=== PATIENT | male | born 1940 | race Caucasian/White ===

== ENCOUNTER 2022-07-18 09:07 | Emergency (ER) | payer MEDICARE, SELFPAY ==
--- NOTE | ~2022-07-18 | XR_ITS ---
EXAMINATION: XR CHEST CLINICAL INFORMATION: Difficulty breathing COMPARISON: 06/03/[address] TECHNIQUE: 2 views of the chest were obtained. FINDINGS: Lungs are hyperaerated with patchy bilateral airspace opacities possibly reflective of pneumonia. Chronicity uncertain as some abnormalities were seen in the lungs back in 2019.. I would recommend a follow-up study after medical management or chest CT for further clarification. Heart size normal with normal caliber pulmonary vessels. There is spondylitic change in the thoracic spine. XR/XR chest 2V IMPRESSION: Bilateral airspace opacities of uncertain chronicity.
[2022-07-18 09:16] VITALS: BP 143/59; PULSE 57; RESP 16; TEMP 36.6; O2SAT 99
[2022-07-18 09:32] VITALS: BP 143/59; PULSE 57; RESP 16; TEMP 36.6; O2SAT 99; BMI 21.6
--- NOTE | 2022-07-18 09:38 | ED_ITS ---
HPI - URI/Sore Throat General Chief Complaint: Upper Respiratory Symptoms Stated Complaint: cough Time Seen by Provider: 07/18/22 09:21 Source: patient Mode of arrival: ambulatory Limitations: no limitations History of Present Illness HPI Narrative: 82 yo male with history of mitral valve stenosis who presents to the ER for evaluation of productive cough for the last 3-4 weeks. He is worried about this because he has surgery for his MV stenosis coming up early next month. He states he has had cough productive of white phlegm, cannot say if it is worse at any point in a day or when he lays flat. He denies any shortness of breath or difficulty breathing. He walks 3 miles per day and has no dyspnea on exertion. He denies any fevers. He was taking and antitussive with resolution of the cough, when he stop taking the antitussive he states his cough returned 3 days later. He denies any chest pain, abdominal pain, nausea, vomiting, diarrhea. MD elicited complaint: cough and nasal congestion Onset (ago): week(s) (3) Consistency: intermittent Severity: moderate Description of mucous: clear and other (White) Able to tolerate fluids by mouth: Yes Exacerbating factors: nothing Relieving factors: OTC cold medicine Associated symptoms: denies other symptoms Treatments prior to arrival: none Related Data Previous Rx's Medication Instructions Recorded amoxicillin 875 mg-potassium 1 tab PO BID #20 tabs 07/18/22 clavulanate 125 mg tablet doxycycline monohydrate 100 mg 100 mg PO BID #20 caps 07/18/22 capsule Allergies Allergy/AdvReac Type Severity Reaction Status Date / Time Iodinated Contrast Media Allergy Unknown ANAPHYLAXIS Unverified 06/22/20 14:57 [CONTRAST, IV] iodine [IODINE] Allergy Unknown RASH Unverified 06/22/20 14:57 Review of Systems Review of Systems: Constitutional: No Fever, No Chills ENT/Mouth: No sore throat, No Rhinorrhea, No Swallowing Difficulty Cardiovascular: No Chest Pain, No SOB, No Orthopnea, No Edema Respiratory: + Cough, + Sputum, No Wheezing, No dyspnea Gastrointestinal: No Nausea, No Vomiting, No Diarrhea, No abdominal Pain Genitourinary: No Dysuria, No Urinary Frequency, No Hematuria Musculoskeletal: No joint pain, No Myalgias Skin: No Skin Lesions, No rash Neuro: No Weakness, No Numbness, No Dizziness, No Headache Psych: + Anxiety/Panic Heme/Lymph: No Bruising, No Lymphadenopathy PMFSH Social History Social History Advance Directives: Yes Advance Directives Information Provided: Yes Advance Directives on File: No Physical Exam Vital Signs: Vital Signs: Last Vital Signs Temp 97.9 F 07/18/22 09:32 Pulse 57 07/18/22 09:32 Resp 16 07/18/22 09:32 BP 143/59 H 07/18/22 09:32 Pulse Ox 99 07/18/22 09:32 O2 Del Method 07/18/22 09:32 BMI result Body Mass Index 21.6 Appearance: Alert. Oriented X3. No acute distress. Eyes: Pupils equal, round and reactive to light. ENT: Pharynx normal. Neck: Normal inspection. Neck supple. CVS: Normal heart rate and rhythm. Pulses normal. Respiratory: No respiratory distress. Breath sounds normal. Abdomen: Soft and nontender. +BS x4 Skin: Skin warm and dry. Normal skin color. Normal skin turgor. No rashes. Extremities: No lower extremity edema. No calf tenderness. Neuro: Oriented X 3. No motor deficit. No sensory deficit. Ambulates with sunni charo gait Course Course Course Narrative: 82 yo male with history of mitral valve stenosis with upcoming valve repair presents to the ER with productive cough x3-4 weeks. Nontoxic appearing with normal VS and unremarkable physical examination. Will get chest x-ray to rule out pneumonia, COVID swab, influenza swab. No evidence of any cardiac etiology. He appears well, ambulating around with no respiratory complaints. No cough heard during his visit today. Reevaluation(s) Reevaluation #1: He is negative for COVID influenza. His chest x-ray is abnormal, is showing bilateral patchy opacities. Reviewed imaging of his CT scan that was done in 2019, there was also some patchy opacities at that time. Unknown if these are chronic or acute. 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 He is not on any treatment or any issues with this. 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 Given his acute productive cough will treat empirically for possible community- acquired pneumonia with Augmentin and doxycycline added for atypical coverage. He will restart his antitussive. 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 He was given strict return precautions. MDM - URI/Sore Throat Lab Data Labs: Lab Results 07/18/22 07/18/22 Range/Units 09:40 09:40 COVID-19 (FAIZA) Negative (Negative) COVID-19 Clin Com See Note Influenza Type A (JUAN C) Negative (Negative) Influenza Type B (JUAN C) Negative (Negative) Influenza A & B Note See Note Discharge Plan Discharge Clinical Impression: Pneumonia Patient Disposition: Home, Self-Care Instructions: Pneumonia (ED) Additional Instructions: You tested negative for COVID-19 and influenza a and B today. Your x-ray today showed bilateral airspace opacities which may have also been present on your CT scan from 2019. Recommend taking the prescribed antibiotics as directed, complete the entire course. Recommend following up with her primary care doctor for repeat imaging of your chest in the future to ensure resolution. You may need a repeat CT scan at some point to ensure these have resolved. Recommend Mucinex 1200 mg 2 times a day for the next 5 days. This will help loosen the mucus and help you bring up more phlegm. If you develop new or worsening symptoms call 911 or come back to the ER for further evaluation. Prescriptions: New amoxicillin-pot clavulanate 875-125 mg tablet 1 tab PO BID Qty: 20 0RF doxycycline monohydrate 100 mg capsule 100 mg PO BID Qty: 20 0RF Interventions: ED Discharge Assessment Last Done: 07/18/22 11:06 Discharge Date/Time: 07/18/22 11:07
--- OUTSIDE RECORDS SUMMARY | 2022-07-18 10:08 | XMS_ITS | Continuity of Care Document ---
:1940 Author Organization [facility] Address [address] [place] [address]- Care Team Providers Name Role Phone Liliya Holden MD Primary Care Physician En[place] [facility] [place](s): 08/14/21 - 09/13/21 [facility] [address] [place] [id number] Attending Physician: Mariela Henning Admitting Physician: Mariela Henning Referring Physician: Admtr ArMichael Allergies, Adverse Reactions, Alerts Substance Reaction Severity Status Lactose intolerance Active contrast media (iodine-based) rash Ac tive Immunizations Given and Recorded Vaccine Date Status Refusal Reason SARS-CoV-2 (COVID-19) mRNA-1273 vaccine1 07/31/21 Recorde d SARS-CoV-2 (COVID-19) mRNA-1273 vaccine 12/18/20 Recorded SARS-CoV-2 (COVID-19) mRNA-1273 vaccine 11/20/20 Recorded 1Result Comment: Booster Medications acetaminophen-oxycodone 325 mg-5 mg oral tablet 2 tablet, By Mouth, Every 4 hours, PRN Pain , Moderate, # 35 capsule, 0 Refills, Maintenance, Tablet Start Date: 04/04/10 Status: Orderedbiotin 1000 mcg oral tablet 1 tablet = 1,000 mcg, By Mouth, Daily, # 30 tablet, 0 Refills, Maintenance, 08/14/21 15:05:00 EST, Tablet, Partial fill upon patient request if the prescription is for a schedule II opioid drug. Start Date: 08/14/21 Status: OrderedCelebrate Multivitamin By Mouth, Daily, 0 Refills, Maintenance, 08/14/21 15:04:00 EST, Partial fill upon patient request ifthe prescription is for a schedule II opioid drug. Start Date: 08/14/21 Status: OrderedColace sodium 100 mg oral capsule 1 capsule = 100 mg, By Mouth, 2 times a day, # 25 capsule, 0 Refills, Maintenance, Capsule Start Date: 04/04/10 Status: OrderedFish Oil 1000 mg oral capsule 1 capsule = 1,000 mg, By Mouth, 2 times a day, 0 Refills, Maintenance, 08/14/21 15:04:00 EST, Capsule, Partial fill upon patient request if the prescription is for a schedule II opioid drug. Start Date: 08/14/21 Status: OrderedGinseng 0 Refills, Maintenance, 08/14/21 15:05:00 EST, Partial fill upon patient request if the prescriptionis for a schedule II opioid drug. Start Date: 08/14/21 Status: OrderedGlucosamine Chondroitin By Mouth, Daily, 0 Refills, Maintenance, 08/14/21 15:06:00 EST, Partial fill upon patient request ifthe prescription is for a schedule II opioid drug. Start Date: 08/14/21 Status: OrderedMagnesium Carbonate = 54 mg, By Mouth, Daily, 0 Refills, Maintenance, 08/14/21 15:05:00 EST, Partial fill upon patient request if the prescription is for a schedule II opioid drug. Start Date: 08/14/21 Status: OrderedPepcid Complete By Mouth, Every 12 hours, 0 Refills, Maintenance, 08/14/21 15:06:00 EST, Partial fill upon patient request if the prescription is for a schedule II opioid drug. Start Date: 08/14/21 Status: Orderedturmeric 500 mg oral capsule 1 capsule = 500 mg, By Mouth, Daily, # 60 capsule, 0 Refills, Maintenance, 08/14/21 15:05:00 EST, Capsule, Partial fill upon patient request if the prescription is for a schedule II opioid drug. Start Date: 08/14/21 Status: Orderedvitamin E 400 iu oral capsule 1 capsule = 400 International_Units, By Mouth, Daily, # 30 capsule, 0 Refills, Maintenance, 08/14/2115:05:00 EST, Capsule, Partial fill upon patient request if the prescription is for a schedule II opioid drug. Start Date: 08/14/21 Status: Ordered Social History Social History Type Response Smoking Status Former smoker, quit more rachel n 30 days ago entered on: 08/14/21 Sex
--- OUTSIDE RECORDS SUMMARY | 2022-07-18 10:08 | XMS_ITS | Continuity of Care Document ---
:1940 Author Organization [facility] Address [address] [place] [address]- Care Team Providers Name Role Phone Adina REAL, Liliya Maria Primary Care Physician Encounter [facility] Date(s): 01/28/22 - 02/27/22 [facility] [address] [place] [address] [place] Allergies, Adverse Reactions, Alerts Substance Reaction Severity [...] Refills, Maintenance, Capsule Start Date: 04/04/10 Status: OrdereddiphenhydrAMINE 25 mg oral capsule 1 capsule = 25 mg, By Mouth, Once, Please take 1 capsule morning of planned CTA Scan, # 1 capsule, 0Refills, Soft Stop, 01/07/22 11:18:00 EDT, [facility]/pharmacy #[id number], Partial fill upon patient request if the prescription is for a schedule II opioid drug. Start Date: 01/07/22 Status: OrderedFish Oil 1000 mg oral capsule [...] opioid drug. Start Date: 08/14/21 Status: OrderedPepcid 20 mg oral tablet 1 tablet = 20 mg, By Mouth, 2 times a day, Take 1 tablet in the morning 1 day prior to scheduled CTAscan Take 1 tablet in the evening 1 day prior to scheduled CTA scan Take 1 tablet in the morning on the day of scheduled CTA scan, # 3 tablet, 0 Ref... Start Date: 01/07/22 Status: OrderedPepcid Complete By Mouth, Every 12 hours, 0 Refills, Maintenance, 08/14/21 15:06:00 EST, Partial fill upon patient request if the prescription is for a schedule II opioid drug. Start Date: 08/14/21 Status: OrderedpredniSONE 50 mg oral tablet 1 tablet = 50 mg, By Mouth, 2 times a day, Take 1 tablet in the morning 1 day prior to scheduled CTAscan Take 1 tablet in the evening 1 day prior to scheduled CTA scan Take 1 tablet in the morning on the day of scheduled CTA scan, # 3 tablet, 0 Ref... Start Date: 01/07/22 Status: Orderedturmeric 500 mg oral capsule 1 [...] smoker, quit more rachel n 30 days ago; Other: quit 27yo; entered on: 12/28/21 Sex
--- OUTSIDE RECORDS SUMMARY | 2022-07-18 10:08 | XMS_ITS | Continuity of Care Document ---
:1940 Author Organization [facility] Address [address] [place] [address]- Care Team Providers Name Role Phone Adina REAL, Liliya Maria Primary Care Physician Encounter [facility] Date(s): 01/11/22 - 02/10/22 [facility] [address] [place] [address] [place] Allergies, Adverse Reactions, Alerts Substance Reaction [...] capsule, 0Refills, Soft Stop, 01/07/22 11:18:00 EDT, [facility]/pharmacy #[id number], Partial fill upon patient request if the [...]
--- OUTSIDE RECORDS SUMMARY | 2022-07-18 10:08 | XMS_ITS | Continuity of Care Document ---
:1940 Author Organization [facility] Address [address] [place] [address]- Care Team Providers Name Role Phone Liliya Holden MD Primary Care Physician Encounter [facility] Date(s): 12/25/21 - 01/24/22 [facility] [address] [place] [id number] Attending Physician: Mariela Henning Admitting Physician: Admtr, Mariela Referring Physician: Admtr, Ar8 Allergies, Adverse Reactions, Alerts Substance Reaction Severity [...] capsule, 0Refills, Soft Stop, 01/07/22 11:18:00 EDT, [facility]/pharmacy #[id number], Partial fill upon patient request if the [...]
--- OUTSIDE RECORDS SUMMARY | 2022-07-18 10:08 | XMS_ITS | Continuity of Care Document ---
:1940 Author Organization [facility] Address [address] [place] [phone]- Care Team Providers Name Role Phone Adina REAL, Liliya Maria Primary Care Physician [place] [facility] [place] - 06/09/[address] [address]- Encounter Diagnosis Chest pain (Final) - 06/09/22 Discharge Disposition: A-D/C Home Attending Physician: Michael Cee MD Admitting Physician: Negar REAL, Dick Referring Physician: Not on Staff, Referring MD Allergies, Adverse Reactions, Alerts Substance Reaction Severity [...] II opioid drug. Start Date: 08/14/21 Status: OrderedFish Oil 1000 mg oral capsule [...] opioid drug. Start Date: 08/14/21 Status: Ordered Problem List Condition Effective Dates Status Health Status Informant Underweight(Confirmed) Active Results Radiology Reports Exam Date Time Procedure Performing Provider Status 06/08/22 5:35 PM Chest 2 Views Frontal and Lat Angely Fernandez; Timothy (Verified) Notes:(Chest 2 Views Frontal and Lat) Reason For Exam: Shortness of Breath RESULT: Chest 2 Views Frontal and Lat Chest 2 Views Frontal and Lat Hx of Present Illness: pt noted c p after 3 mile walk that pt usually walks as baseline pt denies pain at this time. Pt denies sob, productive cough, n v, dark colored stool; Reason: Shortness of Breath; Clinical Question(s): CHF COMPARISON: 04/27/2014 FINDINGS: LINES AND TUBES: None. LUNGS AND PLEURA: Chronic fibrotic changes are reidentified in both lungs. New areas of nodularity are apparent in theright mid and lower lung zones which are indeterminate. No pleural effusion or pneumothorax. HEART, MEDIASTINUM AND FABRICIO: No change. BONES AND SOFT TISSUES: No acute abnormality. IMPRESSION: New nodular areas in the right mid and lower lung zones are indeterminate. They could be inflammatory, infectious or neoplastic. If these persist after treatment, consider CT scan or PET CT scan. A critical result message (Yellow) has been communicated via the [employer] system on 06/08/2022 5:56 PM, Message ID [id number]. WSN: [id number] Ordering Physician: Matt Abreu Dictated By: Thomas Blake MD Dictated Date/Time: 06/08/22 5:56 pm Reviewed By: Thomas Blake MD Signed By: Thomas Blake MD Signed Date/Time: 06/08/22 5:56 pm Transcribed By: KIRAN Transcribed Date/Time: 06/08/22 5:52 pm Vital Signs Most recent to oldest 1 2 3 [Reference Range]: Height 175 cm 175 cm 175 cm (06/09/22 11:23 AM) (06/09/22 7:37 AM) (06/09/22 4:31 AM) Weight 55.5 kg 55.5 kg 55.5 kg (06/09/22 12:00 AM) (06/08/22 7:41 PM) (06/08/22 4:36 PM) Oxygen Saturation [94-100 %] 97 % 100 % 100 % (06/09/22 11:23 AM) (06/09/22 7:37 AM) (06/09/22 4:31 AM) Pulse Rate [55-90 bpm] 57 bpm 53 bpm 54 bpm (06/09/22 11:23 AM) *L* *L* (06/09/22 7:37 AM) (06/09/22 4:31 AM ) Body Mass Index [18.5-24.99] 18.12 18.12 18. 12 *L* *L* *L* (06/09/22 12:00 AM) (06/08/22 7:41 PM) (06/08/22 4:36 PM) Blood Pressure [90-138/55-84 138/65 mm Hg 126/58 mm Hg 121 /64 mm Hg mm Hg] (06/09/22 11:23 AM) (06/09/22 7:37 AM) (06/09/22 4:31 AM) Respiratory Rate [16-30 18 br/min 18 br/min 18 br/mi n br/min] (06/09/22 11:23 AM) (06/09/22 9:00 AM) (06/09/22 7:37 AM) Temperature [96.8-100.4 97.8 DegF 97.7 DegF 98.1 Deg F DegF] (06/09/22 11:23 AM) (06/09/22 7:37 AM) (06/09/22 4:31 AM) Mode of Delivery (Oxygen) Room air Room air Room a ir (06/09/22 11:23 AM) (06/09/22 7:37 AM) (06/09/22 4:31 AM) Blood pressure sites Arm, right Arm, left Arm, right (06/09/22 11:23 AM) (06/09/22 7:37 AM) (06/09/22 4:31 AM) Temperature Route Oral Oral Oral (06/09/22 11:23 AM) (06/09/22 7:37 AM) (06/09/22 4:31 AM) Dry Weight 55.5 kg 55.5 kg 55.5 kg (06/09/22 12:00 AM) (06/08/22 7:41 PM) (06/08/22 4:36 PM) Weight Obtained Via Patient/family stated (06/08/22 4:36 PM) Dry Weight Obtained Via Patient/family stated (06/08/22 4:36 PM) Social History Social History Type Response Smoking Status Former smoker, quit more rachel n 30 days ago; Other: quit 27yo; entered on: 12/28/21 Sex Note [employer]ers[employer] , CIS S: TRANSCRIBE Thomas Blake MD: VERIFY Event Display: Result: Authored Date: [id number] Chest 2 Views Frontal and Lat Hx of Present Illness: pt noted c p after 3 mile walk that pt usually walks as baseline pt denies pain at this time. Pt denies sob, productive cough, n v, dark colored stool; Reason: Shortness of Breath; Clinical Question(s): CHF COMPARISON: 04/27/2014 FINDINGS: LINES AND TUBES: None. LUNGS AND PLEURA: Chronic fibrotic changes are reidentified in both lungs. New areas of nodularity are apparent in theright mid and lower lung zones which are indeterminate. No pleural effusion or pneumothorax. HEART, MEDIASTINUM AND FABRICIO: No change. BONES AND SOFT TISSUES: No acute abnormality. IMPRESSION: New nodular areas in the right mid and lower lung zones are indeterminate. They could be inflammatory, infectious or neoplastic. If these persist after treatment, consider CT scan or PET CT scan. A critical result message (Yellow) has been communicated via the [employer] system on 06/08/2022 5:56 PM, Message ID [id number]. WSN: [id number] Ordering Physician: Matt Abreu Dictated By: Thomas Blake MD Dictated Date/Time: 06/08/22 5:56 pm Reviewed By: Thomas Blake MD Signed By: Thomas Blake MD Signed Date/Time: 06/08/22 5:56 pm Transcribed By: KIRAN Transcribed Date/Time: 06/08/22 5:52 pm Care Team PersonnelName: Liliya Holden MD Address: [address] [place] [address]
--- OUTSIDE RECORDS SUMMARY | 2022-07-18 10:08 | XMS_ITS | Continuity of Care Document ---
:1940 Author Organization [facility] Address [address] [place] [address]- Care Team Providers Name Role Phone Liliya Holden MD Primary Care Physician Encounter [facility] [place] Date(s): 12/25/21 - 01/01/22 [facility] [address] [place] [phone]- Attending Physician: Justin Means MD Referring Physician: Liliya Holden MD Allergies, Adverse Reactions, Alerts Substance Reaction [...] opioid drug. Start Date: 08/14/21 Status: Ordered Vital Signs Most recent to oldest [Reference Range]: 1 Weight 62.1 kg (12/25/21 2:18 PM) Oxygen Saturation [94-100 %] 94 % (12/25/21 2:18 PM) Pulse Rate [55-90 bpm] 80 bpm (12/25/21 2:18 PM) Blood Pressure [90-138/55-84 mm Hg] 116/70 mm Hg (12/25/21 2:18 PM) Respiratory Rate [16-30 br/min] 18 br/min (12/25/21 2:18 PM) Mode of Delivery (Oxygen) Room air (12/25/21 2:18 PM) Blood pressure sites Arm, right (12/25/21 2:18 PM) Weight Obtained Via Patient/family stated (12/25/21 2:18 PM) Social History Social History Type Response Smoking Status Former smoker, quit more rachel n 30 days ago; Other: quit 27yo; entered on: 12/28/21 Sex
--- OUTSIDE RECORDS SUMMARY | 2022-07-18 10:08 | XMS_ITS | Continuity of Care Document ---
:1940 Author Organization [facility] Address [address] [place] [phone]- Care Team Providers Name Role Phone Adina REAL, Liliya Maria Primary Care Physician Encounter [facility] [place] Date(s): 08/09/21 - 09/08/21 [facility] [address] [place] [address]- Allergies, Adverse Reactions, Alerts Substance Reaction Severity [...]
--- OUTSIDE RECORDS SUMMARY | 2022-07-18 10:08 | XMS_ITS | Continuity of Care Document ---
:1940 Author Organization [facility] Address [address] [place] [phone]- Care Team Providers Name Role Phone Adina REAL, Liliya Maria Primary Care Physician Encounter [facility] [place] Date(s): 01/14/22 - 02/13/22 [facility] [address] [place] [phone]- [place] Allergies, Adverse Reactions, Alerts Substance Reaction [...] capsule, 0Refills, Soft Stop, 01/07/22 11:18:00 EDT, [facility]/pharmacy #[id number], Partial fill upon patient request if the [...]
--- OUTSIDE RECORDS SUMMARY | 2022-07-18 10:08 | XMS_ITS | Continuity of Care Document ---
:1940 Author Organization [facility] Address [address] [place] [phone]- Care Team Providers Name Role Phone Adina REAL, Liliya Maria Primary Care Physician [place] [facility] [place]21 [facility] [address] [place] [address]- Attending Physician: Justin Means MD Referring Physician: Rodriguez Brown MD Allergies, Adverse Reactions, Alerts Substance Reaction [...] oldest [Reference Range]: 1 Weight 62.1 kg (08/14/21 3:02 PM) Oxygen Saturation [94-100 %] 97 % (08/14/21 3:02 PM) Pulse Rate [55-90 bpm] 72 bpm (08/14/21 3:02 PM) Blood Pressure [90-138/55-84 mm Hg] 116/72 mm Hg (08/14/21 3:02 PM) Respiratory Rate [16-30 br/min] 18 br/min (08/14/21 3:02 PM) Mode of Delivery (Oxygen) Room air (08/14/21 3:02 PM) Blood pressure sites Arm, right (08/14/21 3:02 PM) Weight Obtained Via Patient/family stated (08/14/21 3:02 PM) Social History Social History Type Response Smoking Status Former smoker, quit more rachel n 30 days ago entered on: 08/14/21 Sex
--- OUTSIDE RECORDS SUMMARY | 2022-07-18 10:08 | XMS_ITS | Continuity of Care Document ---
:1940 Author Organization [facility] Address [address] [place] [phone]- Care Team Providers Name Role Phone Liliya Holden MD Primary Care Physician [place] [facility] [place] 01[place]22 [facility] [address] [place] [phone]- Attending Physician: Mareila Henning Admitting Physician: Mariela Henning Referring Physician: Mariela Henning Allergies, Adverse Reactions, Alerts Substance Reaction Severity [...] capsule, 0Refills, Soft Stop, 01/07/22 11:18:00 EDT, [facility]/pharmacy #[id number], Partial fill upon patient request if the [...]
--- OUTSIDE RECORDS SUMMARY | 2022-07-18 10:08 | XMS_ITS | Continuity of Care Document ---
:1940 Author Organization [facility] Address [address] [place] [phone]- Care Team Providers Name Role Phone Adina REAL, Liliya Maria Primary Care Physician [place] [facility] [place] Date(s): 01/28/22 - 02/27/22 [facility] [address] [place] [phone]- [place] Allergies, Adverse Reactions, Alerts Substance Reaction [...] capsule, 0Refills, Soft Stop, 01/07/22 11:18:00 EDT, [facility]/pharmacy #[id number], Partial fill upon patient request if the [...]
[2022-07-18 10:09] LABS: COVID-19 Test Negative (Negative); IDNOW Serial# 16C4AD1C; IDNOW Serial# 55D5AD1C; Influenza A Negative (Negative); Influenza B2 Negative (Negative)
== END 2022-07-18 11:07 | disposition home or self-care (01) ==
PROVIDERS: Physician Assistant; Emergency Provider Student in an Organized Health Care Education/Training Program; PCP Internal Medicine
DX: J18.9 Pneumonia, unspecified organism (principal); Z20.822 Contact with and (suspected) exposure to COVID-19
CPT/HCPCS: 71046; 87502; 87635; 99283

== ENCOUNTER 2023-06-15 09:49 | Emergency (ER) | payer MEDICARE, SELFPAY ==
[2023-06-15 09:53] VITALS: BP 146/60; PULSE 51; RESP 19; TEMP 36.6; O2SAT 98; BMI 19.2
== END 2023-06-15 12:43 | disposition left against medical advice (07) ==
PROVIDERS: Emergency Provider Emergency Medicine; PCP Internal Medicine
DX: H92.01 Otalgia, right ear (principal)
CPT/HCPCS: 99281

== ENCOUNTER 2024-02-27 09:04 | Emergency (ER) | payer MEDICARE, SELFPAY ==
[2024-02-27 09:09] VITALS: BP 140/56; PULSE 52; RESP 16; TEMP 36.3; O2SAT 98; BMI 20.3
== END 2024-02-27 11:03 | disposition left against medical advice (07) ==
PROVIDERS: Emergency Provider Emergency Medicine
DX: S00.572A Other superficial bite of oral cavity, initial encounter (principal); X58.XXXA Exposure to other specified factors, initial encounter; Y93.9 Activity, unspecified; Y92.9 Unspecified place or not applicable; Y99.9 Unspecified external cause status; Z53.21 Procedure and treatment not carried out due to patient leaving prior to being seen by health care provider
CPT/HCPCS: 99281

== ENCOUNTER 2025-02-26 13:05 | Emergency (ER) | payer MEDICARE, SELFPAY ==
--- NOTE | ~2025-02-26 | CT_ITS ---
CLINICAL HISTORY: weakness CT head without contrast. COMPARISON: None FINDINGS: Loss of eduardo-white matter differentiation within the posterior right occipital lobe. No intracranial hemorrhage. Basal ganglia mineralization. The ventricles are proportional with the degree of moderate global cerebral volume loss without evidence of hydrocephalus. Basilar cisterns are patent. There are periventricular areas of low attenuation compatible with mild white matter small vessel disease. Posterior fossa appears unremarkable. Visualized paranasal sinuses and mastoid air cells are clear. Atherosclerotic intracranial vasculature. No calvarial fracture. IMPRESSION: 1. 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 Recommend correlation with prior imaging and clinical history. MR would be helpful for further characterization. 2. No intracranial hemorrhage. This document has been electronically signed by: Mario Betancourt MD on 02/26/2025 14:33:44
[2025-02-26 13:09] VITALS: BP 117/67; PULSE 68; RESP 18; TEMP 36.6; O2SAT 99; BMI 21.8
--- NOTE | 2025-02-26 13:17 | ECG_ITS ---
Test Reason : WEAKNESS Blood Pressure : */* mmHG Vent. Rate : 61 BPM Atrial Rate : 61 BPM P-R Int : 234 ms QRS Dur : 158 ms QT Int : 462 ms P-R-T Axes : 110 -47 36 degrees QTcB Int : 465 ms Sinus rhythm with 1st degree A-V block with Premature atrial complexes Right bundle branch block Left anterior fascicular block Bifascicular block Abnormal ECG When compared with ECG of 03-Jun-2019 15:35, Premature atrial complexes are now Present LA interval has increased Referred By: Zafar Landon Electronically Signed By: Stanford Bhatti
--- NOTE | 2025-02-26 13:22 | ED.GENADULT ---
HPI - General Adult General Chief complaint: Weakness Stated complaint: off balance memory loss Time Seen by Provider: 02/26/25 13:57 Source: patient Mode of arrival: ambulatory Limitations: no limitations History of Present Illness ED Provider: HPI narrative: 85-year-old male, he states he has been forgetful and has had some instability when he walks, he is still drives lives by himself and travels back and forth to [place] does his own finances. He states about 3 months ago he fell and hit his head and forward had a CAT scan and he feels like he has memory issues started then. Otherwise no fevers or chills, no dysuria. Related Data Previous Rx's ?Medication ?Instructions ?Recorded amoxicillin 875 mg-potassium 1 tab PO BID #20 tabs 07/18/22 clavulanate 125 mg tablet doxycycline monohydrate 100 mg 100 mg PO BID #20 caps 07/18/22 capsule Allergies Allergy/AdvReac Type Severity Reaction Status Date / Time Iodinated Contrast Media Allergy Unknown ANAPHYLAXIS Verified 02/26/25 13:12 [CONTRAST, IV] iodine [IODINE] Allergy Unknown RASH Verified 02/27/24 09:14 Review of Systems Constitutional: Constitutional: Reports as per [facility] Social History Social History Smoked in Last 30 Days: No Use of substances other than those prescribed or required for medical reasons: No Advance Directives: Yes Advance Directives Information Provided: No Advance Directives on File: No Physical Exam ED Vital Signs: Vital Signs - 24 hr 02/26/25 13:09 Temperature 97.9 F Pulse Rate 68 Respiratory Rate 18 Blood Pressure 117/67 Pulse Oximetry 99 Oxygen Delivery Method Room Air BMI result Body Mass Index 21.8 Const Other: Gen: ?Elderly male appropriate for age, no facial trauma no head trauma HEENT: PERRLA, EOMI, MMM, no nystagmus horizontal and vertical Neck: Supple, no LAD CV: RRR, no obvious murmurs appreciated Resp: ?No wheezing rales rhonchi no stridor moving air well Abd: ?Bowel sounds are present, no tenderness no rebound no rigidity MSK: FROM, strength 5/5 all extremities Skin: Warm, dry, intact, Neuro: ?Alert and oriented x3, moving upper and lower extremities symmetrically, no obvious facial asymmetry noted no dysmetria noted upper or lower extremities Course Course Course Narrative: RME, this is a rapid medical exam performed by Gold Landon please refer to primary provider for complete H&P- 85-year-old male presents for evaluation of several months' worth of forgetfulness that he feels is worsening. He also reports difficulty walking in a straight line. Plan for basic labs, CT scan of the brain. He is neurologically intact in triage Medical Decision Making Medical Decision Making MDM Narrative: Consideration for workup as below, patient is otherwise well-appearing, has been otherwise managing well but does report some memory issues disposition to be determined 0312: 1. 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 Recommend correlation with prior imaging and clinical history. MR would be helpful for further characterization. 2. No intracranial hemorrhage I spoke to patient about his CT findings, he has not had any new symptoms this is going on for the past few months, and now re-examined him he has no dysmetria he has no visual field changes, he has no nystagmus, I offered an admission for him he states he would prefer to be discharged to have follow up with the PCP so I feel that this is very reasonable as he has been walking he continues to walk up to 3 miles a day he drives and he can follow up with the PCP and have his out medical optimization. Differential Diagnosis Differential Diagnoses: The differential diagnosis associated with the presentation includes Dementia, UTI, dehydration, cerebellar stroke, cerebellar mass, medication reaction Admission/Observation Consideration of admission/observation: Escalation of care including admission/observation considered Lab Data [facility] Lab Attestation statement: I reviewed the patient's lab results. 02/26/25 14:04 02/26/25 14:04 Labs: Lab Results 02/26/25 02/26/25 Range/Units 14:04 14:34 WBC 5.0 (4.8-10.8) X10*3/uL RBC 3.52 L (4.60-5.80) X10*6/uL Hgb 11.6 L (14.0-18.0) g/dl Hct 33.1 L (42.0-52.0) % MCV 94.0 (80.0-98.0) fL MCH 33.0 (27.0-33.0) pg MCHC 35.0 (31.0-36.0) g/dl RDW 12.5 (11.0-16.0) % Plt Count 115 L (160-400) X10*3/uL MPV 9.5 (9.4-12.4) fL Immature Gran % (Auto) 0.2 (0.0-0.4) % Neut % (Auto) 64.7 (45-73) % Lymph % (Auto) 22.8 (20-40) % [place] % (Auto) 8.3 (2-11) % Eos % (Auto) 2.6 (0-4) % Baso % (Auto) 1.4 (0-2) % Lymph # (Auto) 1.1 L (1.2-4.9) X10*3/uL [place] # (Auto) 0.4 (0.1-1.2) X10*3/uL Eos # (Auto) 0.1 (0.0-0.4) X10*3/uL Baso # (Auto) 0.1 (0.0-0.2) X10*3/uL Abs Immat Gran (auto) 0.01 (0.00-0.03) X10*3/uL Absolute Neuts (auto) 3.2 (2.0-8.3) x10*3/uL Absolute Nucleated RBC 0.000 (0.0-0.012) X10*3/uL Nucleated RBC % (auto) 0.0 (0.0-0.2) /100WBC Sodium 141 (135-145) mmol/L Potassium 4.2 (3.3-5.1) mmol/L Chloride 109 H (96-108) mmol/L Carbon Dioxide 25 (22-29) mmol/L Anion Gap 11 L (12-20) BUN 31 H (9-16) mg/dL Creatinine 0.94 (0.5-1.4) mg/dL Estim Creat Clear Calc 49.2 Estimated GFR > 60 Random Glucose 106 (60-115) mg/dL Calcium 9.3 (8.4-10.2) mg/dL Total Bilirubin 1.1 H (0.0-1.0) mg/dL AST 25 (5-37) U/L ALT 11 (0-40) U/L Alkaline Phosphatase 52 (39-117) U/L Total Protein 6.8 (6.5-8.0) g/dL Albumin 4.2 (3.5-5.0) g/dL Lipase 29 (8-78) U/L Urine Color Yellow Urine Appearance Clear Urine pH 5.0 (5.0-9.0) Ur Specific Cand[place] 1.015 (1.005-1.025) Urine Protein Negative (Neg-Trace) mg/dL Urine Glucose (UA) Negative (Negative) mg/dL Urine Ketones Negative (Negative) mg/dL Urine Blood Trace H (Negative) Urine Nitrite Negative (Negative) Ur Leukocyte Esterase Negative (Negative) Urine RBC 3-5 H (0-2) /HPF Urine WBC 0-5 (0-5) /HPF Ur Squamous Epith Cells 0-2 (0-2) /HPF Urine Bacteria None Seen (None Seen) Hyaline Casts 0-2 (0-2) /LPF Influenza Type A (PCR) NEGATIVE (Negative) Influenza Type B (PCR) NEGATIVE (Negative) RSV RNA Qual (PCR) NEGATIVE (Negative) SARS-CoV-2 RNA (RT-PCR) NEGATIVE (Negative) Independent Interpretation I performed an independent interpretation of an: EKG (61 otherwise normal ECG without dysrhythmia, AV basilio blocks or ST-T changes to suspect underlying ACS, my independent interpretation) Radiology Impression Discussion of test interpretation with radiology: I have reviewed the radiologist's reading. Radiologist Impression: 1. 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 Recommend correlation with prior imaging and clinical history. MR would be helpful for further characterization. 2. No intracranial hemorrhage Discharge Plan Discharge Clinical Impression: Unsteady gait, Occipital stroke Patient Disposition: Home, Self-Care Additional Instructions: Evaluated with unsteady gait for months, your workup today included EKG, urinalysis, cat scan, viral swab, CAT scan of the brain revealed possibly right occipital lobe stroke, it is a small area, you would need outpatient MRI we discussed about whether the reasonable to admit you to the hospital for medical optimization and a brain MRI, but it is also reasonable for you to follow up with the primary care physician as this is now going on for the past few months he has been experienced these symptoms furthermore your physical exam has been completely reassuring some not sure this is an stroke finding. In the meantime just be careful when you walk in you drive if you have worsening symptoms concerns come back to the ER otherwise follow up with the PCP. Prescriptions: No Action amoxicillin-pot clavulanate 875-125 mg tablet 1 tab PO BID Qty: 20 0RF doxycycline monohydrate 100 mg capsule 100 mg PO BID Qty: 20 0RF Referrals: Ninoska Vila RN [Emergency Nurse] - Print Language: Namibian
[2025-02-26 14:07] LABS: MANUAL DIFF FLAG NO
[2025-02-26 14:09] LABS: Basophils Absolute Auto 0.1 X10*3/uL (0.0-0.2); Basophils Percent Auto 1.4 % (0-2); Eosinophils Absolute Auto 0.1 X10*3/uL (0.0-0.4); Eosinophils Percent Auto 2.6 % (0-4); Hematocrit 33.1 % (42.0-52.0); Hemoglobin 11.6 g/dl (14.0-18.0); Imm Gran Abs Auto 0.01 X10*3/uL (0.00-0.03); Imm Gran Pct Auto 0.2 % (0.0-0.4); Lymphocytes Absolute Auto 1.1 X10*3/uL (1.2-4.9); Lymphocytes Percent Auto 22.8 % (20-40); Mean Platelet Volume 9.5 fL (9.4-12.4); Monocytes Absolute Auto 0.4 X10*3/uL (0.1-1.2); Monocytes Percent Auto 8.3 % (2-11); Neutrophils Absolute Auto 3.2 x10*3/uL (2.0-8.3); Neutrophils Percent Auto 64.7 % (45-73); Platelet Count 115 X10*3/uL (160-400); Red Blood Count 3.52 X10*6/uL (4.60-5.80); Red Cell Distribution Width 12.5 % (11.0-16.0)
--- OUTSIDE RECORDS SUMMARY | 2025-02-26 14:14 | XMS_ITS | Continuity of Care Document ---
Author Organization [facility] Address [address] [facility] [address] [place] [address] Phone Care Team Providers Care Arc And Gas Welder Name Role Phone Zion Jauregui MD Unavailable [...] Diagnoses Date Provider Providers Copied on Encounter [facility], [address] [facility] [address], [place], [place], [address] [place] [address], tel:[phone] [facility] No Information Mar-3 1-201 0 Shania Donovan. [address] [facility], [place], [address] [place] [address], . tel:[phone] Referring Provider: Zion Montejo, [address] [facility], [place], [address] [place] [address]. tel:[phone] [facility], [address] [facility] [address] , [place], [address] [place] [address], tel:[phone] [facility] No Information Mar-3 0-[address] [facility], [address] [facility], [place], [address] [place] [address], tel:[phone] [facility] No Information Mar-1 8-201 0 Rani Sulema. [address] [facility], [place], [address] [place] [address], . tel:[phone] Referring Provider: Sulema Baumaner, [address], [place], [address] [place] [address]. tel:[phone] [facility], [address] [facility], [place], [address] [place] [address], tel:[phone] [facility] No Information Nathaniel-0 6-201 0 [place] Sulema. [address] [facility], [place], [address] [place] [address], . tel:[phone] Referring Provider: Sulema Saravia, [address] [facility], [place], [address] [place] [address]. tel:[phone] [facility], [address] [facility], [place], [address] [place] [address], tel:[phone] [facility] No Information Dec-0 8-200 9 Rani Sulema. [address], [place], [address] [place] [address], . tel:[phone] Referring Provider: Sulema Saravia, [address], [place], [address]. tel:[phone] [facility], [address] [facility], [place], [place], [id number], tel:[phone] [facility] No Information Dec-0 200 9 Saji Veronica. [address], [id number], . tel:[phone] Referring Provider: Jeremías Petersen, [address], [place], [address]. tel:[phone] [facility], [address], [id number], tel:[phone] [facility] No Information Dec-0 9 Saji Veronica. [address], [id number], [place]. tel:[phone] Referring Provider: Jeremías Petersen, [address], [address]. tel:[phone] Office/Outpt E&M Estab Phyllis RAMIREZ, [address], [facility] [address], [place], [place], [id number], tel:[phone] Phyllis RAMIREZ No Information Dec-0 200 9 No Information Referring Provider: Jeremías Petersen, [address], [address]. tel:[phone] [facility], [address], [place], [place], [id number], tel:[phone] [facility] No Information Dec-0 200 9 [facility]. [address], [place], [address] [place] [address], . tel:[phone] Referring Provider: Jeremías Petersen, [address] [facility], [place], [address] [place] [address]. tel:[phone] [facility], [address] [facility] [address] , [place], [address] [place] [address], tel:[phone] [facility] No Information 9 Saji Veronica. [address] [facility], [place], [address] [place] [address], . tel:[phone] Referring Provider: Jeremías Peetrsen, [address], [place], [address] [place] [address]. tel:[phone] Offic/outpt E&m Estab Low-mod [facility], [address] [place] [address], [place], [address] [place] [address], tel:[phone] [facility] No Information 9 Raymond Aburto. [address], [place], [address] [place] [address], . tel:[phone] Referring Provider: Lamonte Torres, [address], [place], [address] [place] [address]. tel:[phone] [facility], [address] [facility], [place], [address] [place] [address], tel:[phone] [facility] No Information 9 Raymond Aburto. [address], [place], [address] [place] [address], . tel:[phone] Referring Provider: Lamonte Torres, [address], [place], [address] [place] [address]. tel:[phone] [facility], [address], [place], [address] [place] [address], tel:[phone] [facility] No Information 9 Raymond Aburto. [address] [place], [place] [address]way [facility], [place], [address] [place] [address], . tel:[phone] Referring Provider: Lamonte Torres, [address] [place] [address], [place], [address] [place] [address]. tel:[phone] [facility], [address] [facility], [place], [address] [place] [address], tel:[phone] [facility] No Information 8 Saji Veronica. [address] [place] [address], [address] [place] [address], . tel:[phone] Referring Provider: Jeremías Petersen, [address] [place] [address], [address] [place] [address]. tel:[phone] Offic Cons New/Estab Low Phyllis RAMIREZ, [address], [facility] [address], [place], [place], [id number], tel:[phone] Phyllis RAMIREZ No Information 8 No Information Referring Provider: Jeremías Petersen, [address] [place] [address], [address] [place] [address]. tel:[phone] [facility], [address] [facility], [place], [address] [place] [address], tel:[phone] [facility] No Information 8 Roe Cotto. [address], [place], [address] [place] [address], . tel:[phone] Referring Provider: [place], [address], [place], [address] [place] [address]. tel:[phone] [facility], [address] [place], [place], [id number], tel:[phone] [facility] No Information 8 Saji Veronica. [address], [place], [id number], . tel:[phone] Referring Provider: Jeremías Petersen, [address], [address] [place] [address]. tel:[phone] [facility], [address] [facility], [place], [id number], tel:[phone] [facility] No Information 8 [facility]. [address], [address] [place] [address], . tel:[phone] Referring Provider: Jeremías Petersen, [address], [address] [place] [address]. tel:[phone] [facility], [address], [place], [id number], tel:[phone] [facility] No Information 8 Keagan Oneal. [address], [address] [place] [address], . tel:[phone] Referring Provider: Jeremías Petersen, [address], [address] [place] [address]. tel:[phone] [facility], [address], [place], [id number], tel:[phone] [facility] No Information 8 Saji Veronica. [address], [id number], . tel:[phone] Referring Provider: Jeremías Petersen, [address], [address]. tel:[phone] [facility], [address], [place], [place], [id number], tel:[phone] [facility] No Information 8200 8 Saji Cochran [address], [id number], . tel:[phone] Referring Provider: Jeremías Petersen, [address], [address]. tel:[phone] Family History Family Member Type Diagnosis Age At Onset Father Problem (finding) chronic obstructive jane g disease 82 Mother Problem (finding) Peritonits/ Diverticuli tis 77 Payers Payer name Insurance type Covered democrat ID Sal espinal(s) Medicare [id number] [employer] Benefit Plan [id number] Social History Type Description Quantity Date Captured [...]
[2025-02-26 14:22] LABS: Alanine Aminotransferase 11 U/L (0-40); Albumin Level 4.2 g/dL (3.5-5.0); Alkaline Phosphatase 52 U/L (39-117); Anion Gap 11 (12-20); Aspartate Amino Transferase 25 U/L (5-37); Bilirubin Total 1.1 mg/dL (0.0-1.0); Blood Urea Nitrogen 31 mg/dL (9-16); Calcium 9.3 mg/dL (8.4-10.2); Carbon Dioxide 25 mmol/L (22-29); Chloride 109 mmol/L (96-108); Creatinine Clr Calc Pharmacy 49.2; Estimated Glomerular Filt Rate > 60; Glucose Random 106 mg/dL (60-115); Lipase 29 U/L (8-78); Potassium 4.2 mmol/L (3.3-5.1); Sodium 141 mmol/L (135-145); Total Protein 6.8 g/dL (6.5-8.0)
[2025-02-26 14:39] LABS: Appearance Urine Clear; Color Urine Yellow; Glucose Urine UA Negative (Negative); Leukocyte Esterase Urine Negative (Negative); Nitrite Urine Negative (Negative); Specific Gravity - Urine 1.015 (1.005-1.025); UMIC TRIGGER UACC YES; Urine Blood Trace (Negative); Urine Ketones Negative (Negative); Urine Protein Negative (Neg-Trace)
[2025-02-26 14:44] LABS: Bacteria Urine None Seen (None Seen); Hyaline Casts Urine 0-2 /LPF (0-2); Squamous Epithelial Cell Urine 0-2 /HPF (0-2); WBC Urine 0-5 /HPF (0-5)
[2025-02-26 14:46] LABS: Influenza A PCR NEGATIVE (Negative); Influenza B PCR NEGATIVE (Negative); Resp Syncy Virus RNA Qual PCR NEGATIVE (Negative); SARS COV2 PCR INHOUSE NEGATIVE (Negative)
[2025-02-26 16:10] VITALS: BP 121/45; PULSE 58; RESP 12; O2SAT 99
[2025-02-26 16:12] VITALS: BP 121/45; PULSE 58; RESP 12; TEMP 36.6; O2SAT 99
== END 2025-02-26 16:19 | disposition home or self-care (01) ==
PROVIDERS: Physician Assistant; Emergency Provider Emergency Medicine; PCP Internal Medicine
DX: R26.9 Unspecified abnormalities of gait and mobility (principal); R26.2 Difficulty in walking, not elsewhere classified
CPT/HCPCS: 0241U; 36415; 70450; 80053; 81001; 83690; 85025; 93005; 99284

== ENCOUNTER → 2025-02-26 13:17 | Outpatient (BNV) | payer MEDICARE, SELFPAY | PROVIDERS: Emergency Provider Emergency Medicine; PCP Internal Medicine; Visit Provider Internal Medicine Cardiovascular Disease | DX: I49.1 Atrial premature depolarization (principal); I45.2 Bifascicular block | CPT/HCPCS: 93010 ==

== ENCOUNTER → 2025-02-26 13:18 | Outpatient (BNV) | payer MEDICARE, SELFPAY | PROVIDERS: Emergency Provider Emergency Medicine; PCP Internal Medicine; Visit Provider Radiology Diagnostic Radiology | DX: I63.531 Cerebral infarction due to unspecified occlusion or stenosis of right posterior cerebral artery (principal) | CPT/HCPCS: 70450 ==

== ENCOUNTER 2025-03-01 08:37 | Inpatient (IN) | payer MEDICARE, SELFPAY ==
--- NOTE | ~2025-03-01 | US_ITS ---
CLINICAL HISTORY: Recurrent strokes US Bilateral Carotid Duplex Comparison: None available Findings: Mixed and mild plaque within the imaged common carotid arteries. Mixed and mild plaque within the imaged carotid bulbs. Color doppler and spectral tracings unremarkable, accounting for vessel tortuosity. Peak systolic velocities: Right CCA: 117 cm/s. Right ICA: 45 cm/s. ICA/CCA ratio: 0.4. Right ECA: 91 cm/sec Right vertebral artery flow antegrade Imaged right subclavian 100 cm/sec. Left CCA: 107 cm/s. Left ICA: 90 cm/s. ICA/CCA ratio: 0.8. Left ECA: 41 cm/sec Left vertebral artery flow antegrade. Imaged left subclavian with mild echogenic plaque and 99 cm/sec. IMPRESSION: 1. No significant internal carotid artery stenosis (0-49% stenosis), by SRU consensus guidelines. 2. Imaged vertebral arteries demonstrate antegrade flow at this time. This document has been electronically signed by: Marbin Duron MD on 03/01/2025 19:54:28
--- NOTE | ~2025-03-01 | CT_ITS ---
EXAMINATION: CT HEAD WITHOUT CONTRAST CLINICAL INFORMATION: Unsteadiness COMPARISON: February 26, 2025 TECHNIQUE: Contiguous axial imaging was performed from the skull base to vertex without intravenous administration of contrast. This CT examination was performed using dose optimization techniques as appropriate, variously including the following: *Automated exposure control *Adjustment of mA and/or kV according to patient size (this includes techniques or standardized protocols for targeted exams where dose is matched to indication/reason for exam; i.e. extremities or head) *Use of iterative reconstruction technique DLP: 575 mGy-cm FINDINGS: Bilateral multifocal patchy and confluent deep periventricular white matter hypodensities involving centrum semiovale and bonilla radiata. No acute intracranial hemorrhage, mass effect, midline shift, hydrocephalus or herniation. Multifocal old lacunar infarcts, basal ganglia and extracapsular. Frankel-white matter differentiation is normal. Posterior cranial fossa contents demonstrated normal position of the cerebellar tonsils. Prominence of the extra-axial CSF spaces cerebral sulci and ventricles. Focal encephalomalacia, right parietal/superior parietal lobule. Calcified plaques in the cavernous supraclinoid segments of the ICAs. No air-fluid levels in the paranasal sinuses. Tympanic cavities and mastoid cells are aerated. Pneumatized petrous apices, congenital. CT/CT head/brain wo IV con IMPRESSION: No acute intracranial hemorrhage. Small vessel occlusive disease. Global cerebral atrophy. Prior vascular insult posterior right MCA territory. Atherosclerosis disease, intracranial. Overall stable appearance of the brain. Electronically signed by: Higinio Brantley MD 03/01/2025 10:15 AM EDT
--- NOTE | ~2025-03-01 | MR_ITS ---
EXAMINATION: MR BRAIN WITHOUT IV CONTRAST HISTORY: Unsteadiness, R/O cerebellar stroke TECHNIQUE: Sagittal T1, and axial T1, FLAIR, T2, gradient echo, and diffusion weighted MR images of the brain were obtained. COMPARISON: Correlation is made with an unenhanced head CT performed earlier in the day. FINDINGS: There is diffuse prominence of the ventricular system and cortical sulci, consistent with atrophy. Periventricular and subcortical white matter hyperintensities are noted on the FLAIR and T2-weighted images which are nonspecific, but often seen in the setting of small vessel ischemic disease. There is an old right occipital infarct. There are 2 adjacent punctate foci of slightly increased signal intensity in the left cerebellar hemisphere on diffusion-weighted images, which demonstrate decreased signal intensity on ADC map. These may represent tiny subacute infarcts. There is no mass effect or midline shift. No intra or extra-axial fluid collections are identified. Normal vascular flow voids are noted in the basilar and carotid arteries. The visualized paranasal sinuses are clear. MR/MR head/brain wo con IMPRESSION: Possible tiny subacute left occipital infarcts. Electronically signed by: Jalen Oliva MD 03/01/2025 03:26 PM EDT
[2025-03-01 08:43] VITALS: BP 127/45; PULSE 57; RESP 18; TEMP 36.4; O2SAT 100; BMI 19.7
--- NOTE | 2025-03-01 08:53 | ECG_ITS ---
Test Reason : ams Blood Pressure : */* mmHG Vent. Rate : 52 BPM Atrial Rate : 52 BPM P-R Int : 250 ms QRS Dur : 152 ms QT Int : 498 ms P-R-T Axes : 114 -50 -5 degrees QTcB Int : 463 ms Sinus bradycardia with 1st degree A-V block Right bundle branch block Left anterior fascicular block Bifascicular block Septal infarct , age undetermined Abnormal ECG When compared with ECG of 26-Feb-2025 13:27, Premature atrial complexes are no longer Present Septal infarct is now Present T wave inversion now evident in Inferior leads Referred By: Generic ED Physician Electronically Signed By: JAMES MELENDEZ MD
[2025-03-01 09:15] LABS: MANUAL DIFF FLAG NO
[2025-03-01 09:18] LABS: Basophils Absolute Auto 0.1 X10*3/uL (0.0-0.2); Basophils Percent Auto 1.8 % (0-2); Eosinophils Absolute Auto 0.2 X10*3/uL (0.0-0.4); Eosinophils Percent Auto 4.1 % (0-4); Hematocrit 34.7 % (42.0-52.0); Imm Gran Abs Auto 0.01 X10*3/uL (0.00-0.03); Imm Gran Pct Auto 0.2 % (0.0-0.4); Lymphocytes Absolute Auto 1.1 X10*3/uL (1.2-4.9); Lymphocytes Percent Auto 24.2 % (20-40); Mean Corpuscular HGB Conc 34.6 g/dl (31.0-36.0); Mean Corpuscular Hemoglobin 32.6 pg (27.0-33.0); Mean Corpuscular Volume 94.3 fL (80.0-98.0); Mean Platelet Volume 9.9 fL (9.4-12.4); Monocytes Absolute Auto 0.3 X10*3/uL (0.1-1.2); Monocytes Percent Auto 6.8 % (2-11); Neutrophils Absolute Auto 2.8 x10*3/uL (2.0-8.3); Neutrophils Percent Auto 62.9 % (45-73); Platelet Count 121 X10*3/uL (160-400); Red Blood Count 3.68 X10*6/uL (4.60-5.80); Red Cell Distribution Width 12.4 % (11.0-16.0); White Blood Count 4.4 X10*3/uL (4.8-10.8)
[2025-03-01 09:33] LABS: Anion Gap 12 (12-20); Blood Urea Nitrogen 27 mg/dL (9-16); Calcium 9.4 mg/dL (8.4-10.2); Carbon Dioxide 27 mmol/L (22-29); Chloride 107 mmol/L (96-108); Creatinine Clr Calc Pharmacy 52.5; Estimated Glomerular Filt Rate > 60; Glucose Random 104 mg/dL (60-115); Potassium 4.6 mmol/L (3.3-5.1); Sodium 141 mmol/L (135-145)
--- NOTE | 2025-03-01 09:46 | ED_ITS ---
HPI - General Adult General Chief complaint: Altered Mental Status Stated complaint: Feeling off balance, memory issues Time Seen by Provider: 03/01/25 09:00 Source: patient Mode of arrival: ambulatory Limitations: no limitations History of Present Illness ED Provider: DR. Wilhelm HPI narrative: 85-year-old male came in for evaluation of multiple symptoms. This is an 85-year-old male who lives home independently by himself spend winter in [place] and summer in [place] patient just returned from [place] a month ago started to notice getting more frequent episode of unsteadiness for the past month, patient also noticed increased forgetfulness. Patient report a fall a month ago in [place] before his new symptoms developed, patient reported that he was taken to the hospital had a negative trauma workup then. Patient also reported that he started to use minoxidil to regrow his her about a month ago. Related Data Home Medications ?Medication ?Instructions ?Recorded ?Confirmed furosemide 20 mg tablet 20 mg PO DAILY 03/01/25 lisinopril 2.5 mg tablet 2.5 mg PO DAILY 03/01/25 potassium chloride 10 mEq 10 meq PO DAILY 03/01/25 tablet,extended release warfarin 6 mg tablet mg PO 03/01/25 Allergies Allergy/AdvReac Type Severity Reaction Status Date / Time Iodinated Contrast Media Allergy Unknown ANAPHYLAXIS Verified 03/01/25 08:48 [CONTRAST, IV] iodine [IODINE] Allergy Unknown RASH Verified 03/01/25 08:48 Review of Systems 2 Review of Systems: All other systems are reviewed and are negative Constitutional: Reports as per HPI and Reports no additional constitutional complaints Eyes: Reports as per HPI and Reports no additional eye complaints Reports system reviewed and no additional complaints, except as documented Cardiovascular: Reports as per HPI and Reports no additional cardiovascular complaints Respiratory: Reports as per HPI and Reports no additional respiratory complaints Gastrointestinal: Reports as per HPI and Reports no additional gastrointestinal complaints Genitourinary: Reports no additional female genitourinary complaints Musculoskeletal: Reports no additional musculoskeletal complaints Skin/Breast: Reports system reviewed and no additional complaints, except as docu Psychiatric: Reports no additional psychiatric complaints Endocrine: Reports no additional endocrine complaints Hematologic/Lymphatic: Reports no additional hematologic/lymphatic complaints Allergic/Immunologic: Reports no additional allergic/immunologic complaints Reports system reviewed and no additional complaints, except as documented and Reports Abnormal speech present [facility] Social History Social History Advance Directives: No Advance Directives Information Provided: Yes Physical Exam ED Vital Signs: Vital Signs - 24 hr 03/01/25 08:43 03/01/25 11:18 03/01/25 13:31 Temperature 97.6 F 97.8 F 97.6 F Pulse Rate 57 62 51 Respiratory Rate 18 12 12 Blood Pressure 127/45 L 126/62 114/55 L Pulse Oximetry 100 98 100 Oxygen Delivery Method Room Air Room Air Room Air 03/01/25 16:17 Temperature 97.4 F Pulse Rate 51 Respiratory Rate 12 Blood Pressure 129/57 L Pulse Oximetry 100 Oxygen Delivery Method Room Air BMI result Body Mass Index 19.7 Vital signs have been reviewed and appear to be correct. Blood pressure elevated. Heart rate normal. Respiratory rate normal. Temperature normal. Oxygen saturation normal. Appearance: Alert. Oriented X3. No acute distress. Head: Normal external exam. Normocephalic. Atraumatic. No To signs noted. No raccoon eyes noted Eyes: PERRLA. EOMI. Conjunctiva and sclera normal. Eyelids normal. ENT: TM's Normal. Pharynx normal. Uvula midline. Moist mucous membranes. No trismus noted. No drooling noted. No muffled voice noted. Neck: Normal inspection. Neck supple. FROM. No adenopathy. Thyroid Normal. No meningeal signs. No neck mass noted. CVS: Normal heart rate and rhythm. Heart sound normal. No murmurs noted. Pulses normal throughout. Respiratory: No respiratory distress. Painless inspiration. Breath sounds normal. No wheezes/rales/rhonchi noted. Chest nontender. No accessory muscle usage noted or decreased air movement noted. Abdomen: Soft and nontender. Bowel sounds normal in all 4 quadrants. No distention noted. No organomegaly noted. No visible injury noted. Back: No CVA tenderness. Full range of motion noted. Skin: Skin warm and dry. Normal skin color. Normal skin turgor. No rashes/lesions/lacerations noted. Extremities: No lower extremity edema. Extremities exhibit normal range of motion. Extremities nontender. Neuro: Mental status: Normal attention, orientation, memory, and affect. Cranial nerves: Pupils are equal, round and reactive to light, EOMI, visual frost are fall, face is symmetric, facial sensations are normal. Motor examination normal muscle tone, strength to 4 extremities. DTR are +2, planter's are flexor. Sensory exam; normal coordination, no ataxia, gait stable. Cerebellar exam: [id number] and [id number] is normal. Extrapyramidal system: No tremors, no rigidity with normal facial expressions. 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 Patient's symptoms has been going for a month, case signed out to Dr. Luu. awaot for neurology respond Time: 16:30 Reevaluation #2: This patient was signed out to me by the previous emergency physician. The the patient is an 85-year-old male who had presented with complaints of memory problems and difficulty walking. The patient has been in the emergency room 3 days ago for similar complaints. At that time he had had a CT scan of the brain that showed a possible subacute occipital infarct. The patient declined hospitalization at that time but returns complaining of similar complaints. Today he had a noncontrast head CT and also an MRI. The MRI shows what may be too small subacute cerebellar infarcts. I spoke to the patient. He seems to have a very poor memory. He tells me that he lives alone in [place]. His 20 years ago. He has no children. He moved up from [place] a month ago. He does not seem to have much in the way of social supports. He drove himself to the hospital here today. When I spoke to him he seemed to have a lot of word-finding difficulties that I think were probably more memory related than related to an acute stroke. My overall impression is that the patient is doing poorly and that he is possibly having a series of small strokes. He says that he used to be on warfarin but could not tell me why he was on warfarin. It he was taken off the warfarin about a month and a half ago after a fall. He has some kind of history of mitral valve disease but I am not able to make any other determination about why he might has been on warfarin in the past. My overall impression is that the patient is doing very poorly and that he is quite socially isolated and that he is having small strokes. I think he should be hospitalized for evaluation by Neurology and additional stroke workup and possible cognitive testing. Time: 17:55 Medical Decision Making Differential Diagnosis Differential Diagnoses: The differential diagnosis associated with the presentation includes (Acute stroke, early dementia, electrolyte derangement, severe anemia.) Admission/Observation Consideration of admission/observation: Escalation of care including admission/observation considered Lab Data MDM Lab Attestation statement: I reviewed the patient's lab results. 03/01/25 09:08 03/01/25 09:08 Labs: Lab Results 03/01/25 03/01/25 Range/Units 09:08 12:03 WBC 4.4 L (4.8-10.8) X10*3/uL RBC 3.68 L (4.60-5.80) X10*6/uL Hgb 12.0 L (14.0-18.0) g/dl Hct 34.7 L (42.0-52.0) % MCV 94.3 (80.0-98.0) fL MCH 32.6 (27.0-33.0) pg MCHC 34.6 (31.0-36.0) g/dl RDW 12.4 (11.0-16.0) % Plt Count 121 L (160-400) X10*3/uL MPV 9.9 (9.4-12.4) fL Immature Gran % (Auto) 0.2 (0.0-0.4) % Neut % (Auto) 62.9 (45-73) % Lymph % (Auto) 24.2 (20-40) % [place] % (Auto) 6.8 (2-11) % Eos % (Auto) 4.1 H (0-4) % Baso % (Auto) 1.8 (0-2) % Lymph # (Auto) 1.1 L (1.2-4.9) X10*3/uL [place] # (Auto) 0.3 (0.1-1.2) X10*3/uL Eos # (Auto) 0.2 (0.0-0.4) X10*3/uL Baso # (Auto) 0.1 (0.0-0.2) X10*3/uL Abs Immat Gran (auto) 0.01 (0.00-0.03) X10*3/uL Absolute Neuts (auto) 2.8 (2.0-8.3) x10*3/uL Absolute Nucleated RBC 0.000 (0.0-0.012) X10*3/uL Nucleated RBC % (auto) 0.0 (0.0-0.2) /100WBC Sodium 141 (135-145) mmol/L Potassium 4.6 (3.3-5.1) mmol/L Chloride 107 (96-108) mmol/L Carbon Dioxide 27 (22-29) mmol/L Anion Gap 12 (12-20) BUN 27 H (9-16) mg/dL Creatinine 0.87 (0.5-1.4) mg/dL Estim Creat Clear Calc 52.5 Estimated GFR > 60 Random Glucose 104 (60-115) mg/dL Calcium 9.4 (8.4-10.2) mg/dL Urine Color Yellow Urine Appearance Clear Urine pH 6.0 (5.0-9.0) Ur Specific [place] 1.015 (1.005-1.025) Urine Protein Negative (Neg-Trace) mg/dL Urine Glucose (UA) Negative (Negative) mg/dL Urine Ketones Negative (Negative) mg/dL Urine Blood Trace H (Negative) Urine Nitrite Negative (Negative) Ur Leukocyte Esterase Negative (Negative) Urine RBC 0-2 (0-2) /HPF Urine WBC 0-5 (0-5) /HPF Ur Squamous Epith Cells 0-2 (0-2) /HPF Urine Bacteria None Seen (None Seen) Hyaline Casts 0-2 (0-2) /LPF Independent Interpretation I performed an independent interpretation of an: CT Scan (Head: No acute intracranial pathology.) and MRI (Brain: Subacute left occipital infarction) Radiology Impression Discussion of test interpretation with radiology: I have reviewed the radiologist's reading. Discharge Plan Discharge Clinical Impression: Cerebellar stroke, Cognitive impairment Patient Disposition: Admitted As Inpatient
--- OUTSIDE RECORDS SUMMARY | 2025-03-01 10:11 | XMS_ITS | Continuity of Care Document ---
Author Organization [facility] Address [address] [facility] [address] [place] [address] Phone Care Team Providers Care Hip Hop Dance Instructor Name Role Phone Zion Jauregui MD Unavailable [...] Diagnoses Date Provider Providers Copied on Encounter [facility], [address] [facility] [address], [place], [place], [address] [place] [address], tel:[phone] [facility] No Information Mar-3 1-201 0 Shania Donovan. [address] [facility], [place], [address] [place] [address], . tel:[phone] Referring Provider: Zion Montejo, [address] [facility], [place], [address] [place] [address]. tel:[phone] [facility], [address] [facility] [address] , [place], [address] [place] [address], tel:[phone] [facility] No Information Mar-3 0-[address] [facility], [address] [facility], [place], [address] [place] [address], tel:[phone] [facility] No Information Mar-1 8-201 0 Rani Sulema. [address] [facility], [place], [address] [place] [address], . tel:[phone] Referring Provider: Sulema Baumaner, [address], [place], [address] [place] [address]. tel:[phone] [facility], [address] [facility], [place], [address] [place] [address], tel:[phone] [facility] No Information Nathaniel-0 6-201 0 [place] Sulema. [address] [facility], [place], [address] [place] [address], . tel:[phone] Referring Provider: Sulema Saravia, [address] [facility], [place], [address] [place] [address]. tel:[phone] [facility], [address] [facility], [place], [address] [place] [address], tel:[phone] [facility] No Information Dec-0 8-200 9 Rani Sulema. [address], [place], [address] [place] [address], . tel:[phone] Referring Provider: Sulema Saravia, [address], [place], [address]. tel:[phone] [facility], [address] [facility], [place], [place], [id number], tel:[phone] [facility] No Information Dec-0 200 9 Saji Veronica. [address], [id number], . tel:[phone] Referring Provider: Jeremías Petersne, [address], [place], [address]. tel:[phone] [facility], [address], [id number], tel:[phone] [facility] No Information Dec-0 9 Saji Veronica. [address], [id number], [place]. tel:[phone] Referring Provider: Jeremías Petersen, [address], [address]. tel:[phone] Office/Outpt E&M Estab Phyllis RAMIREZ, [address], [facility] [address], [place], [place], [id number], tel:[phone] Phyllis RAMIREZ No Information Dec-0 200 9 No Information Referring Provider: Jeremías Petersen, [address], [address]. tel:[phone] [facility], [address], [place], [place], [id number], tel:[phone] [facility] No Information Dec-[address] [facility]. [address], [place], [address] [place] [address], . tel:[phone] Referring Provider: Jeremías Petersen, [address] [facility], [place], [address] [place] [address]. tel:[phone] [facility], [address] [facility] , [place], [address] [place] [address], tel:[phone] [facility] No Information 9 Saji Veronica. [address] [facility], [place], [address] [place] [address], . tel:[phone] Referring Provider: Jeremías Petersen, [address], [place], [address] [place] [address]. tel:[phone] Offic/outpt E&m Estab Low-mod [facility], [address] [place] [address], [place], [address] [place] [address], tel:[phone] [facility] No Information 9 Raymond Aburto. [address], [place], [address] [place] [address], . tel:[phone] Referring Provider: Lamonte Torres, [address], [place], [address] [place] [address]. tel:[phone] [facility], [address] [facility], [place], [address] [place] [address], tel:[phone] [facility] No Information 9 Raymond Aburto. [address], [place], [address] [place] [address], . tel:[phone] Referring Provider: Lamonte Torres, [address], [place], [address] [place] [address]. tel:[phone] [facility], [address], [place], [address] [place] [address], tel:[phone] [facility] No Information 9 Raymond Aburto. [address] [place], [place] [address]way [facility], [place], [address] [place] [address], . tel:[phone] Referring Provider: Lamonte Torres, [address] [place] [address], [place], [address] [place] [address]. tel:[phone] [facility], [address] [facility], [place], [address] [place] [address], tel:[phone] [facility] No Information 8 Saji Veronica. [address] [place] [address], [address] [place] [address], . tel:[phone] Referring Provider: Jeremías Petersen, [address] [place] [address], [address] [place] [address]. tel:[phone] Offic Cons New/Estab Low Phyllis RAMIREZ, [address], [facility] [address], [place], [place], [id number], tel:[phone] Phyllis RAMIREZ No Information 8 No Information Referring Provider: Jeremías Petersen, [address] [place] [address], [address] [place] [address]. tel:[phone] [facility], [address] [facility], [place], [address] [place] [address], tel:[phone] [facility] No Information 8 Roe Cotto. [address], [place], [address] [place] [address], . tel:[phone] Referring Provider: [place], [address], [place], [address] [place] [address]. tel:[phone] [facility], [address] [place], [place], [id number], tel:[phone] [facility] No Information 8 Saji Veronica. [address], [place], [place], [id number], . tel:[phone] Referring Provider: Jeremías Petersen, [address], [address] [place] [address]. tel:[phone] [facility], [address] [facility], [place], [place], [id number], tel:[phone] [facility] No Information 8 [facility]. [address], [address] [place] [address], . tel:[phone] Referring Provider: Jeremías Petersen, [address], [address] [place] [address]. tel:[phone] [facility], [address], [place], [place], [id number], tel:[phone] [facility] No Information 8 Keagan Oneal. [address], [address] [place] [address], . tel:[phone] Referring Provider: Jeremías Petersen, [address], [address] [place] [address]. tel:[phone] [facility], [address], [place], [place], [id number], tel:[phone] [facility] No Information 8 Saji Veronica. [address], [id number], . tel:[phone] Referring Provider: Jeremías Petersen, [address], [address]. tel:[phone] [facility], [address], [place], [place], [id number], tel:[phone] [facility] No Information 8200 8 Saji Cochran [address], [id number], . tel:[phone] Referring Provider: Jeremías Petersen, [address], [address]. tel:[phone] Family History Family Member Type Diagnosis Age At Onset Father Problem (finding) chronic obstructive jane g disease 82 Mother Problem (finding) Peritonits/ Diverticuli tis 77 Payers Payer name Insurance type Covered constitution party ID Sal espinal(s) Medicare [id number] [employer] Benefit Plan [id number] Social History Type Description Quantity Date Captured [...]
[2025-03-01 11:18] VITALS: BP 126/62; PULSE 62; RESP 12; TEMP 36.6; O2SAT 98
--- NOTE | 2025-03-01 11:33 | MHC.EDTECH ---
took over assignment at 1100, pt was helped changed into hospital gown, vitals stable and documented, urinal and call correa within reach
--- NOTE | 2025-03-01 12:10 | MHC.EDTECH ---
pt ambulated to and from bathroom with a steady gait and a standby assist. clean catch urine sample collected and sent to lab. pt given recliner chair for comfort.
[2025-03-01 12:14] LABS: Appearance Urine Clear; Color Urine Yellow; Glucose Urine UA Negative (Negative); Leukocyte Esterase Urine Negative (Negative); Nitrite Urine Negative (Negative); Specific Gravity - Urine 1.015 (1.005-1.025); UMIC TRIGGER UACC YES; Urine Blood Trace (Negative); Urine Ketones Negative (Negative); Urine Protein Negative (Neg-Trace)
[2025-03-01 12:19] LABS: Bacteria Urine None Seen (None Seen); Hyaline Casts Urine 0-2 /LPF (0-2); RBC Urine 0-2 /HPF (0-2); Squamous Epithelial Cell Urine 0-2 /HPF (0-2); WBC Urine 0-5 /HPF (0-5)
[2025-03-01 13:31] VITALS: BP 114/55; PULSE 51; RESP 12; TEMP 36.4; O2SAT 100
--- NOTE | 2025-03-01 14:08 | PC.NURSE ---
En route to MRI with Dede Duong (product technician).
[2025-03-01 16:17] VITALS: BP 129/57; PULSE 51; RESP 12; TEMP 36.3; O2SAT 100
--- NOTE | 2025-03-01 17:49 | P.HPHOSP_ITS ---
History of Present Illness Date of Service: 03/01/25 Chief Complaint: Unsteadiness, forgetfullness An 85 years old male with PMH of Sarcoid, Aortic stenosis, Mitral stenosis post TMVR, arthritis among others presenting with near fall and unsteadiness found to have new strokes. The patient lives alone and presented to the ED more than once over the last few days with near falls and feeling unsteady. No chest pain, palpitations, SOB, nausea, vomiting, diarrhea or urinary symptoms. He doesnt feel safe walking around but denies any LOC or focal weakness. He had hx of TMvR and was on Warfarin until few months ago when he stopped taking them but can not remember why (from his prescriptions he is supposed to be on warfarin until March). In ED found to have abnormal brain images with MRI showing old and subacute cerebellar strokes. Admitted for further work up and management. Review of Systems 2 Review of Systems: No fever, chills but has generalized weakness mainly in lower extrmeities No chest pain, palpitation No shortness of breath or coughing No abdominal pain, nausea or vomiting No urinary symptoms No any rash or wounds PMFSH Medical History Mitral stenosis Surgical History S/P transcatheter mitral valve replacement (TMVR) Social History Household Members: None Housing: House Do you presently have visiting nurse or other home services: No Unable to assess alcohol history related to: Unknown Alcohol intake: unknown Patient Tobacco Use Status: Never used Tobacco Smoked in Last 30 Days: No Use of substances other than those prescribed or required for medical reasons: Unknown Currently Displaying Signs/Symptoms of Drug Intoxication Withdrawal: No Have you been hit, kicked, punched, or otherwise hurt by someone within the past year? If so, by whom?: No Do you feel safe in your current relationship?: No Current Relationship Is there a partner from a previous relationship who is making you feel unsafe now?: No Are you made to feel afraid or neglected: No Advance Directives: No Advance Directives Information Provided: Yes Do you have a plan to hurt others: No Plan Recently lost weight without trying: No Eating poorly because of decreased appetite: No Nutrition Risks: No Nutritional Risk Meds Allergies Allergy/AdvReac Type Severity Reaction Status Date / Time Iodinated Contrast Media Allergy Unknown ANAPHYLAXIS Verified 03/01/25 08:48 [CONTRAST, IV] iodine [IODINE] Allergy Unknown RASH Verified 03/01/25 08:48 Active Medications: Current Medications Acetaminophen (Acetaminophen 325 Mg Tablet) 650 mg PO Q6H PRN PRN Reason: Pain, Mild 1-3,fever,headache Aspirin (Aspirin Enteric Coated 81 Mg Tablet.Dr) 81 mg PO DAILY PARAG Calcium Carbonate (Calcium Carbonate 750 Mg Tab.Chew) 750 mg PO Q4H PRN PRN Reason: Heartburn Enoxaparin Sodium (Enoxaparin Sodium 40 Mg/0.4 Ml Syringe) 60 mg SUBCUT Q12H PARAG Magnesium Hydroxide (Milk Of Magnesia 30 Ml Oral.Susp) 30 ml PO DAILY PRN PRN Reason: Constipation Melatonin (Melatonin 3 Mg Tablet) 6 mg PO BEDTIME PRN PRN Reason: Insomnia Ondansetron HCl (Ondansetron Hcl 4 Mg/2 Ml Vial) 4 mg IVPUSH Q8H PRN PRN Reason: Nausea and Vomiting Sodium Chloride (0.9 % Sodium Chloride Flush 3 Ml Syringe) 3 ml IVFLUSH QSHIFT [facility] Home Medications ?Medication ?Instructions ?Recorded ?Confirmed ?Last Taken ?Type aspirin 81 mg tablet,delayed 81 mg PO DAILY 03/01/25 03/01/25 Unknown History release cholecalciferol (vitamin D3) 25 25 mcg PO DAILY 03/01/25 03/01/25 Unknown History mcg (1,000 unit) tablet (Vitamin D3) coQ10 (ubiquinol) 200 mg capsule 200 mg PO DAILY 03/01/25 03/01/25 Unknown History furosemide 20 mg tablet 20 mg PO DAILY 03/01/25 03/01/25 Unknown History glucosam 750 mg-chondroi 100 1 tab PO DAILY 03/01/25 03/01/25 Unknown History mg-hyalur 1.65 mg-CF borate 108 mg tablet (Move [facility]) lisinopril 2.5 mg tablet 2.5 mg PO DAILY 03/01/25 03/01/25 Unknown History multivitamin with minerals-folic 1 tab PO DAILY 03/01/25 03/01/25 Unknown History acid 400 mcg-lycopene 370 mcg tablet (One-A-Day Men's 50 Plus) potassium chloride 10 mEq 10 meq PO DAILY 03/01/25 03/01/25 Unknown History tablet,extended release vitamin B complex 1 tab PO DAILY 03/01/25 03/01/25 Unknown History Physical Exam 2 Vital Signs and Narrative: Vital Signs: Last Vital Signs Temp 97.4 F 03/01/25 16:17 Pulse 51 03/01/25 16:17 Resp 12 03/01/25 16:17 BP 129/57 L 03/01/25 16:17 Pulse Ox 100 03/01/25 16:17 O2 Del Method Room Air 03/01/25 16:17 BMI result Body Mass Index 19.7 Const: Other: Constitutional : Awake, interactive, not in distress Neck : Normal inspection, Supple Cardiovascular : RRR, no JVP, no lower extremity edema Respiratory : good bilateral air entry, no crackles, wheezes or rhonchi Gastrointestinal: soft, lax, Normal bowel sounds, Non tender Skin : Warm, Dry Neurological : Alert & oriented x3, No focal deficit , CN 2-12 within normal Results Labs 03/02/25 07:01 03/02/25 07:01 Labs: Laboratory Results - last 24 hr 03/01/25 03/01/25 09:08 12:03 MCV 94.3 MCH 32.6 MCHC 34.6 RDW 12.4 Plt Count 121 L MPV 9.9 Immature Gran % (Auto) 0.2 Neut % (Auto) 62.9 Lymph % (Auto) 24.2 [place] % (Auto) 6.8 Eos % (Auto) 4.1 H Baso % (Auto) 1.8 Lymph # (Auto) 1.1 L [place] # (Auto) 0.3 Eos # (Auto) 0.2 Baso # (Auto) 0.1 Abs Immat Gran (auto) 0.01 Absolute Neuts (auto) 2.8 Absolute Nucleated RBC 0.000 Nucleated RBC % (auto) 0.0 Anion Gap 12 Estim Creat Clear Calc 52.5 Estimated GFR > 60 Random Glucose 104 Calcium 9.4 Urine Color Yellow Urine Appearance Clear Urine pH 6.0 Ur Specific Romance 1.015 Urine Protein Negative Urine Glucose (UA) Negative Urine Ketones Negative Urine Blood Trace H Urine Nitrite Negative Ur Leukocyte Esterase Negative Urine RBC 0-2 Urine WBC 0-5 Ur Squamous Epith Cells 0-2 Urine Bacteria None Seen Hyaline Casts 0-2 Imaging Radiologist's Impressions: Impressions Head CT 03/01/25 09:43 IMPRESSION: No acute intracranial hemorrhage. Small vessel occlusive disease. Global cerebral atrophy. Prior vascular insult posterior right MCA territory. Atherosclerosis disease, intracranial. Overall stable appearance of the brain. Electronically signed by: Higinio Brantley MD 03/01/2025 10:15 AM EDT RP Brain MRI 03/01/25 14:30 IMPRESSION: Possible tiny subacute left occipital infarcts. Electronically signed by: Jalen Oliva MD 03/01/2025 03:26 PM EDT RP Assessment and Plan (1) S/P transcatheter mitral valve replacement (TMVR): Status: Acute (2) Cognitive impairment: Status: Acute (3) Cerebellar stroke: Status: Acute (4) Unsteadiness: Status: Acute Plan An 85 years old male with PMH of Sarcoid, Aortic stenosis, Mitral stenosis post TMVR, arthritis among others presenting with near fall and unsteadiness found to have new strokes. Acute\subacute stroke Shown on MRI as reported check Carotic US check Echo start ASA restart bridging Warfarin and Lovenox Cardiology and Neurology consults PT\OT eval HTN Lisinopril and lasix DVT PPx Lovenox The patient will likely need 2 overnight hospital stay bridging warfarin and pending cardiology and neurology consults Quality Stroke Does the patient have a stroke diagnosis?: No VTE Prior VTE?: No VTE Risk Level:: Medical - moderate - high VTE Device Contraindication: Treatment Not Indicated VTE Drug Contraindication: N/A - Med Ordered
[2025-03-01] MEDS: Aspirin 81 MG TAB.CHEW 324 MG PO (18:33)
[2025-03-01 19:00] LABS: INTERNATIONAL NORM RATIO 1.1 (0.9-1.1); Prothrombin Time 12.2 SEC (10.9-12.4)
[2025-03-01] MEDS: Enoxaparin Sodium 40 MG/0.4 ML SYRINGE 60 MG SUBCUT (19:56)
--- NOTE | 2025-03-01 21:48 | PHA.MEDREC ---
Pharmacy Consult ? Medication Reconciliation Pharmacy has completed the medication reconciliation. Pt states he no longer takes coumadin, provider made aware
[2025-03-01 23:47] VITALS: BP 120/59; PULSE 58; RESP 20; TEMP 36.6; O2SAT 98
[2025-03-02] VITALS (7 sets, daily range): BP systolic 113–137; BP diastolic 57–65; PULSE 52–57; RESP 16–20; TEMP 36.4–36.8; O2SAT 97–100; BMI 19.7
[2025-03-02] MEDS: Enoxaparin Sodium 40 MG/0.4 ML SYRINGE 60 MG SUBCUT (06:36)
[2025-03-02 07:07] LABS: MANUAL DIFF FLAG NO
[2025-03-02 07:16] LABS: INTERNATIONAL NORM RATIO 1.1 (0.9-1.1); Prothrombin Time 12.5 SEC (10.9-12.4)
[2025-03-02 07:20] LABS: Basophils Absolute Auto 0.1 X10*3/uL (0.0-0.2); Basophils Percent Auto 1.6 % (0-2); Eosinophils Absolute Auto 0.2 X10*3/uL (0.0-0.4); Eosinophils Percent Auto 5.5 % (0-4); Hematocrit 34.4 % (42.0-52.0); Hemoglobin 11.8 g/dl (14.0-18.0); Imm Gran Abs Auto 0.01 X10*3/uL (0.00-0.03); Imm Gran Pct Auto 0.3 % (0.0-0.4); Lymphocytes Absolute Auto 1.1 X10*3/uL (1.2-4.9); Lymphocytes Percent Auto 27.4 % (20-40); Mean Corpuscular HGB Conc 34.3 g/dl (31.0-36.0); Mean Corpuscular Hemoglobin 32.3 pg (27.0-33.0); Mean Corpuscular Volume 94.2 fL (80.0-98.0); Mean Platelet Volume 9.8 fL (9.4-12.4); Monocytes Absolute Auto 0.3 X10*3/uL (0.1-1.2); Monocytes Percent Auto 7.8 % (2-11); Neutrophils Absolute Auto 2.2 x10*3/uL (2.0-8.3); Neutrophils Percent Auto 57.4 % (45-73); Platelet Count 125 X10*3/uL (160-400); Red Blood Count 3.65 X10*6/uL (4.60-5.80); Red Cell Distribution Width 12.3 % (11.0-16.0); White Blood Count 3.8 X10*3/uL (4.8-10.8)
[2025-03-02 07:35] LABS: Alanine Aminotransferase 9 U/L (0-40); Alkaline Phosphatase 48 U/L (39-117); Anion Gap 9 (12-20); Aspartate Amino Transferase 24 U/L (5-37); Bilirubin Total 1.5 mg/dL (0.0-1.0); Blood Urea Nitrogen 29 mg/dL (9-16); Calcium 8.9 mg/dL (8.4-10.2); Carbon Dioxide 27 mmol/L (22-29); Chloride 108 mmol/L (96-108); Creatinine Clr Calc Pharmacy 48.6; Estimated Glomerular Filt Rate > 60; Glucose Random 99 mg/dL (60-115); Potassium 4.1 mmol/L (3.3-5.1); Sodium 140 mmol/L (135-145); Total Protein 6.3 g/dL (6.5-8.0)
[2025-03-02] MEDS: 0.9 % Sodium Chloride Flush 3 ML SYRINGE IVFLUSH ×3 (08:34→20:07)
[2025-03-02] MEDS: Aspirin Enteric Coated 81 MG TABLET.DR PO (08:34)
--- NOTE | 2025-03-02 10:44 | PM.CNCAR ---
History of Present Illness History of Present Illness Date of Service: 03/02/25 Requesting physician: Ihsan Nicholas Consult reason: other (Stroke) Chief complaint: Feeling off balance, memory issues Narrative: I was consulted to see Ahmet in cardiology consultation today for prior cardiovascular issues and hospital admission with new cerebellar stroke. Patient has a poor historian and history was obtained from [facility] records as well as current records. Patient with prior transcatheter mitral valve replacement as he was considered high risk for open heart surgery and this was done as a part of a trial and was done in [place] for significant mitral regurgitation with underlying mitral annular calcification. Patient has no obvious history of atrial fibrillation but was on warfarin therapy post transcatheter mitral valve replacement and subsequently this was decided to be stopped last year after seeing local law office receptionist. However he also follows with a cardiology group in [place], whose records currently not available. Patient subsequently while in [place] had it seems like evaluation of the valve and felt like that was strut fracture and thrombosis and was started on warfarin again. And he was on warfarin up to 5-6 weeks ago and was stopped, patient says that would was discussed with the cardiology group. I spoke with Dr. Mendoza at [facility] and he said that decision was not made through his office and he was not aware of it. However patient came with memory loss and progressive unsteadiness and subsequently was noted multiple chronic as well with a subacute infarct including in the cerebellum as well as lacunar infarcts. This most likely are embolic. There again are no symptoms or signs suggestive of atrial fibrillation. Patient addition has prior history of possible sarcoidosis [id number] aortic stenosis arthritis. Cardiology consult was sought for further management. Overnight telemetry has shown no atrial fibrillation shows sinus rhythm. Review of Systems Review of Systems: Yes Unobtainable due to mental status [facility] Past Medical History Medical History Mitral stenosis Surgical History Surgical History S/P transcatheter mitral valve replacement (TMVR) Social History Social History Household Members: None Housing: House Do you presently have visiting nurse or other home services: No Unable to assess alcohol history related to: Unknown Alcohol intake: unknown Patient Tobacco Use Status: Never used Tobacco Smoked in Last 30 Days: No Use of substances other than those prescribed or required for medical reasons: Unknown Currently Displaying Signs/Symptoms of Drug Intoxication Withdrawal: No Have you been hit, kicked, punched, or otherwise hurt by someone within the past year? If so, by whom?: No Do you feel safe in your current relationship?: No Current Relationship Is there a partner from a previous relationship who is making you feel unsafe now?: No Are you made to feel afraid or neglected: No Advance Directives: No Advance Directives Information Provided: Yes Do you have a plan to hurt others: No Plan Recently lost weight without trying: No Eating poorly because of decreased appetite: No Nutrition Risks: No Nutritional Risk Meds Allergies Allergy/AdvReac Type Severity Reaction Status Date / Time Iodinated Contrast Media Allergy Unknown ANAPHYLAXIS Verified 03/01/25 08:48 [CONTRAST, IV] iodine [IODINE] Allergy Unknown RASH Verified 03/01/25 08:48 Active Medications: Current Medications Acetaminophen (Acetaminophen 325 Mg Tablet) 650 mg PO Q6H PRN PRN Reason: Pain, Mild 1-3,fever,headache Aspirin (Aspirin Enteric Coated 81 Mg Tablet.) 81 mg PO DAILY [facility] Last Admin: 03/02/25 08:34 Dose: 81 mg Calcium Carbonate (Calcium Carbonate 750 Mg Tab.Chew) 750 mg PO Q4H PRN PRN Reason: Heartburn Enoxaparin Sodium (Enoxaparin Sodium 40 Mg/0.4 Ml Syringe) 60 mg SUBCUT Q12H [facility] Last Admin: 03/02/25 06:36 Dose: 60 mg Magnesium Hydroxide (Milk Of Magnesia 30 Ml Oral.Susp) 30 ml PO DAILY PRN PRN Reason: Constipation Melatonin (Melatonin 3 Mg Tablet) 6 mg PO BEDTIME PRN PRN Reason: Insomnia Ondansetron HCl (Ondansetron Hcl 4 Mg/2 Ml Vial) 4 mg IVPUSH Q8H PRN PRN Reason: Nausea and Vomiting Sodium Chloride (0.9 % Sodium Chloride Flush 3 Ml Syringe) 3 ml IVFLUSH QSHIFT [facility] Last Admin: 03/02/25 08:34 Dose: 3 ml Warfarin Sodium (Warfarin Sodium 10 Mg Tablet) 10 mg PO DAILY@1800 [facility] Home Medications ?Medication ?Instructions ?Recorded ?Confirmed ?Last Taken ?Type aspirin 81 mg tablet,delayed 81 mg PO DAILY 03/01/25 03/01/25 Unknown History release cholecalciferol (vitamin D3) 25 25 mcg PO DAILY 03/01/25 03/01/25 Unknown History mcg (1,000 unit) tablet (Vitamin D3) coQ10 (ubiquinol) 200 mg capsule 200 mg PO DAILY 03/01/25 03/01/25 Unknown History furosemide 20 mg tablet 20 mg PO DAILY 03/01/25 03/01/25 Unknown History glucosam 750 mg-chondroi 100 1 tab PO DAILY 03/01/25 03/01/25 Unknown History mg-hyalur 1.65 mg-CF borate 108 mg tablet ([facility]) lisinopril 2.5 mg tablet 2.5 mg PO DAILY 03/01/25 03/01/25 Unknown History multivitamin with minerals-folic 1 tab PO DAILY 03/01/25 03/01/25 Unknown History acid 400 mcg-lycopene 370 mcg tablet (One-A-Day Men's 50 Plus) potassium chloride 10 mEq 10 meq PO DAILY 03/01/25 03/01/25 Unknown History tablet,extended release vitamin B complex 1 tab PO DAILY 03/01/25 03/01/25 Unknown History Physical Exam Vital Signs: Vital Signs: Last Vital Signs Temp 98.2 F 03/02/25 07:36 Pulse 53 03/02/25 08:49 Resp 20 03/02/25 07:36 BP 124/58 L 03/02/25 08:49 Pulse Ox 100 03/02/25 08:49 O2 Del Method Room Air 03/02/25 07:36 BMI result Body Mass Index 19.7 Const: General: cooperative, comfortable, alert and awake Nutritional Appearance: thin and other (Frail appearing elderly man) HEENT: Head: Yes normocephalic Neck: Neck: Yes trachea midline, Yes supple and Yes no JVD Resp: Effort & Inspection: decreased respiratory effort Auscultation: clear to auscultation bilaterally Cardio: Jugular venous distension: no JVD Rate: bradycardic Rhythm: regular rhythm Heart sounds: S1 normal heart sound present, S2 normal heart sound present, no click, no gallops and Murmur heart sound present systolic mid, decrescendo and crescendo GI: Auscultation: normal bowel sounds Skin: General skin exam: no rashes or lesions noted and ecchymosis Neuro: General: moves all extremities Extrem: General: Yes no clubbing, cyanosis or edema Psych: Appearance: grossly normal Objective Labs and Meds 03/02/25 07:01 03/02/25 07:01 Lab results: Laboratory Results - last 24 hr 03/01/25 03/01/25 03/02/25 12:03 18:42 07:01 WBC 3.8 L RBC 3.65 L Hgb 11.8 L Hct 34.4 L MCV 94.2 MCH 32.3 MCHC 34.3 RDW 12.3 Plt Count 125 L MPV 9.8 Immature Gran % (Auto) 0.3 Neut % (Auto) 57.4 Lymph % (Auto) 27.4 [place] % (Auto) 7.8 Eos % (Auto) 5.5 H Baso % (Auto) 1.6 Lymph # (Auto) 1.1 L [place] # (Auto) 0.3 Eos # (Auto) 0.2 Baso # (Auto) 0.1 Abs Immat Gran (auto) 0.01 Absolute Neuts (auto) 2.2 Absolute Nucleated RBC 0.000 Nucleated RBC % (auto) 0.0 PT 12.2 12.5 H INR 1.1 1.1 Sodium 140 Potassium 4.1 Chloride 108 Carbon Dioxide 27 Anion Gap 9 L BUN 29 H Creatinine 0.94 Estim Creat Clear Calc 48.6 Estimated GFR > 60 Random Glucose 99 Calcium 8.9 Total Bilirubin 1.5 H AST 24 ALT 9 Alkaline Phosphatase 48 Total Protein 6.3 L Albumin 4.0 Urine Color Yellow Urine Appearance Clear Urine pH 6.0 Ur Specific [place] 1.015 Urine Protein Negative Urine Glucose (UA) Negative Urine Ketones Negative Urine Blood Trace H Urine Nitrite Negative Ur Leukocyte Esterase Negative Urine RBC 0-2 Urine WBC 0-5 Ur Squamous Epith Cells 0-2 Urine Bacteria None Seen Hyaline Casts 0-2 EKG shows normal sinus rhythm with bifascicular block Imaging Radiologist's impression: Impressions Brain MRI 03/01/25 14:30 IMPRESSION: Possible tiny subacute left occipital infarcts. Electronically signed by: Jalen Oliva MD 03/01/2025 03:26 PM EDT RP Assessment and Plan (1) Cerebellar stroke: Status: Acute Patient with reported cerebellar stroke as well as having multiple other subacute infarcts in the occipital lobe. These are suggestive of embolic phenomenon. 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 At this point time I discussed with his law office receptionist Dr. Mendoza and also discussed with hospitalist team. Best to restart oral anticoagulation therapy. Patient can be started on Eliquis, given his age and weight on 2.5 mg b.i.d.. Discussed with him about need for the same. Given the possibility of underlying atrial fibrillation I think he would benefit from placement of implantable loop recorder. This was discussed with his primary law office receptionist as well and he is in agreement. Discussed with the patient about risks benefits. He understands. Will also need to discuss with his family. Once implantable loop recorder has been place, patient can be discharged from cardiac perspective. Procedures Date of Service Date of Service: 03/02/25
--- NOTE | 2025-03-02 14:19 | P.BOP_ITS ---
Brief Operative Note Date of Service: 03/02/25 Pre-op diagnosis: CVA Post-op diagnosis: same Procedure: Placement of implantable loop recorder Implants: After obtaining informed consent patient was in the minor surgery suite. Patient was laid supine on the operating table. Patient is precordial area was then prepped and draped in a sterile fashion. Patient was then given 2% lidocaine with epinephrine intradermally and subcutaneously in the 4th intercostal space. A [employer] implantable loop recorder with serial number([id number]) was then implanted in the subcutaneous space using modified Seldinger technique. Measured R-waves were at 0.51 mV with good P-waves identified. The wound was then closed with Steri-Strips. Pressure dressing was then applied. Surgeon: Elkin Hughes MD Anesthesia: local Was an Telemarketer Supervisor used for this Procedure?: No Estimated blood loss (mL): 2 Pathology: none sent Condition: stable Disposition: floor Complications (if any): None
--- NOTE | 2025-03-02 14:21 | P.DS_ITS ---
DS: Providers Provider Date of Service: 03/02/25 Date of admission: 03/01/25 17:50 Date of discharge: 03/02/25 Primary care physician: Liliya Holden MD Consults: 03/01/25 17:38 Consult to Neurology Routine Consulting Provider: [facility] Reason for consultation: recurrent strokes, Hx of Warfarin use. 03/01/25 17:47 Consult to Cardiology Routine Consulting Provider: [facility] Reason for consultation: Multiple stroke with Hx of TMVR DS: Diagnosis Discharge Diagnosis (1) Cerebellar stroke: Status: Acute (2) Unsteadiness: Status: Acute (3) S/P transcatheter mitral valve replacement (TMVR): Status: Acute DS: Summary Hospital Course Hospital Course: Admission note HPI An 85 years old male with PMH of Sarcoid, Aortic stenosis, Mitral stenosis post TMVR, arthritis among others presenting with near fall and unsteadiness found to have new strokes. The patient lives alone and presented to the ED more than once over the last few days with near falls and feeling unsteady. No chest pain, palpitations, SOB, nausea, vomiting, diarrhea or urinary symptoms. He doesnt feel safe walking around but denies any LOC or focal weakness. He had hx of TMvR and was on Warfarin until few months ago when he stopped taking them but can not remember why (from his prescriptions he is supposed to be on warfarin until March). In ED found to have abnormal brain images with MRI showing old and subacute cerebellar strokes. Admitted for further work up and management. Hospital course The patient was admitted for evaluation of worsening unsteadiness. brain images including MRI were concerning for possible subacute left occipital infarct along with old right occipital infarct and other small left cerebellar foci that might represent subacte embolic events. carotid US negative for stenosis. He used to take Warfarin that was stopped weeks ago. the concern if he has PAF and showring clots. Discussed with cardiology who recommended starting Eliquis age\weight adjusted dose of 2.5 mg bid. To follow with cardiology as outpatient. He was seen by PT who recommended home PT for home safety. A Loop recorder was placed by cardiology to monitor his heart rhythm as outpatient. Discharge plan Physical therapy at home Start Eliquis 2.5 mg two times a day Loop recorder placed to monitor heart rhythm Follow with cardiology as outpatient The patient made quicker than expected recovery and will not need 2 overnight hospital stay. Time Attestation Discharge Coordination Time (in mins): 38 Quality: Safe Use of Opioids Does Pt have an Active Cancer Diagnosis on the Problem List?: No Quality: Stroke Does the patient have a stroke diagnosis?: No Physical Exam Vital Signs: Vital Signs: Last Vital Signs Temp 98.0 F 03/02/25 10:54 Pulse 57 03/02/25 10:54 Resp 16 03/02/25 10:54 BP 137/62 03/02/25 10:54 Pulse Ox 99 03/02/25 10:54 O2 Del Method Room Air 03/02/25 10:54 BMI result Body Mass Index 19.7 Const: Other: Constitutional : Awake, interactive, not in distress Neck : Normal inspection, Supple Cardiovascular : RRR, no JVP, no lower extremity edema Respiratory : good bilateral air entry, no crackles, wheezes or rhonchi Gastrointestinal: soft, lax, Normal bowel sounds, Non tender Skin : Warm, Dry Neurological : Alert & oriented x3, No focal deficit , CN 2-12 within normal DS: Data Data Completed and Pending Labs on day of discharge: Laboratory Results - last 24 hr 03/01/25 03/02/25 18:42 07:01 WBC 3.8 L RBC 3.65 L Hgb 11.8 L Hct 34.4 L MCV 94.2 MCH 32.3 MCHC 34.3 RDW 12.3 Plt Count 125 L MPV 9.8 Immature Gran % (Auto) 0.3 Neut % (Auto) 57.4 Lymph % (Auto) 27.4 [place] % (Auto) 7.8 Eos % (Auto) 5.5 H Baso % (Auto) 1.6 Lymph # (Auto) 1.1 L [place] # (Auto) 0.3 Eos # (Auto) 0.2 Baso # (Auto) 0.1 Abs Immat Gran (auto) 0.01 Absolute Neuts (auto) 2.2 Absolute Nucleated RBC 0.000 Nucleated RBC % (auto) 0.0 PT 12.2 12.5 H INR 1.1 1.1 Sodium 140 Potassium 4.1 Chloride 108 Carbon Dioxide 27 Anion Gap 9 L BUN 29 H Creatinine 0.94 Estim Creat Clear Calc 48.6 Estimated GFR > 60 Random Glucose 99 Calcium 8.9 Total Bilirubin 1.5 H AST 24 ALT 9 Alkaline Phosphatase 48 Total Protein 6.3 L Albumin 4.0 Imaging MRI - head: Radiologist's impression: ITS Impressions Head CT 03/01/25 09:43 IMPRESSION: No acute intracranial hemorrhage. Small vessel occlusive disease. Global cerebral atrophy. Prior vascular insult posterior right MCA territory. Atherosclerosis disease, intracranial. Overall stable appearance of the brain. Electronically signed by: Higinio Brantley MD 03/01/2025 10:15 AM EDT RP Brain MRI 03/01/25 14:30 IMPRESSION: Possible tiny subacute left occipital infarcts. Electronically signed by: Jalen Oliva MD 03/01/2025 03:26 PM EDT RP Discharge Plan Discharge Anticipated Discharge Date/Time: 03/02/25 14:12 Patient Disposition: Home Health Service Discharge Diagnosis: Cerebellar stroke Unsteadiness Referrals: [facility] [Outside] - 1 Week Liliya Holden MD [Primary Care Provider] - 1 Week Discharge Medications: New Eliquis 2.5 mg Tablet 2.5 mg PO BID Qty: 180 0RF Continued potassium chloride 10 mEq tablet extended release 10 meq PO DAILY furosemide 20 mg tablet 20 mg PO DAILY lisinopril 2.5 mg tablet 2.5 mg PO DAILY aspirin 81 mg Tablet,Delayed Release (Dr/Ec) 81 mg PO DAILY vitamin B complex Tablet 1 tab PO DAILY cholecalciferol (vitamin D3) [Vitamin D3] 25 mcg (1,000 unit) Tablet 25 mcg PO DAILY [facility] 750 mg-100 mg- 1.65 mg-108 mg Tablet 1 tab PO DAILY One-A-Day Men's 50 Plus 400-370 mcg Tablet 1 tab PO DAILY coQ10 (ubiquinol) 200 mg Capsule 200 mg PO DAILY Discharge Orders: Discharge Order (Routine); Ordered 03/02/25 Ordered By: Ihsan Nicholas Diet: Advance to usual diet Activity on Discharge: As tolerated Stand Alone Forms: Patient Portal Discharge page Print Language: Micronesian Care Plan Goals: Physical therapy at home Start Eliquis 2.5 mg two times a day Loop recorder placed to monitor heart rhythm Follow with cardiology as outpatient Health Concerns: Unsteadiness Stroke Plan of Treatment: Eliquis Assessment: as above
--- NOTE | 2025-03-02 14:55 | W.MHC.F2F ---
Service Date Service Date: 03/02/25 Encounter Date of encounter: 03/02/25 Reasons for Services Signs and symptoms assessed: unsteadiness Reason for physical therapy: home safety and mobility and therapeutic exercises Homebound: Leaving the home is medically contraindicated at this time without the asist of a device and/or another person due th the listed conditions above and below. Reason homebound: unsteady gait / fall risk Certification: Based on the above findings, I certify that this patient is confined to the home and needs intermittent halfway care, physical therapy and/or speech therapy, or continues to need occupational therapy. The patient is under my care, and I have initiated the establishment of the plan of care. The patient will be followed by a physician who will periodically review the plan of care. Time Spent With Patient Time: Total time managing care of this patient today ____ minutes.
--- NOTE | 2025-03-02 15:45 | MHC.CM.PN ---
Addendum entered by Vanesa Mclaughlin RN 03/02/25 16:24: [facility] UNABLE TO DO HOME SAFETY EVAL UNTIL NEXT WEEK, [facility] REFERRAL EXPANDED AND PT WILL LIKELY DC IN AM ONCE SERVICES SECURED. Original Note: IMM 03/02/25 DELIVERED TO BEDSIDE, PT W/ACUTE INFARCTS, OT RECOMMENDING HOME SERVICES AND PT RECOMMENDING HOME SAFETY EVAL, PT WAS STEADY ON FEET WHILE AMBULATING AND DID NOT ASSISTANCE W/TRANSFERS. PT REPORTS HE LIVES IN [place] 6MOS AND THEN HERE FOR 6MOS OUT OF THE YEAR, PT DENIES USE OF DME/HOME SERVICES AND GOAL IS TO DC HOME, [facility] WILL PROVIDE ABOVE SERVICES, PT WOULD LIKE TO SELF TRANSPORT HE DROVE HIS CAR TO [facility]. DID OFFER ALTERNATE TRANSPORT HOME FOR PT HOWEVER PT HAS DECLINED. [facility] TO FILL NEW ELIQUIS PERSCRIPTION AND DELIVER TO BEDSIDE PRIOR TOO DC TODAY.
--- NOTE | 2025-03-02 17:37 | P.CNNE_ITS ---
History of Present Illness Data of Consult Service Date: 03/02/25 Primary Care Provider: Liliya Holden MD [facility] Reason for consult: Balance problem This is an 85 years old male with h/o Sarcoid, Aortic stenosis, Mitral stenosis post TMVR, presenting with near fall and unsteadiness. Sx have resolved and is back to baseline. The patient lives alone and presented to the ED more than once over the last few days with near falls and feeling unsteady. No chest pain, palpitations, SOB, nausea, vomiting, diarrhea or urinary symptoms. He doesnt feel safe walking around but denies any LOC or focal weakness. Tripped and fell on a curb 1 month ago and hit his face. He had hx of TMvR and was on Warfarin until few months ago when he stopped taking them but can not remember why (from his prescriptions he is supposed to be on warfarin until March). Carotid doppler negative for significant stenosis. MRI reviewed. There is NO new stroke. Cerebellum looks fine. 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 [facility] Past Medical History Medical History Mitral stenosis Surgical History Surgical History S/P transcatheter mitral valve replacement (TMVR) Social History Social History Household Members: None Housing: House Do you presently have visiting nurse or other home services: No Unable to assess alcohol history related to: Unknown Alcohol intake: unknown Patient Tobacco Use Status: Never used Tobacco Smoked in Last 30 Days: No Use of substances other than those prescribed or required for medical reasons: Unknown Currently Displaying Signs/Symptoms of Drug Intoxication Withdrawal: No Have you been hit, kicked, punched, or otherwise hurt by someone within the past year? If so, by whom?: No Do you feel safe in your current relationship?: No Current Relationship Is there a partner from a previous relationship who is making you feel unsafe now?: No Are you made to feel afraid or neglected: No Advance Directives: No Advance Directives Information Provided: Yes Do you have a plan to hurt others: No Plan Recently lost weight without trying: No Eating poorly because of decreased appetite: No Nutrition Risks: No Nutritional Risk service: No Meds Allergies Allergy/AdvReac Type Severity Reaction Status Date / Time Iodinated Contrast Media Allergy Unknown ANAPHYLAXIS Verified 03/01/25 08:48 [CONTRAST, IV] iodine [IODINE] Allergy Unknown RASH Verified 03/01/25 08:48 Active Medications: Current Medications Acetaminophen (Acetaminophen 325 Mg Tablet) 650 mg PO Q6H PRN PRN Reason: Pain, Mild 1-3,fever,headache Apixaban (Apixaban 2.5 Mg Tablet) 2.5 mg PO BID [facility] Aspirin (Aspirin Enteric Coated 81 Mg Tablet.Dr) 81 mg PO DAILY [facility] Last Admin: 03/02/25 08:34 Dose: 81 mg Calcium Carbonate (Calcium Carbonate 750 Mg Tab.Chew) 750 mg PO Q4H PRN PRN Reason: Heartburn Magnesium Hydroxide (Milk Of Magnesia 30 Ml Oral.Susp) 30 ml PO DAILY PRN PRN Reason: Constipation Melatonin (Melatonin 3 Mg Tablet) 6 mg PO BEDTIME PRN PRN Reason: Insomnia Ondansetron HCl (Ondansetron Hcl 4 Mg/2 Ml Vial) 4 mg IVPUSH Q8H PRN PRN Reason: Nausea and Vomiting Sodium Chloride (0.9 % Sodium Chloride Flush 3 Ml Syringe) 3 ml IVFLUSH QSHIFT [facility] Last Admin: 03/02/25 08:34 Dose: 3 ml Home Medications ?Medication ?Instructions ?Recorded ?Confirmed ?Last Taken ?Type aspirin 81 mg tablet,delayed 81 mg PO DAILY 03/01/25 03/01/25 Unknown History release cholecalciferol (vitamin D3) 25 25 mcg PO DAILY 03/01/25 03/01/25 Unknown History mcg (1,000 unit) tablet (Vitamin D3) coQ10 (ubiquinol) 200 mg capsule 200 mg PO DAILY 03/01/25 03/01/25 Unknown History furosemide 20 mg tablet 20 mg PO DAILY 03/01/25 03/01/25 Unknown History glucosam 750 mg-chondroi 100 1 tab PO DAILY 03/01/25 03/01/25 Unknown History mg-hyalur 1.65 mg-CF borate 108 mg tablet ([facility] [employer]) lisinopril 2.5 mg tablet 2.5 mg PO DAILY 03/01/25 03/01/25 Unknown History multivitamin with minerals-folic 1 tab PO DAILY 03/01/25 03/01/25 Unknown History acid 400 mcg-lycopene 370 mcg tablet (One-A-Day Men's 50 Plus) potassium chloride 10 mEq 10 meq PO DAILY 03/01/25 03/01/25 Unknown History tablet,extended release vitamin B complex 1 tab PO DAILY 03/01/25 03/01/25 Unknown History Physical Exam 2 Vital Signs: Vital Signs: Last Vital Signs Temp 98.1 F 03/02/25 16:00 Pulse 52 03/02/25 16:00 Resp 18 03/02/25 16:00 BP 113/59 L 03/02/25 16:00 Pulse Ox 98 03/02/25 16:00 O2 Del Method Room Air 03/02/25 16:00 BMI result Body Mass Index 19.7 Neuro: Other: partial left lower quadrant file dcut from old stroke. Otherwise non focal exam. Results Labs 03/02/25 07:01 03/02/25 07:01 Labs: Short CBC 03/02/25 Range/Units 07:01 WBC 3.8 L (4.8-10.8) X10*3/uL Hgb 11.8 L (14.0-18.0) g/dl Hct 34.4 L (42.0-52.0) % Plt Count 125 L (160-400) X10*3/uL BMP 03/02/25 07:01 Sodium 140 Potassium 4.1 Chloride 108 Carbon Dioxide 27 BUN 29 H Creatinine 0.94 Calcium 8.9 Liver Function 03/02/25 Range/Units 07:01 Total Bilirubin 1.5 H (0.0-1.0) mg/dL AST 24 (5-37) U/L ALT 9 (0-40) U/L Alkaline Phosphatase 48 (39-117) U/L Albumin 4.0 (3.5-5.0) g/dL Assessment and Plan (1) Unsteadiness: Status: Acute NO evidence of new stroke. Old right parieto-occi[ital stroke with encephalomalacia. Recom. Restart warfarin for MV prosthesis Procedures Date of Service Date of Service: 03/02/25
[2025-03-02] MEDS: Apixaban 2.5 MG TABLET PO (20:06)
[2025-03-03] VITALS: BP 118/59; PULSE 52; RESP 18; TEMP 36.4; O2SAT 97
[2025-03-03 03:29] VITALS: BP 99/55; PULSE 56; RESP 18; TEMP 36.4; O2SAT 97
[2025-03-03 06:54] LABS: INTERNATIONAL NORM RATIO 1.1 (0.9-1.1); Prothrombin Time 12.7 SEC (10.9-12.4)
[2025-03-03 08:00] VITALS: BP 120/58; PULSE 53; RESP 18; TEMP 36.9; O2SAT 96
[2025-03-03] MEDS: Aspirin Enteric Coated 81 MG TABLET.DR PO (10:56)
[2025-03-03] MEDS: Apixaban 2.5 MG TABLET PO (10:56)
[2025-03-03 11:12] VITALS: BP 118/58; PULSE 59; RESP 20; TEMP 36.8; O2SAT 100
--- NOTE | 2025-03-03 15:10 | MHC.CM.PN ---
Addendum entered by Vanesa Mclaughlin RN 03/03/25 15:19: PER OT MOCA IS , PER HOSPITALIST PT HAS CAPACITY AND WILL BE DISCHARGED W/[facility] FOR SN/PT. Addendum entered by Vanesa Mclaughlin RN 03/03/25 15:10: CM MET W/PT'S COUSIN SIOBHAN HOWEVER SIOBHAN DECLINES TO BE OF ASSISTANCE TO PT, SIOBHAN HAS SEVERAL REASONS WHY HE WILL NOT ACT HCP, WOULD NOT ASSIST PT W/GETTING HIS CAR HOME AND WOULD NOT ASK HIS DTR OLIMPIA TO ASSIST AND WOULD NOT DARE DRIVE PT'S CAR HOME HE COULD BE SUED OR EVEN GIVING PT A RIDE HOME CLAIMING PT CANNOT GET INTO HIS SPORTS CAR. WHEN CM ASKED IF PT'S DTR OLIMPIA COULD ASSIST SIOBHAN REFUSES TO CONTACT HER AND SAYS HE WOULD NOT ASK HER FOR HELP SHE HAS NEVER MET PT BEFORE. FRANCK MAIN CONCERN WAS THAT PT NEVER HAS DONE AN OFFICIAL WILL OR POA AND SO HE WILL NOT BE ABLE TO COLLECT PT'S BODY OR ACCESS HIS HOMES WHEN HE PASSES AWAY. Original Note: CM POLICE SURGEON WAS ABLE TO LOCATE PT'S NIECES OLIMPIA'S NUMBER [phone], CM CONTACTED OLIMPIA WHO SENT HER DAD/PT'S COUSIN SIOBHAN A MESSAGE TO CONTACT CM, CM RECEIVED A CALL FROM SIOBHAN [phone] WHO REPORTS PT NEVER CALLED HIM BEFORE HE WENT TO [place] LAST YEAR AND DIDN'T LET HIM KNOW HE RETURNED. SIOBHAN REPORTS HE WILL NOT ABANDON PT AND WILL BE HERE AT [facility] BY NOON TODAY, CM WILL MEET W/SIOBHAN AND PT WHEN HER ARRIVES.
--- NOTE | 2025-03-16 07:53 | P.CDIM_ITS ---
PROVIDER RESPONSE TEXT: To clarify, the appropriate diagnosis supported by the clinical indicators: Diagnosis of Stroke was present on admission QUERY TEXT: PHYSICIAN'S DOCUMENTATION REQUEST Date of Query: 03/15/2025 08:05 AM EDT Patient Name: Ahmet Reddy Admit Date: 03/01/2025 Dear Ihsan Nicholas MD, A review of the medical record indicates additional documentation may be needed. Please review below and update the documentation accordingly. Clinical Indicators: presented with unsteadiness MRI brain: Possible tiny subacute left occipital infarcts. Neurology Consultation 03/02/25: NO evidence of new stroke. Old right parieto-occipital stroke with en cephalomalacia. Per Discharge Summary : subacute cerebellar strokes Please clarify the following: Diagnosis of Stroke was present on admission Diagnosis of Stroke was ruled out Diagnosis is still a likely, suspected, probable diagnosis Other (explain) Clinically unable to determine (explain) Thank you, Katelynn Kaplan RN Use of terms such as suspected, likely, concern for, or probable (associated with a specific diagnosi s that is being evaluated, monitored, or treated as if it exists) are acceptable and can be coded in the inpatient se tting, when documented at the time of discharge. Please use your independent medical judgment in providing your response. THIS QUERY IS PART OF THE PERMANENT MEDICAL RECORD
== END 2025-03-03 11:55 | disposition home health service (06) | DRG 42 ==
LOC: HO.ED 17:43 → HO.EDOVER 17:51 → HO.IMC 23:39
PROVIDERS: Emergency Medicine; Internal Medicine Cardiovascular Disease; Admitting Provider Student in an Organized Health Care Education/Training Program; Emergency Provider Emergency Medicine; PCP Internal Medicine; Visit Provider Student in an Organized Health Care Education/Training Program
PROC: 0JH602Z Insertion of Monitoring Device into Chest Subcutaneous Tissue and Fascia, Open Approach (ICD-10-PCS; CPT 33285; principal; 2025-03-02 13:30)
DX: I63.9 Cerebral infarction, unspecified (principal); R29.700 NIHSS score 0; T45.516A Underdosing of anticoagulants, initial encounter; Z86.73 Personal history of transient ischemic attack (TIA), and cerebral infarction without residual deficits; Z95.2 Presence of prosthetic heart valve; Z79.82 Long term (current) use of aspirin; Z79.899 Other long term (current) drug therapy
CPT/HCPCS: 0241U; 36415; 70450; 70551; 80048; 80053; 81001; 83690; 85025; 85610; 93005; 93880; 97162; 97166; 99284; 99285; C1764; J1650; J2004; Q9957

== ENCOUNTER → 2025-03-01 08:53 | Outpatient (BNV) | payer MEDICARE, SELFPAY | PROVIDERS: Emergency Provider Emergency Medicine; PCP Internal Medicine; Visit Provider Internal Medicine Cardiovascular Disease | DX: I45.2 Bifascicular block (principal); I44.0 Atrioventricular block, first degree; R00.1 Bradycardia, unspecified | CPT/HCPCS: 93010 ==

== ENCOUNTER → 2025-03-01 09:43 | Outpatient (BNV) | payer MEDICARE, SELFPAY | PROVIDERS: Emergency Provider Emergency Medicine; PCP Internal Medicine; Visit Provider Radiology Diagnostic Radiology | DX: R26.81 Unsteadiness on feet (principal); I63.81 Other cerebral infarction due to occlusion or stenosis of small artery; I70.90 Unspecified atherosclerosis | CPT/HCPCS: 70450; 70551; 93880 ==

== ENCOUNTER → 2025-03-01 17:50 | Outpatient (BNV) | payer MEDICARE, SELFPAY | PROVIDERS: Admitting Provider Student in an Organized Health Care Education/Training Program; Emergency Provider Emergency Medicine; PCP Internal Medicine; Visit Provider Psychiatry & Neurology Neurology | DX: R26.81 Unsteadiness on feet (principal) | CPT/HCPCS: 99223 ==

== ENCOUNTER → 2025-03-01 17:50 | Outpatient (BNV) | payer MEDICARE, SELFPAY | PROVIDERS: Admitting Provider Student in an Organized Health Care Education/Training Program; Emergency Provider Emergency Medicine; PCP Internal Medicine; Visit Provider Student in an Organized Health Care Education/Training Program | DX: Z95.2 Presence of prosthetic heart valve (principal); R41.89 Other symptoms and signs involving cognitive functions and awareness; I63.9 Cerebral infarction, unspecified; R26.81 Unsteadiness on feet | CPT/HCPCS: 99223; 99239; G0180 ==

== ENCOUNTER → 2025-03-01 17:50 | Outpatient (BNV) | payer MEDICARE, SELFPAY | PROVIDERS: Admitting Provider Student in an Organized Health Care Education/Training Program; Emergency Provider Emergency Medicine; PCP Internal Medicine; Visit Provider Internal Medicine Cardiovascular Disease | DX: I63.9 Cerebral infarction, unspecified (principal) | CPT/HCPCS: 33285; 99222 ==

== ENCOUNTER 2025-03-20 11:53 | Emergency (ER) | payer MEDICARE, SELFPAY ==
--- NOTE | ~2025-03-20 | CT_ITS ---
CLINICAL HISTORY: fall on thinners CT head without contrast Comparison: MR/WA/SR - MR HEAD/BRAIN WO CON - 03/01/25 14:[address]/WA/SR - CT HEAD/BRAIN WO IV CON - 03/01/25 09:[address]/SR - CT HEAD/BRAIN WO IV CON - 02/26/25 13:35 EDT Findings: No intra-axial mass, midline shift, hydrocephalus, or acute hemorrhage. Age appropriate cerebral volume loss. Patchy low-density within the periventricular and subcortical white matter. Small chronic right medial parietal lobe infarct as before. There is no sinus or mastoid fluid. The orbits are unremarkable. There is no acute fracture. IMPRESSION: 1. No acute intracranial findings. This document has been electronically signed by: Jessica Begum MD on 03/20/2025 14:26:29
--- NOTE | 2025-03-20 11:56 | ED.LOWEXIN ---
HPI - Extremity Injury (Lower) General Chief Complaint: Extremity Injury, Lower Stated Complaint: leg inj Time Seen by Provider: 03/20/25 12:18 Source: patient Mode of arrival: ambulatory Limitations: no limitations History of Present Illness ED Provider: MISTY ACUNA PA-C HPI Narrative: 85 year old male with pmhx significant for sarcoid, aortic stenosis, mitral stenosis s/p TMVR (10/2024), arthritis presents to the ED today for evaluation s/p fall yesterday. Patient reports losing his balance while walking in his yard yesterday. Reports falling to the ground on his left side, scraping his left perrin on a large rock that was in his yard. Admits that these abrasions bled for a while as he is on a blood thinner however after wrapping the leg overnight, the bleeding has ceased. Denies head strike or LOC. He was able to stand up on his own and ambulate following fall. Reports driving himself to the ED today for further evaluation. He is unsure of tetanus status. On further questioning, patient reports frequent dizzy spells since his TMVR procedure in October of this year. He states he is fairly active and frequently walks outside however feels unsteady on his feet due to his dizziness. He denies headache, chest pain, palpitations, SOB, calf pain/swelling. Related Data Home Medications ?Medication ?Instructions ?Recorded ?Confirmed aspirin 81 mg tablet,delayed 81 mg PO DAILY 03/01/25 03/01/25 release cholecalciferol (vitamin D3) 25 25 mcg PO DAILY 03/01/25 03/01/25 mcg (1,000 unit) tablet (Vitamin D3) coQ10 (ubiquinol) 200 mg capsule 200 mg PO DAILY 03/01/25 03/01/25 furosemide 20 mg tablet 20 mg PO DAILY 03/01/25 03/01/25 glucosam 750 mg-chondroi 100 1 tab PO DAILY 03/01/25 03/01/25 mg-hyalur 1.65 mg-CF borate 108 mg tablet ([employer]) lisinopril 2.5 mg tablet 2.5 mg PO DAILY 03/01/25 03/01/25 multivitamin with minerals-folic 1 tab PO DAILY 03/01/25 03/01/25 acid 400 mcg-lycopene 370 mcg tablet (One-A-Day Men's 50 Plus) potassium chloride 10 mEq 10 meq PO DAILY 03/01/25 03/01/25 tablet,extended release vitamin B complex 1 tab PO DAILY 03/01/25 03/01/25 Previous Rx's ?Medication ?Instructions ?Recorded apixaban 2.5 mg tablet (Eliquis) 2.5 mg PO BID #180 tabs 03/02/25 Allergies Allergy/AdvReac Type Severity Reaction Status Date / Time Iodinated Contrast Media Allergy Unknown ANAPHYLAXIS Verified 03/20/25 11:58 [CONTRAST, IV] iodine [IODINE] Allergy Unknown RASH Verified 03/20/25 11:58 Review of Systems Review of Systems: Constitutional: No fever, chills, fatigue, night sweats, weight changes ENT/Mouth: No ear pain, hearing loss, nasal congestion, sinus pain, rhinorrhea, sore throat Eyes: No eye pain, swelling, redness, vision changes, discharge Cardio: No chest pain, palpitations, TIRADO, orthopnea, peripheral edema Pulm: No SOB, cough, sputum, wheezing, dyspnea, hemoptysis GI: No nausea, vomiting, hematemesis, abdominal pain, diarrhea, constipation, hematochezia, melena : No irregular bleeding, dysuria, frequency, urgency, hesitancy, hematuria, flank pain, urinary flow changes, urinary incontinence or retention MSK: No back pain, neck pain, joint pain, myalgias Skin: No lesions, rashes, +superficial abrasions Neuro: No weakness, numbness, paresthesias, LOC, headache, +dizziness Psych: No anxiety/panic, depression, SI/HI, AH/VH All other systems reviewed and are negative. [facility] Past Medical History Attestation statement: The following information was validated with the patient. Source: old records reviewed and nursing notes reviewed Medical History Cognitive impairment Mitral stenosis Surgical History S/P transcatheter mitral valve replacement (TMVR) Social History Social History Household Members: None Housing: House Do you presently have visiting nurse or other home services: No Unable to assess alcohol history related to: Unknown Alcohol intake: unknown Patient Tobacco Use Status: Never used Tobacco Smoked in Last 30 Days: No Use of substances other than those prescribed or required for medical reasons: No Advance Directives: No Advance Directives Information Provided: Yes Do you have a plan to hurt others: No Plan service: No Physical Exam Vital Signs: Vital Signs: Last Vital Signs Temp 97.9 F 03/21/25 07:21 Pulse 79 03/21/25 07:21 Resp 12 03/21/25 07:21 BP 111/49 L 03/21/25 07:21 Pulse Ox 99 03/21/25 07:21 O2 Del Method Room Air 03/21/25 07:21 BMI result Body Mass Index 19.7 vital signs stable General: Well appearing, in no acute distress. Skin: Warm, dry, intact. No rashes or lesions. Head: Normocephalic, atraumatic. EENT: Hearing is intact b/l. Conjunctiva clear. Sclera is anicteric. PERRLA. EOM intact. Moist mucous membranes.? Neck: Supple without LAD Cardiac: Chest wall symmetric. RRR Lungs: Normal respiratory effort without accessory muscle use. CTA bilaterally Abdomen: Soft, non-tender, non-distended. No rebound tenderness or guarding. Positive BS x4. Back: No midline spinous or paraspinal tenderness. No step off deformity. Ext: +superficial skin abrasions noted to lateral aspect of left perrin with coagulated blood. No active bleeding. Neuro: AOx3. Normal speech. Normal [id number], [id number]. NIH 0. Strength 5/5 intact throughout. No saddle anesthesia. Sensation intact to light touch. NV intact distally. Ambulating with steady gait. 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 This is a rapid medical exam. Deferred additional HPI, ROS, PE to primary provider. Bleeding controlled, needs some debridement and cleaning. VSS Reevaluation(s) Reevaluation #1: CBC without leukocytosis or left shift. Normocytic anemia, H and H appears to be around patient's baseline and above transfusion threshold. Chemistry without acute electrolyte abnormality requiring intervention. BUN 31, normal creatinine. Ammonia WNL. TSH wnl. Random glucose 120. CT head without acute intracranial bleed or mass. There are small chronic right medial parietal lobe infarcts noted previously. EKG showing sinus bradycardia with first-degree AV block and bifascicular block, noted on prior EKGs. Troponin WNL. Orthostatic vital signs are negative however patient endorsed feeling dizzy upon standing. 1 L of fluids ordered. > superficial skin abrasions to left perrin cleaned with saline, iodine and dressed. No open lacerations. No active bleeding. Tdap is up-to-date as of 05/03/2024. > I have hesitations discharging patient home. He currently lives home alone. He is and has no children. I have reviewed notes from recent admission for possible cerebellar infarct 2 weeks ago. He was evaluated and cleared by both Cardiology and Neurology at that time. Continued dizziness likely secondary to chronic infarcts. OT/PT had concern for cognitive impairment. He scored 23 on MOCA indicating MCI. They had noted that patient could not even recall the number 911 to dial in emergencies. An attempt was made by [facility] at that time to contact family however they had declined any intervention. On my initial interview today, patient told me that the last time that he was medically evaluated was in October of this year in [place]. He does not recall his admission at our facility 2 weeks ago. He was advised to follow-up regarding ED visit. It is evident that he forgot about his visit and has not made the appropriate follow up appointments. He drove himself here today. I do have concern with him leaving the ED given his cognitive impairment and continued dizziness with poor outpatient follow up. I discussed case with [facility] [employer] who at this time is recommending PT evaluation, which will not be done until tomorrow morning (Friday). I discussed all work up results with patient. I noted concern for his ongoing dizziness/ falls and his safety at home. He is amenable to staying over night for PT evaluation. His exam is nonfocal and cerebellar exam is intact, I do not feel as though he needs repeat MR brain. > physician observation initiated at this time. 03/21/25 09:25 Per Milvia from [facility], patient passed his PT evaluation. He does not require any services and is stable for dischage home. Observation care revealed that patient does not meet medical necessity for hospitalization. Final disposition discussed with patient. The patient completed observation care at 09:25 on 03/21/25. Medications Administered Discontinued Medications Generic Name Dose Route Start Last Admin Trade Name Angie PRN Reason Stop Dose Admin Sodium Chloride 1,000 mls @ 999 mls/hr 03/20/25 12:45 03/20/25 14:17 Ns IV 03/20/25 13:45 Infused .Q1H1M PARAG Infusion Medical Decision Making Medical Decision Making [facility] Narrative: 85 year old male with pmhx significant for sarcoid, aortic stenosis, mitral stenosis s/p TMVR (10/2024), arthritis presents to the ED today for evaluation s/p fall yesterday. Differential diagnosis inludes anemia, electrolyte abnormality, dehydration, orthostatic hypotension, superficial skin abrasion, laceration, dementia, cognitive impairment Unlikely fracture, ICH, skull fracture, CVA, TIA, cerebellar infarct Plan for labs, EKG, CT head/brain, wound care, re-evaluation Differential Diagnosis Differential Diagnoses: The differential diagnosis associated with the presentation includes As above Admission/Observation Consideration of admission/observation: Escalation of care including admission/observation considered Lab Data [facility] Lab Attestation statement: I reviewed the patient's lab results. As above 03/20/25 13:00 03/20/25 13:00 Labs: Lab Results 03/20/25 03/20/25 03/20/25 Range/Units 13:00 15:33 15:34 WBC 4.8 (4.8-10.8) X10*3/uL RBC 3.48 L (4.60-5.80) X10*6/uL Hgb 11.5 L (14.0-18.0) g/dl Hct 32.7 L (42.0-52.0) % MCV 94.0 (80.0-98.0) fL MCH 33.0 (27.0-33.0) pg MCHC 35.2 (31.0-36.0) g/dl RDW 12.6 (11.0-16.0) % Plt Count 127 L (160-400) X10*3/uL MPV 10.0 (9.4-12.4) fL Immature Gran % (Auto) 0.2 (0.0-0.4) % Neut % (Auto) 66.1 (45-73) % Lymph % (Auto) 20.2 (20-40) % [place] % (Auto) 8.6 (2-11) % Eos % (Auto) 3.6 (0-4) % Baso % (Auto) 1.3 (0-2) % Lymph # (Auto) 1.0 L (1.2-4.9) X10*3/uL [place] # (Auto) 0.4 (0.1-1.2) X10*3/uL Eos # (Auto) 0.2 (0.0-0.4) X10*3/uL Baso # (Auto) 0.1 (0.0-0.2) X10*3/uL Abs Immat Gran (auto) 0.01 (0.00-0.03) X10*3/uL Absolute Neuts (auto) 3.1 (2.0-8.3) x10*3/uL Absolute Nucleated RBC 0.000 (0.0-0.012) X10*3/uL Nucleated RBC % (auto) 0.0 (0.0-0.2) /100WBC Sodium 141 (135-145) mmol/L Potassium 5.0 D (3.3-5.1) mmol/L Chloride 110 H (96-108) mmol/L Carbon Dioxide 22 (22-29) mmol/L Anion Gap 14 (12-20) BUN 31 H (9-16) mg/dL Creatinine 0.86 (0.5-1.4) mg/dL Estim Creat Clear Calc 53.0 Estimated GFR > 60 Random Glucose 120 H (60-115) mg/dL Calcium 9.0 (8.4-10.2) mg/dL Magnesium 2.3 (1.6-2.6) mg/dL Total Bilirubin 1.6 H (0.0-1.0) mg/dL AST 33 (5-37) U/L ALT 12 (0-40) U/L Alkaline Phosphatase 46 (39-117) U/L Ammonia 33 (13-55) umol/L Troponin I High Sens 11.8 (<3.5-35.0) ng/L Total Protein 6.6 (6.5-8.0) g/dL Albumin 4.0 (3.5-5.0) g/dL TSH 2.67 (0.32-4.0) uIU/mL Influenza Type A (PCR) NEGATIVE (Negative) Influenza Type B (PCR) NEGATIVE (Negative) RSV RNA Qual (PCR) NEGATIVE (Negative) SARS-CoV-2 RNA (RT-PCR) NEGATIVE (Negative) Independent Interpretation I performed an independent interpretation of an: EKG and CT Scan Interpretation: EKG showing sinus bradycardia with first-degree AV block, bifascicular block, evident on priors CT head/brain without bleed or mass Radiology Impression Discussion of test interpretation with radiology: I have reviewed the radiologist's reading. Radiologist Impression: Date of Service: 03/20/25 Procedure(s): CT head/brain wo IV con Accession Number(s): [id number] cc: Liliya Holden MD; Misty Acuna~ Report Number: [id number]: Total DLP = 600.00 mGy-cm CLINICAL HISTORY: fall on thinners CT head without contrast Comparison: MR/DC/SR - MR HEAD/BRAIN WO CON - 03/01/25 14:[address]/DC/SR - CT HEAD/BRAIN WO IV CON - 03/01/25 09:[address]/SR - CT HEAD/BRAIN WO IV CON - 02/26/25 13:35 EDT Findings: No intra-axial mass, midline shift, hydrocephalus, or acute hemorrhage. Age appropriate cerebral volume loss. Patchy low-density within the periventricular and subcortical white matter. Small chronic right medial parietal lobe infarct as before. There is no sinus or mastoid fluid. The orbits are unremarkable. There is no acute fracture. IMPRESSION: 1. No acute intracranial findings. This document has been electronically signed by: Jessica Begum MD on 03/20/2025 14:26:29 External Record Review External record reviewed: Inpatient record Social Determinants Patient?s care significantly limited by Social Determinants of Health including: Other Social Determinant of Health Critical Care Time Critical Care Time Critical Care Time: No Discharge Plan Discharge Clinical Impression: Abrasion of skin of left lower leg, Frequent falls, Dizziness Patient Disposition: Home, Self-Care Instructions: Fall Prevention for Older Adults (ED) Additional Instructions: You were evaluated in the emergency department after a fall. Your evaluation did not show evidence of conditions requiring emergent medical treatment. You passed your physical therapy evaluation and are stable for discharge home. We recommend that you follow-up with your primary care provider within 1 week. Return to the emergency department with new or concerning symptoms. Prescriptions: No Action potassium chloride 10 mEq tablet extended release 10 meq PO DAILY furosemide 20 mg tablet 20 mg PO DAILY lisinopril 2.5 mg tablet 2.5 mg PO DAILY aspirin 81 mg Tablet,Delayed Release (Dr/Ec) 81 mg PO DAILY vitamin B complex Tablet 1 tab PO DAILY cholecalciferol (vitamin D3) [Vitamin D3] 25 mcg (1,000 unit) Tablet 25 mcg PO DAILY [employer] 750 mg-100 mg- 1.65 mg-108 mg Tablet 1 tab PO DAILY One-A-Day Men's 50 Plus 400-370 mcg Tablet 1 tab PO DAILY coQ10 (ubiquinol) 200 mg Capsule 200 mg PO DAILY Eliquis 2.5 mg Tablet 2.5 mg PO BID Qty: 180 0RF Print Language: Korean
[2025-03-20 11:57] VITALS: BP 105/45; PULSE 75; RESP 16; TEMP 36.8; O2SAT 96; BMI 19.7
--- OUTSIDE RECORDS SUMMARY | 2025-03-20 12:14 | XMS_ITS | Continuity of Care Document ---
Author Organization [facility] Address [address] [facility] [address] [place] [address] Phone Care Team Providers Care Superintendent Factory Name Role Phone Zion Jauregui MD Unavailable Unavailable Allergies, Adverse Reactions, Alerts Substance Reaction Status Criticality Iodinated Contrast Media HIVES Active No Information Medications Medication Instructions Dosage Effective Dates (start - stop) Status Comments aspirin 81 mg Tab one tablet by mouth daily - Active Prevacid 30 mg Cap one tablet by [...] Providers Copied on Encounter [facility], [address] [facility] [address], [place], [place], [address] [place] [address], tel:[phone] [facility] No Information Mar-3 1-201 0 Shania Donovan. [address] [facility], [place], [place], [address] [place] [address], . tel:[phone] Referring Provider: Zion Montejo, [address] [facility], [place], [address] [place] [address]. tel:[phone] [facility], [address] [facility] [address] , [place], [address] [place] [address], tel:[phone] [facility] No Information Mar-3 0-[address] [facility], [address] [facility], [place], [address] [place] [address], tel:[phone] [facility] No Information Mar-1 8-201 0 [place] Sulema. [address] [facility], [place], [address] [place] [address], . tel:[phone] Referring Provider: Sulema Baumaner, [address], [place], [address] [place] [address]. tel:[phone] [facility], [address] [facility], [place], [address] [place] [address], tel:[phone] [facility] No Information Nathaniel-0 6-201 0 [place] Sulema. [address] [facility], [place], [address] [place] [address], . tel:[phone] Referring Provider: Sulema Saravia, [address] [facility], [place], [address] [place] [address]. tel:[phone] [facility], [address] [facility], [place], [address] [place] [address], tel:[phone] [facility] No Information Dec-0 8-200 9 Rani Sulema. [address], [place], [address] [place] [address], . tel:[phone] Referring Provider: Sulema Saravia, [address], [place], [address]. tel:[phone] [facility], [address] [facility], [place], [place], [id number], tel:[phone] [facility] No Information Dec-0 200 9 Saji Veronica. [address], [id number], . tel:[phone] Referring Provider: Jeremías Petersen, [address], [place], [address]. tel:[phone] [facility], [address], [id number], tel:[phone] [facility] No Information Dec-0 9 Saji Veronica. [address], [id number], [place]. tel:[phone] Referring Provider: Jeremías Petersen, [address], [address]. tel:[phone] Office/Outpt E&M Estab Phyllis RAMIREZ, [address], [facility] [address], [place], [place], [id number], tel:[phone] Phyllis RAMIREZ No Information Dec-0 200 9 No Information Referring Provider: Jeremías Petersen, [address], [address]. tel:[phone] [facility], [address], [place], [place], [id number], tel:[phone] [facility] No Information Dec-[address] [facility]. [address], [place], [address] [place] [address], . tel:[phone] Referring Provider: Jeremías Petersen, [address] [facility], [place], [address] [place] [address]. tel:[phone] [facility], [address] [facility] [address] , [place], [address] [place] [address], tel:[phone] [facility] No Information 9 Saji Veronica. [address] [facility], [place], [address] [place] [address], . tel:[phone] Referring Provider: Jeremías Petersen, [address], [place], [address] [place] [address]. tel:[phone] Offic/outpt E&m Estab Low-mod [facility], [address] [place] [address], [place], [address] [place] [address], tel:[phone] [facility] No Information 9 Raymond Aburto. [address], [place], [address] [place] [address], . tel:[phone] Referring Provider: Lamonte Torres, [address], [place], [address] [place] [address]. tel:[phone] [facility], [address] [facility], [place], [address] [place] [address], tel:[phone] [facility] No Information 9 Raymond Aburto. [address], [place], [address] [place] [address], . tel:[phone] Referring Provider: Lamonte Torres, [address], [place], [address] [place] [address]. tel:[phone] [facility], [address], [place], [address] [place] [address], tel:[phone] [facility] No Information 9 Raymond Aburto. [address] [place], [place] [address]way [facility], [place], [address] [place] [address], . tel:[phone] Referring Provider: Lamonte Torres, [address] [place] [address], [place], [address] [place] [address]. tel:[phone] [facility], [address] [facility], [place], [address] [place] [address], tel:[phone] [facility] No Information 8 Saji Veronica. [address] [place] [address], [address] [place] [address], . tel:[phone] Referring Provider: Jeremías Petersen, [address] [place] [address], [address] [place] [address]. tel:[phone] Offic Cons New/Estab Low Phyllis RAMIREZ, [address], [facility] [address], [place], [place], [id number], tel:[phone] Phyllis RAMIREZ No Information 8 No Information Referring Provider: Jeremías Petersen, [address] [place] [address], [address] [place] [address]. tel:[phone] [facility], [address] [facility], [place], [address] [place] [address], tel:[phone] [facility] No Information 8 Roe Cotto. [address], [place], [address] [place] [address], . tel:[phone] Referring Provider: [place], [address], [place], [address] [place] [address]. tel:[phone] [facility], [address] [place], [place], [id number], tel:[phone] [facility] No Information 8 Saji Veronica. [address], [place], [place], [id number], . tel:[phone] Referring Provider: Jeremías Petersen, [address], [address] [place] [address]. tel:[phone] [facility], [address] [facility], [place], [place], [id number], tel:[phone] [facility] No Information 8 [facility]. [address], [address] [place] [address], . tel:[phone] Referring Provider: Jeremías Petersen, [address], [address] [place] [address]. tel:[phone] [facility], [address], [place], [place], [id number], tel:[phone] [facility] No Information 8 Keagan Oneal. [address], [address] [place] [address], . tel:[phone] Referring Provider: Jeremías Petersen, [address], [address] [place] [address]. tel:[phone] [facility], [address], [place], [place], [id number], tel:[phone] [facility] No Information 8 Saji Veronica. [address], [id number], . tel:[phone] Referring Provider: Jeremías Petersen, [address], [address]. tel:[phone] [facility], [address], [place], [place], [id number], tel:[phone] [facility] No Information 8200 8 Saji Cochran [address], [id number], . tel:[phone] Referring Provider: Jeremías Petersen, [address], [address]. tel:[phone] Family History Family Member Type Diagnosis Age At Onset Father Problem (finding) chronic obstructive jane g disease 82 Mother Problem (finding) Peritonits/ Diverticuli tis 77 Payers Payer name Insurance type Covered libertarian ID Sal espinal(s) Medicare [id number] [employer] Benefit Plan [id number] Social History Type Description Quantity Date Captured [...]
--- NOTE | 2025-03-20 12:41 | ECG_ITS ---
Test Reason : DIZZINESS Blood Pressure : */* mmHG Vent. Rate : 54 BPM Atrial Rate : 54 BPM P-R Int : 232 ms QRS Dur : 144 ms QT Int : 482 ms P-R-T Axes : 55 -48 37 degrees QTcB Int : 457 ms Sinus bradycardia with 1st degree A-V block Right bundle branch block Left anterior fascicular block Bifascicular block Septal infarct (cited on or before 01-Mar-2025) Abnormal ECG When compared with ECG of 01-Mar-2025 08:59, Questionable change in initial forces of Septal leads T wave inversion no longer evident in Inferior leads Referred By: Misty Acuna Electronically Signed By: Stanford Bhatti
[2025-03-20 13:04] LABS: MANUAL DIFF FLAG NO
[2025-03-20 13:07] LABS: Basophils Absolute Auto 0.1 X10*3/uL (0.0-0.2); Basophils Percent Auto 1.3 % (0-2); Eosinophils Absolute Auto 0.2 X10*3/uL (0.0-0.4); Eosinophils Percent Auto 3.6 % (0-4); Hematocrit 32.7 % (42.0-52.0); Hemoglobin 11.5 g/dl (14.0-18.0); Imm Gran Abs Auto 0.01 X10*3/uL (0.00-0.03); Imm Gran Pct Auto 0.2 % (0.0-0.4); Lymphocytes Percent Auto 20.2 % (20-40); Mean Corpuscular HGB Conc 35.2 g/dl (31.0-36.0); Monocytes Absolute Auto 0.4 X10*3/uL (0.1-1.2); Monocytes Percent Auto 8.6 % (2-11); Neutrophils Absolute Auto 3.1 x10*3/uL (2.0-8.3); Neutrophils Percent Auto 66.1 % (45-73); Platelet Count 127 X10*3/uL (160-400); Red Blood Count 3.48 X10*6/uL (4.60-5.80); Red Cell Distribution Width 12.6 % (11.0-16.0); White Blood Count 4.8 X10*3/uL (4.8-10.8)
[2025-03-20 13:11] VITALS: BP 116/57; PULSE 55
[2025-03-20 13:12] VITALS: BP 114/63; BP 120/64; PULSE 55; PULSE 58
[2025-03-20] MEDS: 0.9 % Sodium Chloride 1,000 ML 999 ML IV (13:16)
[2025-03-20 13:38] LABS: Alanine Aminotransferase 12 U/L (0-40); Alkaline Phosphatase 46 U/L (39-117); Anion Gap 14 (12-20); Aspartate Amino Transferase 33 U/L (5-37); Bilirubin Total 1.6 mg/dL (0.0-1.0); Blood Urea Nitrogen 31 mg/dL (9-16); Carbon Dioxide 22 mmol/L (22-29); Chloride 110 mmol/L (96-108); Estimated Glomerular Filt Rate > 60; Glucose Random 120 mg/dL (60-115); Magnesium 2.3 mg/dL (1.6-2.6); Sodium 141 mmol/L (135-145); Total Protein 6.6 g/dL (6.5-8.0)
[2025-03-20 13:44] LABS: Troponin-I High Sensitivity 11.8 ng/L (<3.5-35.0)
--- NOTE | 2025-03-20 14:55 | MHC.CM.ED ---
Received case management consult. Patient came to the ER due to leg pain. Work up essentially negative. Physical therapy eval is ordered and unavailable before tomorrow 03/21. Patient will remain in ER overnight. Continue to monitor for d/c needs.
[2025-03-20 15:24] LABS: Thyroid Stimulating Hormone 2.67 uIU/mL (0.32-4.0)
[2025-03-20 16:41] LABS: Influenza A PCR NEGATIVE (Negative); Influenza B PCR NEGATIVE (Negative); Resp Syncy Virus RNA Qual PCR NEGATIVE (Negative); SARS COV2 PCR INHOUSE NEGATIVE (Negative)
[2025-03-20 16:48] LABS: Ammonia 33 umol/L (13-55)
--- NOTE | 2025-03-20 19:04 | PC.NURSE ---
Report from URSULA Yepez.
--- NOTE | 2025-03-20 21:06 | PC.NURSE ---
Report given to URSULA Owens.
--- NOTE | 2025-03-21 01:18 | PC.NURSE ---
Patient resting comfortably on stretcher bed, RR 16, even chest wall rise and fall. Call correa in patient's reach.
[2025-03-21 05:09] VITALS: BP 121/45; PULSE 52; RESP 16; TEMP 36.5; O2SAT 97
[2025-03-21 07:21] VITALS: BP 111/49; PULSE 79; RESP 12; TEMP 36.6; O2SAT 99
--- NOTE | 2025-03-21 08:23 | PC.NURSE ---
Pt in street clothes when this RN assumed care; pt is refusing to change into hospital attire; charge loader made aware; pt appears confused at times as to why he's in the ER; PT is at bedside for eval; pt has wander alert band on for safety
--- NOTE | 2025-03-21 09:23 | MHC.CM.ED ---
Patient remains in ER. Physical therapy eval completed. No services indicated. Met with patient in regards to discharge planning. Patient feels he can safely return home and has transportation. Bita GAN and Maddie RN made aware. Continue to monitor for d/c needs.
--- NOTE | 2025-03-21 09:43 | PC.NURSE ---
Pt ambulating in hallway with independent, steady gait; pt alert and oriented x2, confused to date, but new year, month, , location and person
[2025-03-21 09:45] VITALS: BP 113/56; PULSE 77; RESP 16; TEMP 36.6; O2SAT 99
[2025-03-21 09:48] VITALS: BP 113/56; BP 116/62; PULSE 77; RESP 16; TEMP 36.2; O2SAT 99
== END 2025-03-21 09:48 | disposition home or self-care (01) ==
PROVIDERS: Physician Assistant Medical; Emergency Provider Emergency Medicine; PCP Internal Medicine
DX: S80.812A Abrasion, left lower leg, initial encounter (principal); W18.39XA Other fall on same level, initial encounter; R42 Dizziness and giddiness; R29.6 Repeated falls; Z91.81 History of falling; I44.0 Atrioventricular block, first degree; I45.2 Bifascicular block; R00.1 Bradycardia, unspecified; Z95.2 Presence of prosthetic heart valve; Z79.82 Long term (current) use of aspirin; Z79.899 Other long term (current) drug therapy; Z79.01 Long term (current) use of anticoagulants; Y93.01 Activity, walking, marching and hiking; Y92.017 Garden or yard in single-family (private) house as the place of occurrence of the external cause; Y99.9 Unspecified external cause status; Z03.818 Encounter for observation for suspected exposure to other biological agents ruled out
CPT/HCPCS: 0241U; 36415; 70450; 80053; 82140; 83735; 84443; 84484; 85025; 93005; 96360; 97161; 99285

== ENCOUNTER → 2025-03-20 12:41 | Outpatient (BNV) | payer MEDICARE, SELFPAY | PROVIDERS: Emergency Provider Emergency Medicine; PCP Internal Medicine; Visit Provider Internal Medicine Cardiovascular Disease | DX: I44.0 Atrioventricular block, first degree (principal); I45.2 Bifascicular block; I25.2 Old myocardial infarction | CPT/HCPCS: 93010 ==

== ENCOUNTER → 2025-03-20 12:41 | Outpatient (BNV) | payer MEDICARE, SELFPAY | PROVIDERS: Emergency Provider Emergency Medicine; PCP Internal Medicine; Visit Provider Radiology Diagnostic Radiology | DX: R90.82 White matter disease, unspecified (principal) | CPT/HCPCS: 70450 ==

== ENCOUNTER 2025-04-27 08:22 | Emergency (ER) | payer MEDICARE, SELFPAY ==
--- OUTSIDE RECORDS SUMMARY | 2010-01-03 05:15 | XMS_ITS | Continuity of Care Document ---
Author Organization [facility] Address [address] [facility] [address] [place] [address] Phone Care Team Providers Care Auto Dismantler Name Role Phone Zion Jauregui MD Unavailable Unavailable Allergies, Adverse Reactions, Alerts Substance Reaction Status Criticality Iodinated Contrast Media HIVES Active No Information Medications Medication Instructions Dosage Effective Dates (start - stop) Status Comments Prevacid 30 mg Cap one tablet by mouth daily - Active aspirin 81 mg Tab one tablet by mouth daily - Active Procedures Procedure Date Ophth Serv: Med Exam; Comp Est 10 <content ID='ProcedureDescri ption_1' xmlns='urn:hl7-org:v3'>Ophth Exten W/ret Draw W/i&r;</content> <content ID='ProcedureDescri ption_2' xmlns='urn:hl7-org:v3'>Ophth Exten W/ret Draw W/i&r;</content> Ophth Serv: Med Exam; Comp Est 10 Ophth Serv: Med Exam; Interm E 10 Postop F/u Visit Incld Global 0 No Charge Refraction Postop F/u Visit Incld Global 9 No Charge Refraction Extracapsular Cataract Remov I 09 COMP PREOP ASSESS CAT SURG Anes- Eye; Lens Surg Surgery Pre-Payment Determ Refractive State Post Op 009 Office/Outpt E&M Estab FACILITY NTIOL Category 3 Ophth Serv: Med Exam; Comp Est 09 E-RX System Avail But No RX Ophth Biomet Part Cohernc Intr 09 Astigmatism Protocol Offic/outpt E&m Estab Low-mod 9 Optic Nerve Head Eval Echo Exam Of Eye, Thickness Scan Computeriz Ophth Dx Imag 9 Scan Computeriz Ophth Dx Imag 9 Ophth Serv: Med Exam; Comp Est 09 Postop F/u Visit Incld Global 8 No Charge Refraction Offic Cons New/Estab Low Postop F/u Visit Incld Global 8 No Charge Refraction Determ Refractive State Post Op 008 FACILITY NTIOL Category 3 Anes- Eye; Lens Surg Extracapsular Cataract Remov I 08 Pre SX Measure And Calc Doc Dilated Fundus Eval Performed 8 Ophth Serv: Med Exam; Comp New 08 Ophth Biomet Part Cohernc Intr 08 Doc Visual Status Determ Refractive State Astigmatism Protocol Advance Directives Directive Yes / No Effective Date File Name Resuscitation Not Answered N/A N/A Life Support Not Answered N/A N/A Intubation Not Answered N/A N/A Antibiotics Not Answered N/A N/A IV Fluid Support Not Answered N/A N/A Tube Feed Not Answered N/A N/A Other Directive N/A N/A WARNING:The information contained in this section is historical and is provided for information only and does not constitute a legal document or any assurance that the information is still accurate. Please verify the information with the ramachandran of the legal document before using it for clinical purposes. Encounters Encounter Description Practice Location Reason(s) For Visit Diagnoses Date Provider Providers Copied on Encounter [facility], [address] [facility] [address], [place], [place], [address] [place] [address], tel:[phone] [facility] No Information Mar-3 1-201 0 Shania Donovan. [address] [facility], [place], [address] [place] [address], . tel:[phone] Referring Provider: Zion Montejo, [address] [facility], [place], [address] [place] [address]. tel:[phone] [facility], [address] , [place], [address] [place] [address], tel:[phone] [facility] No Information Mar-3 0-[address] [facility], [address] [facility], [place], [address] [place] [address], tel:[phone] [facility] No Information Mar-1 8-201 0 [place] Sulema. [address] [facility], [place], [address] [place] [address], . tel:[phone] Referring Provider: Sulema Baumaner, [address], [place], [address] [place] [address]. tel:[phone] [facility], [address] [facility], [place], [address] [place] [address], tel:[phone] [facility] No Information Nathaniel-0 6-201 0 [place] Sulema. [address] [facility], [place], [address] [place] [address], . tel:[phone] Referring Provider: Sulema Saravia, [address] [facility], [place], [address] [place] [address]. tel:[phone] [facility], [address] [facility], [place], [address] [place] [address], tel:[phone] [facility] No Information Dec-0 8-200 9 Rani Sulema. [address], [place], [address] [place] [address], . tel:[phone] Referring Provider: Sulema Saravia, [address], [place], [address]. tel:[phone] [facility], [address] [facility], [place], [place], [id number], tel:[phone] [facility] No Information Dec-0 200 9 Saji Veronica. [address], [id number], . tel:[phone] Referring Provider: Jeremías Petersen, [address], [place], [address]. tel:[phone] [facility], [address], [id number], tel:[phone] [facility] No Information Dec-0 9 Saji Veronica. [address], [id number], [place]. tel:[phone] Referring Provider: Jeremías Petersen, [address], [address]. tel:[phone] Office/Outpt E&M Estab Phyllis RAMIREZ, [address], [facility] [address], [place], [place], [id number], tel:[phone] Phyllis RAMIREZ No Information Dec-0 200 9 No Information Referring Provider: Jeremías Petersen, [address], [address]. tel:[phone] [facility], [address], [place], [place], [id number], tel:[phone] [facility] No Information Dec-0 200 9 [facility]. [address], [place], [address] [place] [address], . tel:[phone] Referring Provider: Jeremías Petersen, [address] [facility], [place], [address] [place] [address]. tel:[phone] [facility], [address] , [place], [address] [place] [address], tel:[phone] [facility] No Information 9 Saji Veronica. [address] [facility], [place], [address] [place] [address], . tel:[phone] Referring Provider: Jeremías Petersen, [address], [place], [address] [place] [address]. tel:[phone] Offic/outpt E&m Estab Low-mod [facility], [address] [place] [address], [place], [address] [place] [address], tel:[phone] [facility] No Information 9 Raymond Aburto. [address], [place], [address] [place] [address], . tel:[phone] Referring Provider: Lamonte Torres, [address], [place], [address] [place] [address]. tel:[phone] [facility], [address] [facility], [place], [address] [place] [address], tel:[phone] [facility] No Information 9 Raymond Aburto. [address], [place], [address] [place] [address], . tel:[phone] Referring Provider: Lamonte Torres, [address], [place], [address] [place] [address]. tel:[phone] [facility], [address], [place], [address] [place] [address], tel:[phone] [facility] No Information 9 Raymond Aburto. [address] [place], [place] [address] [facility], [place], [address] [place] [address], . tel:[phone] Referring Provider: Lamonte Torres, [address] [place] [address], [place], [address] [place] [address]. tel:[phone] [facility], [address] [facility], [place], [address] [place] [address], tel:[phone] [facility] No Information 8 Saji Veronica. [address] [place] [address], [address] [place] [address], . tel:[phone] Referring Provider: Jeremías Petersen, [address] [place] [address], [address] [place] [address]. tel:[phone] Offic Cons New/Estab Low Phyllis RAMIREZ, [address], [facility] [address], [place], [place] [id number], tel:[phone] Phyllis RAMIREZ No Information 8 No Information Referring Provider: Jeremías Petersen, [address] [place] [address], [address] [place] [address]. tel:[phone] [facility], [address] [facility], [place], [address] [place] [address], tel:[phone] [facility] No Information 8 Roe Cotto. [address], [place], [address] [place] [address], . tel:[phone] Referring Provider: [place], [address], [place], [address] [place] [address]. tel:[phone] [facility], [address] [place], [place], [id number], tel:[phone] [facility] No Information 8 Saji Veronica. [address], [place], [place], [id number], . tel:[phone] Referring Provider: Jeremías Petersen, [address], [address] [place] [address]. tel:[phone] [facility], [address] [facility], [place], [place], [id number], tel:[phone] [facility] No Information 8 [facility]. [address], [address] [place] [address], . tel:[phone] Referring Provider: Jeremías Petersen, [address], [address] [place] [address]. tel:[phone] [facility], [address], [place], [place], [id number], tel:[phone] [facility] No Information 8 Keagan Oneal. [address], [address] [place] [address], . tel:[phone] Referring Provider: Jeremías Petersen, [address], [address] [place] [address]. tel:[phone] [facility], [address], [place], [place], [id number], tel:[phone] [facility] No Information 8 Saji Veronica. [address], [id number], . tel:[phone] Referring Provider: Jeremías Petersen, [address], [address]. tel:[phone] [facility], [address], [place], [place], [id number], tel:[phone] [facility] No Information 8200 8 Saji Cochran [address], [id number], . tel:[phone] Referring Provider: Jeremías Petersen, [address], [address]. tel:[phone] Family History Family Member Type Diagnosis Age At Onset Father Problem (finding) chronic obstructive jane g disease 82 Mother Problem (finding) Peritonits/ Diverticuli tis 77 Payers Payer name Insurance type Covered alliance party ID Sal espinal(s) Medicare [id number] Mail Hand[employer] Benefit Plan [id number] Social History Type Description Quantity Date Captured Comments Alcohol Use Details Unknown Caffeine Use Details Unknown Tobacco Use Status No Information Smoking Status No Information Sex Male Chief Complaint And Reason For Visit No Information Reason For Referral Reason For Referral No Information History Of Present Illness Encounter Date Complaint History Of Prese nt Illness No Information Functional Status Date Functional Assessmen t No Information Instructions Date Instruction Additional Infor mation No Information Assessments Type Assessment Date No Information Patient Care Teams Name Effective Dates (start - stop) Status Members No Information
[2025-04-27] VITALS (8 sets, daily range): BP systolic 105–135; BP diastolic 42–74; PULSE 47–86; RESP 16–18; TEMP -17.7–36.3; O2SAT 95–100; BMI 20.4
--- NOTE | ~2025-04-27 | CT_ITS ---
EXAMINATION: CT HEAD WITHOUT CONTRAST CLINICAL INFORMATION: Fall with pain and dizziness COMPARISON: March 20, 2022 TECHNIQUE: Contiguous axial imaging was performed from the skull base to vertex without intravenous administration of contrast. This CT examination was performed using dose optimization techniques as appropriate, variously including the following: *Automated exposure control *Adjustment of mA and/or kV according to patient size (this includes techniques or standardized protocols for targeted exams where dose is matched to indication/reason for exam; i.e. extremities or head) *Use of iterative reconstruction technique DLP: 531 mGY*cm FINDINGS: There is no acute ischemic change. Chronic encephalization is stable in the right occipital lobe. Periventricular hypodensities are similar to the prior. There is no intracranial hemorrhage. There is no mass-effect or midline shift. There is mild generalized atrophy. Basal cisterns and ventricles are within normal limits for age/cerebral volume. Orbits are symmetrical and unremarkable. Paranasal sinuses and mastoid air cells are pneumatized. There are no bony abnormalities. CT/CT head/brain wo IV con IMPRESSION: No acute intracranial abnormality. Stable chronic changes. Electronically signed by: Tim Mercado MD 04/27/2025 10:23 AM EDT
--- NOTE | ~2025-04-27 | XR_ITS ---
EXAMINATION: XR HUMERUS RIGHT HISTORY: pain, injury COMPARISON: There are no prior studies available for comparison. FINDINGS: AP and lateral views of the right humerus are submitted. Osseous mineralization is normal. There is no fracture or dislocation. The visualized portions of the shoulder and elbow joint spaces are preserved. The soft tissues are unremarkable. XR/XR humerus RT IMPRESSION: No evidence of fracture of the right humerus. Electronically signed by: Jalen Oliva MD 04/27/2025 09:18 AM EDT
--- NOTE | ~2025-04-27 | XR_ITS ---
EXAMINATION: XR HIP, RIGHT CLINICAL INFORMATION: pain, injury COMPARISON: None available. TECHNIQUE: AP pelvis, and 2 views of the right hip. FINDINGS: No fracture. Alignment is anatomic. Hip joint space is maintained. The soft tissues demonstrate vascular calcifications. XR/XR hip RT w PEL1V IMPRESSION: No acute bony abnormalities of the right hip. Electronically signed by: Pepito Sharif MD 04/27/2025 09:18 AM EDT
--- NOTE | ~2025-04-27 | XR_ITS ---
EXAMINATION: XR CHEST CLINICAL INFORMATION: dizziness COMPARISON: X-ray 07/28/[address] 06/03/2019 TECHNIQUE: 2 views of the chest were obtained. FINDINGS: A mitral valve prosthesis has been inserted since the prior exam. Again seen are multiple calcified granulomas in the lungs. Linear and confluent areas of scarring are again noted in the left apex, right mid and lower lung zones, and minimally in the left lung base, decreased in the right lung and slightly increased in left base. There is no pleural effusion. XR/XR chest 2V IMPRESSION: Chronic scarring and calcified granulomas. Increased vague density in the left lung base is probably related to chronic scarring though early pneumonia is not ruled out. Mitral valve replacement. Electronically signed by: Tim Mercado MD 04/27/2025 10:21 AM EDT
--- NOTE | 2025-04-27 08:34 | ED_ITS ---
HPI - General Adult General Chief complaint: Fall Stated complaint: fall, right arm bleed, Right hip pain Time Seen by Provider: 04/27/25 08:33 Source: patient Mode of arrival: ambulatory Limitations: no limitations History of Present Illness ED Provider: Erum Colbert PA-C HPI narrative: Patient is an 85 year old assigned male at with a history of mitral valve prolapse s/p procedure in [place], pulmonary hypertension, and pulmonary fibrosis presenting to the emergency department today with dizziness and a fall. Patient states that he has been getting dizzy ever since he had his procedure done on his heart and today he got dizzy and fell in his garden, landing on his right hip and right arm. Patient states that he takes furosemide, linsiopril, and eliquis. Patient denies hitting his head or any loss of consciousness. Patient denies any lightheadedness, abdominal pain, nausea, vomiting, fever, chills, blurry vision, double vision, loss of vision, chest pain, difficulty breathing, shortness of breath, back pain, night sweats, pain with urination, increased urinary frequency, increased urinary urgency, blood in his urine or stool, syncope or a near syncopal episode, bowel incontinence, bladder incontinence, or any other complaints at this time. Relieving factors: none Exacerbating factors: none Associated symptoms: denies other symptoms Treatments prior to arrival: none Related Data Home Medications ?Medication ?Instructions ?Recorded ?Confirmed aspirin 81 mg tablet,delayed 81 mg PO DAILY 03/01/25 0 03/01/25 release cholecalciferol (vitamin D3) 25 25 mcg PO DAILY 03/01/25 mcg (1,000 unit) tablet (Vitamin D3) coQ10 (ubiquinol) 200 mg capsule 200 mg PO DAILY 03/0103/01/25 furosemide 20 mg tablet 20 mg PO DAILY 03/01/2502/04 glucosam 750 mg-chondroi 100 1 tab PO DAILY 03/01/25 0 03/01/25 mg-hyalur 1.65 mg-CF borate 108 mg tablet ([facility] Ref[employer]) lisinopril 2.5 mg tablet 2.5 mg PO DAILY 03/01/25 multivitamin with minerals-folic 1 tab PO DAILY 03/01/25 acid 400 mcg-lycopene 370 mcg tablet (One-A-Day Men's 50 Plus) potassium chloride 10 mEq 10 meq PO DAILY 03/01/25 tablet,extended release vitamin B complex 1 tab PO DAILY 03/01/2502/04 Previous Rx's ?Medication ?Instructions ?Recorded apixaban 2.5 mg tablet (Eliquis) 2.5 mg PO BID #180 ta bs 03/02/25 Allergies Allergy/AdvReac Type Severity Reaction Status Date / Time Iodinated Contrast Media Allergy Unknown ANAPHYLAXIS Verified 04/27/25 08:41 (CONTRAST, IV) iodine (IODINE) Allergy Unknown RASH Verified 04/27/25 08:41 Review of Systems 2 Constitutional: Constitutional: Reports no additional constitutional complaints, Denies chills, Denies fever(s) and Denies night sweats Eyes: Eyes: Reports no additional eye complaints, Denies blurry vision, Denies change in vision, Denies diplopia, Denies eye discharge, Denies loss of vision and Denies eye pain ENT: Denies dizziness Cardiovascular: Cardiovascular: Reports no additional cardiovascular complaints, Denies chest pain, Denies lightheadedness, Denies Loss of Consciousness and Denies dyspnea Respiratory: Respiratory: Reports no additional respiratory complaints and Denies dyspnea Gastrointestinal: Gastrointestinal: Reports no additional gastrointestinal complaints, Denies abdominal pain, Denies melena, Denies hematochezia, Denies change in bowel habits and Denies change in stool character Genitourinary: Genitourinary: Reports no additional male genitourinary complaints, Denies hematuria, Denies oliguria, Denies difficulty urinating, Denies dysuria, Denies urinary frequency, Denies urinary hesitancy, Denies urinary incontinence and Denies urinary urgency Musculoskeletal: Musculoskeletal: Reports no additional musculoskeletal complaints, Denies numbness and Denies tingling Comments: Right upper arm pain Right shoulder pain Neurologic: Denies dizziness, Denies loss of vision, Denies numbness and Denies tingling Psychiatric: Psychiatric: Reports no additional psychiatric complaints Endocrine: Endocrine: Reports no additional endocrine complaints Hematologic/Lymphatic: Hematologic/Lymphatic: Reports no additional hematologic/lymphatic complaints Allergic/Immunologic: Allergic/Immunologic: Reports no additional allergic/immunologic complaints PMFSH Past Medical History Attestation statement: The following information was validated with the patient. Source: old records reviewed and nursing notes reviewed Medical History Cognitive impairment Mitral stenosis Surgical History S/P transcatheter mitral valve replacement (TMVR) Social History Social History Household Members: None Housing: House Do you presently have visiting nurse or other home services: No Unable to assess alcohol history related to: Unknown Alcohol intake: unknown Patient Tobacco Use Status: Never used Tobacco Advance Directives: No Advance Directives Information Provided: Yes service: No Physical Exam ED Vital Signs: Vital Signs - 24 hr 04/27/25 08:40 04/27/25 09:19 04/27/25 09:25 Temperature 97.4 F Pulse Rate 50 50 48 L Respiratory Rate 18 18 Blood Pressure 105/50 L 105/50 L 119/42 L Pulse Oximetry 100 100 Oxygen Delivery Method Room Air 04/27/25 09:28 04/27/25 09:29 04/27/25 12:18 Temperature Pulse Rate 47 L 48 L Respiratory Rate 16 Blood Pressure 116/47 L 129/56 L 135/46 L Pulse Oximetry Oxygen Delivery Method 04/27/25 12:18 04/27/25 12:19 Temperature Pulse Rate 86 53 Respiratory Rate Blood Pressure 128/50 L 122/57 L Pulse Oximetry Oxygen Delivery Method BMI result Body Mass Index 20.4 Const General: cooperative, no acute distress, alert and awake Nutritional Appearance: well nourished Orientation/consciousness: patient oriented x3 HENMT Head: Yes normal to inspection and Yes atraumatic Ears: hearing grossly normal bilaterally and external ears normal General nose exam: Normal external nose present, no nasal discharge noted and no epistaxis Face and sinus: Yes normal facial exam, No abrasion and No laceration Mouth: Normal oral and palatal mucosa present, no drooling and no muffled voice Eyes General: appearance normal, both eyes and all related structures Periorbital: periorbital findings normal Eyelids: Yes eyelids normal Conjunctivae: conjunctivae normal Pupils: Equal, round and reactive pupils present EOM: EOMs intact bilaterally Neck Neck: Yes normal visual inspection, Yes full ROM and Yes no lymphadenopathy Resp Effort & Inspection: normal respiratory effort and able to speak in complete sentences Cardio Rate: bradycardic Rhythm: regular rhythm Neuro General: patient oriented x3, moves all extremities and CN's II-XI intact bilaterally Cranial nerves: Yes Equal, round and reactive pupils present Cognition (Neuro): normal cognition Extrem Other: Right posterior arm skin tears - small, no active bleeding General: Yes full ROM and Yes capillary refill normal Psych Appearance: grossly normal Mental Status: mental status grossly normal Affect: normal affect Attitude: cooperative Thought process: Normal thought process present Thought content: Normal thought content present Insight: Good insight present (Psych) Procedures Laceration Laceration 1: Site: upper extremity Side (If applicable): right Size (cm): 1 Description: flap and irregular Depth: simple, single layer Pre-repair: wound explored, irrigated extensively and deep structures intact Skin layer closed with: other (steri strips) Size (cm): other (steri strips) Number of sutures: 2 Technique: other (steri strips) Medical Decision Making Medical Decision Making MDM Narrative: Patient is an 85 year old assigned male at with a history of mitral valve prolapse s/p procedure in [place], pulmonary hypertension, and pulmonary fibrosis presenting to the emergency department today with dizziness and a fall. Patient's physical exam was as noted in the physical exam portion of this note. Patient's blood work was unremarkable. Patient's EKG showed sinus bradycardia. Patient's chest x-ray, right hip x-ray, right humerus x-ray, and head CT showed no acute process. Given the patient is having dizziness and he is bradycardic in the department, I consulted with Dr. Bhatti, the public policy coordinator sales correspondence clerk. He recommended ambulating the patient at a brisk pace and documenting the highest heart rate. This was done and his highest rate was 72. Patient was evaluated by Dr. Bhatti who recommended discharge with follow up on an outpatient basis with his public policy coordinator, Dr. Mendoza, through [facility]. Patient's clinical presentation is most consistent with a trip and fall in the garden and not syncope. I explained my physical exam findings as well as all test results to the patient. I answered all questions asked by the patient. Patient's right upper extremity skin tears could not be fully repaired with steri-strips due to missing skin however, what skin remained was unrolled and secured in placed with 2 total steri strips. I stressed the importance of the patient taking his medication as directed (either prescribed or as the over the counter packaging recommends). I stressed the importance of the patient following up with his primary care provider, his public policy coordinator Dr. Mendoza, and with the wound center to ensure these skin tears heal appropriately. I stressed the importance of the patient returning to the emergency department immediately if he were to develop any dizziness, shortness of breath, difficulty breathing, chest pain, blurry vision, loss of vision, nausea, vomiting, abdominal pain, fever, chills, back pain, or any other complaints. Patient verbalized agreement and understanding with this treatment plan and discharge. Differential Diagnosis Differential Diagnoses: The differential diagnosis associated with the presentation includes Right upper extremity skin tear Fall Right hip pain Admission/Observation Consideration of admission/observation: Escalation of care including admission/observation considered Patient would have been admitted to the hospital had his work up had any findings where hospital admission was appropriate and his clinical presentation warranted hospital admission. Consult Healthcare Provider Management of the patient was discussed with: Medical Pathologist (consulted with the public policy coordinator as noted in the MDM Rationale portion of this note. ) Lab Data [facility] Lab Attestation statement: I reviewed the patient's lab results. My interpretation of these results are in the MDM Rationale portion of this note. 04/27/25 09:48 04/27/25 09:48 Labs: Lab Results 04/27/25 Range/Units 09:48 WBC 4.6 L (4.8-10.8) X10*3/uL RBC 3.80 L (4.60-5.80) X10*6/uL Hgb 12.5 L (14.0-18.0) g/dl Hct 36.6 L (42.0-52.0) % MCV 96.3 (80.0-98.0) fL MCH 32.9 (27.0-33.0) pg MCHC 34.2 (31.0-36.0) g/dl RDW 12.8 (11.0-16.0) % Plt Count 130 L (160-400) X10*3/uL MPV 9.4 (9.4-12.4) fL Immature Gran % (Auto) 0.4 (0.0-0.4) % Neut % (Auto) 72.1 (45-73) % Lymph % (Auto) 16.9 L (20-40) % Campbell % (Auto) 7.4 (2-11) % Eos % (Auto) 1.9 (0-4) % Baso % (Auto) 1.3 (0-2) % Lymph # (Auto) 0.8 L (1.2-4.9) X10*3/uL Campbell # (Auto) 0.3 (0.1-1.2) X10*3/uL Eos # (Auto) 0.1 (0.0-0.4) X10*3/uL Baso # (Auto) 0.1 (0.0-0.2) X10*3/uL Abs Immat Gran (auto) 0.02 (0.00-0.03) X10*3/uL Absolute Neuts (auto) 3.3 (2.0-8.3) x10*3/uL Absolute Nucleated RBC 0.000 (0.0-0.012) X10*3/uL Nucleated RBC % (auto) 0.0 (0.0-0.2) /100WBC Sodium 140 (135-145) mmol/L Potassium 4.5 (3.3-5.1) mmol/L Chloride 108 (96-108) mmol/L Carbon Dioxide 27 (22-29) mmol/L Anion Gap 10 L (12-20) BUN 27 H (9-16) mg/dL Creatinine 0.93 (0.5-1.4) mg/dL Estim Creat Clear Calc 50.8 Estimated GFR > 60 Random Glucose 84 (60-115) mg/dL Calcium 9.2 (8.4-10.2) mg/dL Total Bilirubin 1.2 H (0.0-1.0) mg/dL AST 25 (5-37) U/L ALT 15 (0-40) U/L Alkaline Phosphatase 50 (39-117) U/L Total Protein 7.1 (6.5-8.0) g/dL Albumin 4.4 (3.5-5.0) g/dL Independent Interpretation I performed an independent interpretation of an: EKG, Plain X-Ray and CT Scan Interpretation: My interpretation is in agreement with the radiologist's impression of these imaging studies. L EXAMINATION: XR CHEST CLINICAL INFORMATION: dizziness COMPARISON: X-ray 07/28/[address] 06/03/2019 TECHNIQUE: 2 views of the chest were obtained. FINDINGS: A mitral valve prosthesis has been inserted since the prior exam. Again seen are multiple calcified granulomas in the lungs. Linear and confluent areas of scarring are again noted in the left apex, right mid and lower lung zones, and minimally in the left lung base, decreased in the right lung and slightly increased in left base. There is no pleural effusion. XR/XR chest 2V IMPRESSION: Chronic scarring and calcified granulomas. Increased vague density in the left lung base is probably related to chronic scarring though early pneumonia is not ruled out. Mitral valve replacement. Electronically signed by: Tim Mercado MD 04/27/2025 10:21 AM EDT RP Dictated By: Tim Mercado MD Signed By: Electronically signed by Tim Mercado MD 04/27/25 1021 Report Number: [id number]: Total DLP = 0.00 mGy-cm EXAMINATION: CT HEAD WITHOUT CONTRAST CLINICAL INFORMATION: Fall with pain and dizziness COMPARISON: March 20, 2022 TECHNIQUE: Contiguous axial imaging was performed from the skull base to vertex without intravenous administration of contrast. This CT examination was performed using dose optimization techniques as appropriate, variously including the following: *Automated exposure control *Adjustment of mA and/or kV according to patient size (this includes techniques or standardized protocols for targeted exams where dose is matched to indication/reason for exam; i.e. extremities or head) *Use of iterative reconstruction technique DLP: 531 mGY*cm FINDINGS: There is no acute ischemic change. Chronic encephalization is stable in the right occipital lobe. Periventricular hypodensities are similar to the prior. There is no intracranial hemorrhage. There is no mass-effect or midline shift. There is mild generalized atrophy. Basal cisterns and ventricles are within normal limits for age/cerebral volume. Orbits are symmetrical and unremarkable. Paranasal sinuses and mastoid air cells are pneumatized. There are no bony abnormalities. CT/CT head/brain wo IV con IMPRESSION: No acute intracranial abnormality. Stable chronic changes. Electronically signed by: Tim Mercado MD 04/27/2025 10:23 AM EDT Dictated By: Tim Mercado MD Signed By: Electronically signed by Tim Mercado MD 04/27/25 1023 EXAMINATION: XR HIP, RIGHT CLINICAL INFORMATION: pain, injury COMPARISON: None available. TECHNIQUE: AP pelvis, and 2 views of the right hip. FINDINGS: No fracture. Alignment is anatomic. Hip joint space is maintained. The soft tissues demonstrate vascular calcifications. XR/XR hip RT w PEL1V IMPRESSION: No acute bony abnormalities of the right hip. Electronically signed by: Pepito Sharif MD 04/27/2025 09:18 AM [employer] Dictated By: Pepito Sharif MD Signed By: Electronically signed by Pepito Sharif MD 04/27/25 0918 EXAMINATION: XR HUMERUS RIGHT HISTORY: pain, injury COMPARISON: There are no prior studies available for comparison. FINDINGS: AP and lateral views of the right humerus are submitted. Osseous mineralization is normal. There is no fracture or dislocation. The visualized portions of the shoulder and elbow joint spaces are preserved. The soft tissues are unremarkable. XR/XR humerus RT IMPRESSION: No evidence of fracture of the right humerus. Electronically signed by: Jalen Oliva MD 04/27/2025 09:18 AM EDT RP Dictated By: Jalen Oliva MD Signed By: Electronically signed by Jalen Oliva MD 04/27/25 0918 I independently interpreted this EKG and am in agreement with the below findings: Vent. Rate: 47 BPM Atrial Rate: 47 BPM P-R Int: 320 ms QRS Dur: 146 ms QT Int: 504 ms P-R-T Axes: 71 -50 -9 degrees QTcB Int: 446 ms Sinus bradycardia with 1st degree A-V block Right bundle branch block Left anterior fascicular block Bifascicular block When compared with ECG of 20-Mar-2025 13:19, Criteria for Septal infarct are no longer Present T wave inversion now evident in Inferior leads DD/ 1012 Radiology Impression Discussion of test interpretation with radiology: I have reviewed the radiologist's reading. Critical Care Time Critical Care Time Critical Care Time: Yes Total Critical Care Time: 34 Attestation: I spent 34 minutes of Critical Care Time with this patient. This does not include time spent on separately reported billable procedures. Discharge Plan Discharge Clinical Impression: Fall, Skin tear of right upper extremity, Bradycardia Patient Disposition: Home, Self-Care Instructions: Fall Prevention for Older Adults (ED), Bradycardia (ED), Skin Adhesive Strips (ED) Additional Instructions: Follow up with your public policy coordinator, Dr. Mendoza as directed. Follow up with the wound center to ensure your skin tears are healing well. The steri-strips will fall off on their own. Follow up with your primary care provider. Return to the emergency department immediately if your symptoms worsen or if you develop any numbness, tingling, dizziness, shortness of breath, difficulty breathing, chest pain, blurry vision, loss of vision, nausea, vomiting, abdominal pain, fever, chills, back pain, or any other complaints. Please see the information below about our Patient Portal. If you are not yet enrolled in the [facility] Patient Portal, you will receive an enrollment email invitation following your visit to any [facility] [place] setting. You may also self-enroll in the Patient Portal by visiting our website: [email or web address] The following information is required to access the Patient Portal: - Your [facility] Medical Record Number - Your personal home email address (must match what is in your electronic medical record, Registration staff can assist with this) - Name - Date of Capabilities of the Patient Portal: - Message some providers - View upcoming appointments - Access your health summary, medical history, and visit history - View current conditions and allergies - View procedure and lab results - View your medications, including guidelines, side effects, and precautions - Complete pre-appointment questionnaires requested by your provider - Ready summary reports of your office visits and procedures To access the Patient Portal Mobile Liz[employer], follow these directions: - Search OnShift in the [employer] Store or [employer] Store - Download the Lizbeth - Search for [facility] - Enter your login/password Prescriptions: No Action potassium chloride 10 mEq tablet extended release 10 meq PO DAILY furosemide 20 mg tablet 20 mg PO DAILY lisinopril 2.5 mg tablet 2.5 mg PO DAILY aspirin 81 mg Tablet,Delayed Release (Dr/Ec) 81 mg PO DAILY vitamin B complex Tablet 1 tab PO DAILY cholecalciferol (vitamin D3) [Vitamin D3] 25 mcg (1,000 unit) Tablet 25 mcg PO DAILY [employer] [facility] 750 mg-100 mg- 1.65 mg-108 mg Tablet 1 tab PO DAILY One-A-Day Men's 50 Plus 400-370 mcg Tablet 1 tab PO DAILY coQ10 (ubiquinol) 200 mg Capsule 200 mg PO DAILY Eliquis 2.5 mg Tablet 2.5 mg PO BID Qty: 180 0RF Referrals: [facility] Management [Provider Group] Liliya Holden MD [Primary Care Provider, Medical] Print Language: Filipino
--- OUTSIDE RECORDS SUMMARY | 2025-04-27 09:10 | XMS_ITS | Clinical Summary ---
Author Organization [facility] Address [address] [place] [phone] Phone Care Team Providers Care Wireless Internet Installer Name Role Phone Liliya Holden MD Primary Care Provider [phone] Allergies Active Allergy Reactions Criticality Noted Date Comments Iodinated Contrast Media Hives 07/20/2021 Medications therapeutic multivitamin tablet Take 1 tablet by mouth daily. Active biotin 10 mg Tab Take by mouth daily. Active omega-3 fatty acids (FISH OIL CONCENTRATE) 1,000 mg Cap Take by mouth. Active b complex vitamins capsule Take 1 capsule by mouth daily. Active magnesium oxide 250 mg (150 mg elemental) Tab Take 250 mg by mouth daily. Active GINSENG ORAL Take by mouth. Active turmeric 400 mg Cap Take by mouth. Active famotidine (PEPCID) 10 MG tablet Take 10 mg by mouth 2 (two) times a day. Active glucosamine/msm/c hondroit sulf (GLUCOSAMINE 2TXN-YSV-AEKTIRRE T ORAL) Take by mouth. Active Social History Tobacco Use Types Packs/Day Years Used Date Smoking Tobacco: Former Smokeless Tobacco: Never Comments:quit 50 yrs ago Alcohol Use Standard Drinks/Week Comments Never 0 (1 standard drink = 0.6 oz pur e alcohol) Education Answer Date Recorded Are you interested in more education? Not on anthony e 02/01/2023 Are you concerned about learning? Not on file 02/01/2023 No 02/01/2023 No 02/01/2023 Digital Access Answer Date Recorded No 03/04/2023 No 03/04/2023 Reliable internet access at home? Not on file 03/04/2023 Device with a working camera? Not on file Sex and Gender Information Value Date Recorded Sex Assigned at Not on file Legal Sex Male 10:30 AM EDT Gender Identity Not on file Sexual Orientation Not on file Last Filed Vital Signs Vital Sign Reading Time Taken Comments Blood Pressure 100/50 07/20/2021 1:02 PM EDT Pulse 56 07/20/2021 1:02 PM EDT Temperature - - Respiratory Rate - - Oxygen Saturation 100% 07/20/2021 1:02 PM EDT Inhaled Oxygen Concentration - - Weight - - Height - - Body Mass Index - - Plan of Treatment Health Maintenance Due Date Last Done Comments DEPRESSION SCREENING 1953 PNEUMOCOCCAL VACCINES (50+ years) (1 of 1 - PCV) 1991 ZOSTER VACCINES (1 of 2) 1991 RSV VACCINE (1 - 1-dose 75+ series) 02/12/2016 COVID-19 VACCINE (3 - 2023-2 5 season) 2024 01/03/2022, 07/31/2021 Adult Td,Tdap Booster 04/01/2029 04/01/2019 , 07/15/2013 HEPATITIS A VACCINES Aged Out No long er eligible based on patient's age to complete this topic HIB VACCINES Aged Out No longer eligi ble based on patient's age to complete this topic MENINGOCOCCAL VACCINES (ACWY) Aged Out No longer eligible based on patient's age to complete this topic MENINGOCOCCAL VACCINES (B) Aged Out N o longer eligible based on patient's age to complete this topic Medical Devices Not on file Insurance MEDICARE PART A & B [facility] EPO MEDIC[facility] & [facility] POS EPO MEDICARE PART [facility] & [facility] POS EPO MEDIC[facility] PART [facility] & [facility] POS EPO MEDIC[facility] PART A & [facility] POS EPO MEDIC[facility] PART A & [facility] POS EPO MEDICARE PART A & B [facility] POS EPO MEDICARE PART A & B [employer] POS EPO Care Teams Wireless Internet Installer Relationship Specialty Start Date End Date Liliya Holden MD [address] [place] [id number] [email or web address] PCP - General Internal Medicine 06/12/21 Additional Source Comments The information contained in this document represents components of the legal health record. It is not the complete legal health record.[facility]
--- OUTSIDE RECORDS SUMMARY | 2025-04-27 09:10 | XMS_ITS | Clinical Summary ---
Author Organization [facility] it[facility] Address [address] [place] [address] Care Team Providers Care Silverware Supervisor Name Role Phone Liliya Holden MD Primary Care Provider [phone] Family History Medical History Relation Name Comments Stroke Aunt Stroke Uncle Relation Name Status Comments Aunt Alive Uncle Alive Social History Tobacco Use Types Packs/Day Years Used Date Smoking Tobacco: Former Smokeless Tobacco: Never Alcohol Use Standard Drinks/Week Comments Not Currently 0 (1 standard drink = 0.6 oz pur e alcohol) Sex and Gender Information Value Date Recorded Sex Assigned at Not on file Legal Sex Male 2:17 PM EST Gender Identity Not on file Sexual Orientation Not on file Obstetrics History Last Filed Vital Signs Vital Sign Reading Time Taken Comments Blood Pressure 120/62 06/12/2022 11:18 AM EDT Sitting L Arm Pulse 55 06/12/2022 11:18 AM EDT Temperature - - Respiratory Rate - - Oxygen Saturation - - Inhaled Oxygen Concentration - - Weight 60 kg (132 lb 3.2 oz) 06/12/2022 11:18 AM EDT Height 172.7 cm (5' 8 ) 06/12/2022 11:1 8 AM EDT Body Mass Index 20.1 06/12/2022 11:18 AM EDT Plan of Treatment Health Maintenance Due Date Last Done Comments DTaP,Tdap,and Td Vaccines (1 - Tdap) 02/12/1960 Pneumococcal Vaccine: 50+ Ye ars (1 of 1 - PCV) 1991 Zoster Vaccines (1 of 2) 1991 RSV Immunization Adult Patie nts (1 - 1-dose 75+ series) 02/12/2016 Cholesterol Screening (Lipid Panel) 09/04/2022 Falls Risk Assessment 09/04/2022 Social Influencers of Health Screening 09/04/2022 COVID-19 Vaccine (2023-2 5 season) 2024 Depression Screening 10/06/2024 Influenza Vaccine (#1) 2025 HIB Vaccines Aged Out No longer eligi ble based on patient's age to complete this topic HPV Vaccines Aged Out No longer eligi ble based on patient's age to complete this topic Hepatitis A Vaccines Aged Out No long er eligible based on patient's age to complete this topic Hepatitis B Vaccines Aged Out No long er eligible based on patient's age to complete this topic IPV Vaccines Aged Out No longer eligi ble based on patient's age to complete this topic MMR Vaccines Aged Out No longer eligi ble based on patient's age to complete this topic Meningococcal ACWY Vaccine Aged Out N o longer eligible based on patient's age to complete this topic Meningococcal B Vaccine Aged Out No l onger eligible based on patient's age to complete this topic RSV Immunization Patients Un manuelito 20 months Aged Out No longer eligible b ased on patient's age to complete this topic Varicella Vaccines Aged Out No longer eligible based on patient's age to complete this topic Care Teams Silverware Supervisor Relationship Specialty Start Date End Date Liliya Holden MD PCP - General 04/12/19
--- NOTE | 2025-04-27 09:45 | ECG_ITS ---
Test Reason : DIZZINESS Blood Pressure : */* mmHG Vent. Rate : 47 BPM Atrial Rate : 47 BPM P-R Int : 320 ms QRS Dur : 146 ms QT Int : 504 ms P-R-T Axes : 71 -50 -9 degrees QTcB Int : 446 ms Sinus bradycardia with 1st degree A-V block Right bundle branch block Left anterior fascicular block Bifascicular block Abnormal ECG When compared with ECG of 20-Mar-2025 13:19, Criteria for Septal infarct are no longer Present T wave inversion now evident in Inferior leads Referred By: Erum Colbert Electronically Signed By: Stanford Bhatti
--- NOTE | 2025-04-27 09:47 | PC.NURSE ---
pt connected to full monitor- VS except HR 40's Pt also states he continues to be dizzy at home and is hoping they find out why Provider aware.
[2025-04-27 09:52] LABS: MANUAL DIFF FLAG NO
[2025-04-27 09:53] LABS: Hematocrit 36.6 % (42.0-52.0); Hemoglobin 12.5 g/dl (14.0-18.0); Imm Gran Abs Auto 0.02 X10*3/uL (0.00-0.03); Imm Gran Pct Auto 0.4 % (0.0-0.4); Lymphocytes Absolute Auto 0.8 X10*3/uL (1.2-4.9); Mean Corpuscular HGB Conc 34.2 g/dl (31.0-36.0); Mean Corpuscular Hemoglobin 32.9 pg (27.0-33.0); Mean Corpuscular Volume 96.3 fL (80.0-98.0); NRBC Abs Auto 0.000 X10*3/uL (0.0-0.012); NRBC Pct Auto 0.0 /100WBC (0.0-0.2); Platelet Count 130 X10*3/uL (160-400); Red Blood Count 3.80 X10*6/uL (4.60-5.80); White Blood Count 4.6 X10*3/uL (4.8-10.8)
[2025-04-27 10:10] LABS: Alanine Aminotransferase 15 U/L (0-40); Albumin Level 4.4 g/dL (3.5-5.0); Alkaline Phosphatase 50 U/L (39-117); Anion Gap 10 (12-20); Aspartate Amino Transferase 25 U/L (5-37); Blood Urea Nitrogen 27 mg/dL (9-16); Calcium 9.2 mg/dL (8.4-10.2); Carbon Dioxide 27 mmol/L (22-29); Chloride 108 mmol/L (96-108); Creatinine Clr Calc Pharmacy 50.8; Estimated Glomerular Filt Rate > 60; Potassium 4.5 mmol/L (3.3-5.1); Sodium 140 mmol/L (135-145); Total Protein 7.1 g/dL (6.5-8.0)
--- NOTE | 2025-04-27 15:21 | PM.CNCAR ---
History of Present Illness History of Present Illness Date of Service: 04/27/25 Requesting physician: Erum Colbert Chief complaint: fall, right arm bleed, Right hip pain Narrative: Pleasant 85-year-old gentleman who has background history of mitral valve regurgitation status post mitral valve replacement in [place] as part of a clinical trial where minimally invasive surgery was done. Details are unclear to me. He has been doing fine and walking 3 miles per day. He presented to us in February with multiple strokes including cerebellar strokes. 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 Hughes. He is presenting now after feeling dizzy and falling. He is saying from time to time he feels dizzy and lightheaded. Today he was walking and he turned and his foot got stuck and he had a mechanical fall hitting his right arm and hip. He did not have any syncope and denies any syncope in the past. His EKGs showing sinus bradycardia with first-degree AV block, right bundle-branch block and left anterior fascicular block. [facility] Past Medical History Medical History Cognitive impairment Mitral stenosis Surgical History Surgical History S/P transcatheter mitral valve replacement (TMVR) Social History Social History Household Members: None Housing: House Do you presently have visiting nurse or other home services: No Unable to assess alcohol history related to: Unknown Alcohol intake: unknown Patient Tobacco Use Status: Never used Tobacco Advance Directives: No Advance Directives Information Provided: Yes service: No Meds Allergies Allergy/AdvReac Type Severity Reaction Status Date / Time Iodinated Contrast Media Allergy Unknown ANAPHYLAXIS Verified 04/27/25 08:41 (CONTRAST, IV) iodine (IODINE) Allergy Unknown RASH Verified 04/27/25 08:41 Home Medications ?Medication ?Instructions ?Recorded ?Confirmed ?Last Taken ?Type aspirin 81 mg tablet,delayed 81 mg PO DAILY 03/01/25 03/01/25 Unknown History release cholecalciferol (vitamin D3) 25 25 mcg PO DAILY 03/01/25 03/01/25 Unknown History mcg (1,000 unit) tablet (Vitamin D3) coQ10 (ubiquinol) 200 mg capsule 200 mg PO DAILY 03/01/25 03/01/25 Unknown History furosemide 20 mg tablet 20 mg PO DAILY 03/01/25 03/01/25 Unknown History glucosam 750 mg-chondroi 100 1 tab PO DAILY 03/01/25 03/01/25 Unknown History mg-hyalur 1.65 mg-CF borate 108 mg tablet ([employer]) lisinopril 2.5 mg tablet 2.5 mg PO DAILY 03/01/25 03/01/25 Unknown History multivitamin with minerals-folic 1 tab PO DAILY 03/01/25 03/01/25 Unknown History acid 400 mcg-lycopene 370 mcg tablet (One-A-Day Men's 50 Plus) potassium chloride 10 mEq 10 meq PO DAILY 03/01/25 03/01/25 Unknown History tablet,extended release vitamin B complex 1 tab PO DAILY 03/01/25 03/01/25 Unknown History Physical Exam Vital Signs: Vital Signs: Last Vital Signs Temp 97.4 F 04/27/25 09:19 Pulse 53 04/27/25 12:19 Resp 16 04/27/25 09:29 BP 122/57 L 04/27/25 12:19 Pulse Ox 100 04/27/25 09:19 O2 Del Method Room Air 04/27/25 08:40 BMI result Body Mass Index 20.4 GENERAL APPEARANCE: in no acute distress, pleasant. NECK: no carotid bruit, no jugular venous distention. SKIN: no suspicious lesions, warm and dry. HEART: Soft holosystolic murmur at the apex, LUNGS: clear to auscultation bilaterally. ABDOMEN: soft, nontender. EXTREMITIES: no edema. PERIPHERAL PULSES: equal. NEUROLOGIC: No gross deficits, AAO X 3 Objective Labs and Meds 04/27/25 09:48 04/27/25 09:48 Lab results: Laboratory Results - last 24 hr 04/27/25 09:48 WBC 4.6 L RBC 3.80 L Hgb 12.5 L Hct 36.6 L MCV 96.3 MCH 32.9 MCHC 34.2 RDW 12.8 Plt Count 130 L MPV 9.4 Immature Gran % (Auto) 0.4 Neut % (Auto) 72.1 Lymph % (Auto) 16.9 L Norman % (Auto) 7.4 Eos % (Auto) 1.9 Baso % (Auto) 1.3 Lymph # (Auto) 0.8 L Norman # (Auto) 0.3 Eos # (Auto) 0.1 Baso # (Auto) 0.1 Abs Immat Gran (auto) 0.02 Absolute Neuts (auto) 3.3 Absolute Nucleated RBC 0.000 Nucleated RBC % (auto) 0.0 Sodium 140 Potassium 4.5 Chloride 108 Carbon Dioxide 27 Anion Gap 10 L BUN 27 H Creatinine 0.93 Estim Creat Clear Calc 50.8 Estimated GFR > 60 Random Glucose 84 Calcium 9.2 Total Bilirubin 1.2 H AST 25 ALT 15 Alkaline Phosphatase 50 Total Protein 7.1 Albumin 4.4 Imaging Radiologist's impression: Impressions Humerus X-Ray 04/27/25 08:07 IMPRESSION: No evidence of fracture of the right humerus. Electronically signed by: Jalen Oliva MD 04/27/2025 09:18 AM EDT RP Hip/Pelvis X-Ray 04/27/25 08:12 IMPRESSION: No acute bony abnormalities of the right hip. Electronically signed by: Pepito Sharif MD 04/27/2025 09:18 AM EDT RP Head CT 04/27/25 08:56 IMPRESSION: No acute intracranial abnormality. Stable chronic changes. Electronically signed by: Tim Mercado MD 04/27/2025 10:23 AM EDT Chest X-Ray 04/27/25 08:58 IMPRESSION: Chronic scarring and calcified granulomas. Increased vague density in the left lung base is probably related to chronic scarring though early pneumonia is not ruled out. Mitral valve replacement. Electronically signed by: Tim Mercado MD 04/27/2025 10:21 AM EDT Assessment and Plan (1) Bradycardia: Status: Acute (2) Fall: Status: Acute Plan Pleasant 85 year gentleman presenting with mechanical fall. 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 He ambulated in the ER in his heart rate went from 50s to 70s. He did not have any symptoms with ambulation. He has been walking every day up to 3 miles per day. This presentation does not appear to be syncope and he had a mechanical fall clearly. He does have conduction system disease which is advanced. In the setting of syncope I would have considered discussion for permanent pacemaker placement. He has a implantable loop recorder and he will transmit this information to his primary boatbuilder wood Dr. Esa Mendoza. I will message his office and will make sure there was no advanced block which led to him falling. Otherwise he appears to be clinically stable and can potentially go home. Thank you for allowing me to participate in the care of your patient. Please feel free to contact me if you have any questions. Procedures Date of Service Date of Service: 04/27/25
== END 2025-04-27 15:46 | disposition home or self-care (01) ==
PROVIDERS: Physician Assistant Medical; Emergency Provider Emergency Medicine; PCP Internal Medicine
DX: S41.111A Laceration without foreign body of right upper arm, initial encounter (principal); R00.1 Bradycardia, unspecified; M25.551 Pain in right hip; R07.89 Other chest pain; R51.9 Headache, unspecified; W45.8XXA Other foreign body or object entering through skin, initial encounter; Y93.9 Activity, unspecified; Y99.8 Other external cause status; Y92.9 Unspecified place or not applicable; Z79.899 Other long term (current) drug therapy
CPT/HCPCS: 36415; 70450; 71046; 73060; 73502; 80053; 85025; 93005; 99284

== ENCOUNTER → 2025-04-27 08:40 | Outpatient (BNV) | payer MEDICARE, SELFPAY | PROVIDERS: PCP Internal Medicine; Visit Provider Radiology Diagnostic Radiology | DX: R42 Dizziness and giddiness (principal); M25.551 Pain in right hip; M79.621 Pain in right upper arm | CPT/HCPCS: 70450; 71046; 73060; 73502 ==

== ENCOUNTER → 2025-04-27 08:48 | Outpatient (BNV) | payer MEDICARE, SELFPAY | PROVIDERS: Emergency Provider Emergency Medicine; PCP Internal Medicine; Visit Provider Internal Medicine Cardiovascular Disease | DX: R00.1 Bradycardia, unspecified (principal); W19.XXXA Unspecified fall, initial encounter | CPT/HCPCS: 93010; 99283 ==

== ENCOUNTER 2025-04-30 07:01 | Emergency (ER) | payer MEDICARE, SELFPAY ==
--- OUTSIDE RECORDS SUMMARY | 2010-01-03 05:15 | XMS_ITS | Continuity of Care Document ---
Author Organization [facility] Address [address] [facility] [address] [place] [address] Phone Care Team Providers Care Pricing Strategist Name Role Phone Zion Jauregui MD Unavailable [...] Diagnoses Date Provider Providers Copied on Encounter [facility], [address] [facility] [address], [place], [place], [address] [place] [address], tel:[phone] [facility] No Information Mar-3 1-201 0 Shania Donovan. [address] [facility], [place], [place], [address] [place] [address], . tel:[phone] Referring Provider: Zion Montejo, [address] [facility], [place], [address] [place] [address]. tel:[phone] [facility], [address] [facility] [address] , [place], [address] [place] [address], tel:[phone] [facility] No Information Mar-3 0-[address] [facility], [address] [facility], [place], [address] [place] [address], tel:[phone] [facility] No Information Mar-1 8-201 0 Alabaster Sulema. [address] [facility], [place], [address] [place] [address], . tel:[phone] Referring Provider: Sulema Baumaner, [address], [place], [address] [place] [address]. tel:[phone] [facility], [address] [facility], [place], [address] [place] [address], tel:[phone] [facility] No Information Nathaniel-0 6-201 0 Alabaster Sulema. [address] [facility], [place], [address] [place] [address], . tel:[phone] Referring Provider: Sulema Saravia, [address] [facility], [place], [address] [place] [address]. tel:[phone] [facility], [address] [facility], [place], [address] [place] [address], tel:[phone] [facility] No Information Dec-0 8-200 9 Rani Sulema. [address], [place], [address] [place] [address], . tel:[phone] Referring Provider: Sulema Saravia, [address], [place], [address]. tel:[phone] [facility], [address] [facility], [place], [place], [id number], tel:[phone] [facility] No Information Dec-0 200 9 Saji Veronica. [address], [id number], . tel:[phone] Referring Provider: Jeremías Petersen, [address], [place], [address]. tel:[phone] [facility], [address], [id number], tel:[phone] [facility] No Information Dec-0 9 Saji Veronica. [address], [id number], [place]. tel:[phone] Referring Provider: Jeremías Petersen, [address], [address]. tel:[phone] Office/Outpt E&M Estab Phyllis RAMIREZ, [address], [facility] [address], [place], [place], [id number], tel:[phone] Phyllis RAMIREZ No Information Dec-0 200 9 No Information Referring Provider: Jeremías Petersen, [address], [address]. tel:[phone] [facility], [address], [place], [place], [id number], tel:[phone] [facility] No Information Dec-0 200 9 [facility]. [address], [place], [address] [place] [address], . tel:[phone] Referring Provider: Jeremías Petersen, [address] [facility], [place], [address] [place] [address]. tel:[phone] [facility], [address] [facility] , [place], [address] [place] [address], tel:[phone] [facility] No Information 9 Saji Veronica. [address] [facility], [place], [address] [place] [address], . tel:[phone] Referring Provider: Jeremías Petersen, [address], [place], [address] [place] [address]. tel:[phone] Offic/outpt E&m Estab Low-mod [facility], [address] [place] [address], [place], [address] [place] [address], tel:[phone] [facility] No Information 9 Raymond Aburto. [address], [place], [address] [place] [address], . tel:[phone] Referring Provider: Lamonte Torres, [address], [place], [address] [place] [address]. tel:[phone] [facility], [address] [facility], [place], [address] [place] [address], tel:[phone] [facility] No Information 9 Raymond Aburto. [address], [place], [address] [place] [address], . tel:[phone] Referring Provider: Lamonte Torres, [address], [place], [address] [place] [address]. tel:[phone] [facility], [address], [place], [address] [place] [address], tel:[phone] [facility] No Information 9 Raymond Aburto. [address] [place] [address]way [facility], [place], [address] [place] [address], . tel:[phone] Referring Provider: Lamonte Torres, [address] [place] [address], [place], [address] [place] [address]. tel:[phone] [facility], [address] [facility], [place], [address] [place] [address], tel:[phone] [facility] No Information 8 Saji Veronica. [address] [place] [address], [address] [place] [address], . tel:[phone] Referring Provider: Jeremías Petersen, [address] [place] [address], [address] [place] [address]. tel:[phone] Offic Cons New/Estab Low Phyllis RAMIREZ, [address], [facility] [address], [place], [place], [id number], tel:[phone] Phyllis RAMIREZ No Information 8 No Information Referring Provider: Jeremías Petersen, [address] [place] [address], [address] [place] [address]. tel:[phone] [facility], [address] [facility], [place], [address] [place] [address], tel:[phone] [facility] No Information 8 Roe Cotto. [address], [place], [address] [place] [address], . tel:[phone] Referring Provider: [place], [address], [place], [address] [place] [address]. tel:[phone] [facility], [address] [place], [place], [id number], tel:[phone] [facility] No Information 8 Saji Veronica. [address], [place], [place], [id number], . tel:[phone] Referring Provider: Jeremías Petersen, [address], [address] [place] [address]. tel:[phone] [facility], [address] [facility], [place], [place], [id number], tel:[phone] [facility] No Information 8 [facility]. [address], [address] [place] [address], . tel:[phone] Referring Provider: Jeremías Petersen, [address], [address] [place] [address]. tel:[phone] [facility], [address], [place], [place], [id number], tel:[phone] [facility] No Information 8 Keagan Oneal. [address], [address] [place] [address], . tel:[phone] Referring Provider: Jeremías Petersen, [address], [address] [place] [address]. tel:[phone] [facility], [address], [place], [place], [id number], tel:[phone] [facility] No Information 8 Saji Veronica. [address], [id number], . tel:[phone] Referring Provider: Jeremías Petersen, [address], [address]. tel:[phone] [facility], [address], [place], [place], [id number], tel:[phone] [facility] No Information 8200 8 Saji Cochran [address], [id number], . tel:[phone] Referring Provider: Jeremías Petersen, [address], [address]. tel:[phone] Family History Family Member Type Diagnosis Age At Onset Father Problem (finding) chronic obstructive jane g disease 82 Mother Problem (finding) Peritonits/ Diverticuli tis 77 Payers Payer name Insurance type Covered green party ID Sal espinal(s) Medicare [id number] [employer] Benefit Plan [id number] Social History Type Description Quantity Date Captured [...]
[2025-04-30 07:06] VITALS: BP 135/49; PULSE 52; RESP 16; TEMP 36.6; O2SAT 99; BMI 19.9
--- NOTE | 2025-04-30 07:24 | ED.WOUNDLAC ---
HPI - Wound/Laceration General Chief Complaint: General Medical Stated Complaint: Bandage removal Time Seen by Provider: 04/30/25 07:20 Source: patient and old records reviewed Mode of arrival: ambulatory Limitations: no limitations History of Present Illness ED Provider: BELEN PORTILLO narrative: 85 yo male with PMH of postural hypotension, MV prolapse seen here 04/27 s/p fall and RUE skin tears. He tried to call VNA himself but no response. He cannot change the bandages himself. He reports he has not changed the dressing. No new injuries, no complaints, no signs of infection. He is here for help with dressing changes. Onset (ago): day(s) (04/27) Extremity Location: right: arm Place: home Patient tetanus UTD: Yes Context: accidental Associated symptoms: none Treatments prior to arrival: bandage Related Data Home Medications ?Medication ?Instructions ?Recorded ?Confirmed aspirin 81 mg tablet,delayed 81 mg PO DAILY 03/01/25 03/01/25 release cholecalciferol (vitamin D3) 25 25 mcg PO DAILY 03/01/25 03/01/25 mcg (1,000 unit) tablet (Vitamin D3) coQ10 (ubiquinol) 200 mg capsule 200 mg PO DAILY 03/01/25 03/01/25 furosemide 20 mg tablet 20 mg PO DAILY 03/01/25 03/01/25 glucosam 750 mg-chondroi 100 1 tab PO DAILY 03/01/25 03/01/25 mg-hyalur 1.65 mg-CF borate 108 mg tablet ([facility] e-Tag) lisinopril 2.5 mg tablet 2.5 mg PO DAILY 03/01/25 03/01/25 multivitamin with minerals-folic 1 tab PO DAILY 03/01/25 03/01/25 acid 400 mcg-lycopene 370 mcg tablet (One-A-Day Men's 50 Plus) potassium chloride 10 mEq 10 meq PO DAILY 03/01/25 03/01/25 tablet,extended release vitamin B complex 1 tab PO DAILY 03/01/25 03/01/25 Previous Rx's ?Medication ?Instructions ?Recorded apixaban 2.5 mg tablet (Eliquis) 2.5 mg PO BID #180 tabs 03/02/25 Allergies Allergy/AdvReac Type Severity Reaction Status Date / Time Iodinated Contrast Media Allergy Unknown ANAPHYLAXIS Verified 04/30/25 07:07 (CONTRAST, IV) iodine (IODINE) Allergy Unknown RASH Verified 04/30/25 07:07 Review of Systems Review of Systems: Constitutional : No Fever, No Chills, Cardiovascular : No Chest Pain, No SOB Respiratory : No Dyspnea Gastrointestinal : No abdominal pain Musculoskeletal : No Joint Swelling Skin : No rash, positive skin laceration Yes all other systems are reviewed and are negative [facility] Past Medical History Attestation statement: The following information was validated with the patient. Source: old records reviewed Medical History Cognitive impairment Mitral stenosis Surgical History S/P transcatheter mitral valve replacement (TMVR) Social History Social History Household Members: None Housing: House Do you presently have visiting nurse or other home services: No Unable to assess alcohol history related to: Unknown Alcohol intake: unknown Patient Tobacco Use Status: Never used Tobacco Advance Directives: No Advance Directives Information Provided: No service: No Physical Exam Vital Signs: Vital Signs: Last Vital Signs Temp 98 F 04/30/25 07:06 Pulse 52 04/30/25 07:06 Resp 16 04/30/25 07:06 BP 135/49 L 04/30/25 07:06 Pulse Ox 99 04/30/25 07:06 O2 Del Method Room Air 04/30/25 07:06 BMI result Body Mass Index 19.9 Appearance: Alert. Oriented X3. No acute distress. Eyes: Pupils equal, round and reactive to light. ENT: Pharynx normal. Neck: Normal inspection. Neck supple. CVS: Normal heart rate and rhythm. Pulses normal. Respiratory: No respiratory distress. Breath sounds normal. Abdomen: Soft and nontender. Skin: Skin warm and dry. Normal skin color. Normal skin turgor. Extremities: No lower extremity edema. RUE skin tears noted but no signs of infection I cleansed with saline and removed the stuck dressings with hydrogen peroxide - successful no further injury, wounds are clean Neuro: Oriented X 3. No motor deficit. No sensory deficit. CN2-12 intact Medical Decision Making Medical Decision Making MDM Narrative: 85 yo male with PMH of postural hypotension, MV prolapse seen here 04/27 now here needing wound dressing changes - there are no signs of infection. I used xeroform at this time given his wounds are not tacked down and dressings are stuck. He will be offered VNA by our CM team. I cleansed the wounds. Given supplies referred to here, VNA, PCP for next dressing change on Friday. Differential Diagnosis Differential Diagnoses: The differential diagnosis associated with the presentation includes skin tears, poor social support Admission/Observation Consideration of admission/observation: Escalation of care including admission/observation considered can be managed as outpatient I contacted our CM team they will order VNA Consult Healthcare Provider Management of the patient was discussed with: Recorder [employer] (wound care VNA talked to CM) External Record Review External record reviewed: Inpatient record and Outpatient record Social Determinants Patient?s care significantly limited by Social Determinants of Health including: Problems related to primary support group Discharge Plan Discharge Clinical Impression: Avulsion of skin Patient Disposition: Home, Self-Care Instructions: Skin Avulsion (ED) Additional Instructions: our case management department should be calling you to help with home VNA in the meantime your dressing should be changed every 48 hours - use xeroform, gauze, if you cannot get VNA please return to the ED for dressing change. you can also go to your primary care doctor. Prescriptions: No Action potassium chloride 10 mEq tablet extended release 10 meq PO DAILY furosemide 20 mg tablet 20 mg PO DAILY lisinopril 2.5 mg tablet 2.5 mg PO DAILY aspirin 81 mg Tablet,Delayed Release (Dr/Ec) 81 mg PO DAILY vitamin B complex Tablet 1 tab PO DAILY cholecalciferol (vitamin D3) [Vitamin D3] 25 mcg (1,000 unit) Tablet 25 mcg PO DAILY Move Free e-Tag 750 mg-100 mg- 1.65 mg-108 mg Tablet 1 tab PO DAILY One-A-Day Men's 50 Plus 400-370 mcg Tablet 1 tab PO DAILY coQ10 (ubiquinol) 200 mg Capsule 200 mg PO DAILY Eliquis 2.5 mg Tablet 2.5 mg PO BID Qty: 180 0RF Interventions: ED Discharge Assessment Last Done: 04/30/25 07:34 Print Language: Kuwaiti
[2025-04-30 07:34] VITALS: BP 135/49; PULSE 52; RESP 16; TEMP 36.6; O2SAT 99
--- OUTSIDE RECORDS SUMMARY | 2025-04-30 07:34 | XMS_ITS | Clinical Summary ---
Author Organization [facility] Address [address] [place] [id number] Phone Care Team Providers Care Trauma Doctor Name Role Phone Liliya Holden MD Primary Care Provider [phone] Allergies Active Allergy Reactions Criticality Noted Date [...] a day. Active glucosamine/msm/c hondroit sulf (GLUCOSAMINE [id number] T ORAL) Take by mouth. Active Social [...] file Insurance MEDICARE PART A & B [facility] POS EPO MEDICARE PART A & B [facility] POS EPO MEDICARE PART A & B [facility] POS EPO MEDICARE PART A & B [facility] POS EPO MEDICARE PART A & B [facility] POS EPO MEDICARE PART A & [facility] PART A & B [facility] POS EPO MEDICARE PART A & B [facility] POS EPO MEDICARE PART A & B [employer] POS EPO Care Teams Trauma Doctor Relationship Specialty Start Date End Date Liliya Holden MD [address] [place] [id number] [email or web address] PCP - General Internal Medicine 06/12/21 Additional Source Comments The information contained in this document represents components of the legal health record. It is not the complete legal health record.[facility]
--- OUTSIDE RECORDS SUMMARY | 2025-04-30 07:34 | XMS_ITS | Clinical Summary ---
[facility] Address [address] [place] [address] Care Team Providers Care Product Development Scientist Name Role Phone Liliya Holden MD Primary Care Provider [phone] Family History Medical History Relation Name Comments [...] age to complete this topic Care Teams Product Development Scientist Relationship Specialty Start Date End Date Liliya Holden MD PCP - General 04/12/19
--- NOTE | 2025-04-30 07:59 | MHC.CM.PN ---
Addendum entered by Dilcia Aparicio 04/30/25 11:27: [facility] has accepted the case for home services wound management. They have been informed that the Face 2 Face document will be available on Friday. A detailed VM has been left for the patient re: SOC Friday with [facility] for wound care and assessment. Original Note: A case management consult has been received from the ER. Patient lives alone. He is not able to perform wound care independently. Dr Shrestha has referred the patient for home services. A referral has been sent to [facility] for wound management and wound management education. Plan is to contact the patient once the referral has been accepted. He has been discharged from the ER to home prior to meeting with case management.
== END 2025-04-30 07:44 | disposition home or self-care (01) ==
PROVIDERS: Emergency Provider Emergency Medicine; PCP Internal Medicine
DX: S41.111A Laceration without foreign body of right upper arm, initial encounter (principal); X58.XXXA Exposure to other specified factors, initial encounter; Y93.9 Activity, unspecified; Y92.019 Unspecified place in single-family (private) house as the place of occurrence of the external cause; Y99.9 Unspecified external cause status
CPT/HCPCS: 99282

== ENCOUNTER 2025-05-02 06:34 | Emergency (ER) | payer MEDICARE, SELFPAY ==
--- OUTSIDE RECORDS SUMMARY | 2010-01-03 05:15 | XMS_ITS | Continuity of Care Document ---
Author Organization [facility] Address [address] [facility] [address] [place] [address] Phone Care Team Providers Care Crane Operator Name Role Phone Zion Jauregui MD Unavailable [...] Diagnoses Date Provider Providers Copied on Encounter [facility], [address] [facility] [address], [place], [place], [address] [place] [address], tel:[phone] [facility] No Information Mar-3 1-201 0 Shania Donovan. [address] [facility], [place], [address] [place] [address], . tel:[phone] Referring Provider: Zion Montejo, [address] [facility], [place], [address] [place] [address]. tel:[phone] [facility], [address] [facility] [address] , [place], [address] [place] [address], tel:[phone] [facility] No Information Mar-3 0-[address] [facility], [address] [facility], [place], [address] [place] [address], tel:[phone] [facility] No Information Mar-1 8-201 0 [place] Sulema. [address] [facility], [place], [address] [place] [address], . tel:[phone] Referring Provider: Sulema Baumaner, [address], [place], [address] [place] [address]. tel:[phone] [facility], [address] [facility], [place], [address] [place] [address], tel:[phone] [facility] No Information Nathaniel-0 6-201 0 [place] Sulema. [address] [facility], [place], [address] [place] [address], . tel:[phone] Referring Provider: Sulema Saravia, [address] [facility], [place], [address] [place] [address]. tel:[phone] [facility], [address] [facility], [place], [address] [place] [address], tel:[phone] [facility] No Information Dec-0 8-200 9 Rani Sulema. [address], [place], [address] [place] [address], . tel:[phone] Referring Provider: Sulema Saravia, [address], [place], [address]. tel:[phone] [facility], [address] [facility], [place], [place], [id number], tel:[phone] [facility] No Information Dec-0 200 9 Saji Veronica. [address], [id number], . tel:[phone] Referring Provider: Jeremías Petersen, [address], [place], [address]. tel:[phone] [facility], [address], [id number], tel:[phone] [facility] No Information Dec-0 9 Saji Veronica. [address], [id number], [place]. tel:[phone] Referring Provider: Jeremías Petersen, [address], [address]. tel:[phone] Office/Outpt E&M Estab Phyllis RAMIREZ, [address], [facility] [address], [place], [place], [id number], tel:[phone] Phyllis RAMIREZ No Information Dec-0 200 9 No Information Referring Provider: Jeremías Petersen, [address], [address]. tel:[phone] [facility], [address], [place], [place], [id number], tel:[phone] [facility] No Information Dec-[address] [facility]. [address], [place], [address] [place] [address], . tel:[phone] Referring Provider: Jeremías Petersen, [address] [facility], [place], [address] [place] [address]. tel:[phone] [facility], [address] [facility] [address] , [place], [address] [place] [address], tel:[phone] [facility] No Information 9 Saji Veronica. [address] [facility], [place], [address] [place] [address], . tel:[phone] Referring Provider: Jeremías Petersen, [address], [place], [address] [place] [address]. tel:[phone] Offic/outpt E&m Estab Low-mod [facility], [address] [place] [address], [place], [address] [place] [address], tel:[phone] [facility] No Information 9 Raymond Aburto. [address], [place], [address] [place] [address], . tel:[phone] Referring Provider: Lamonte Torres, [address], [place], [address] [place] [address]. tel:[phone] [facility], [address] [facility], [place], [address] [place] [address], tel:[phone] [facility] No Information 9 Raymond Aburto. [address], [place], [address] [place] [address], . tel:[phone] Referring Provider: Lamonte Torres, [address], [place], [address] [place] [address]. tel:[phone] [facility], [address], [place], [address] [place] [address], tel:[phone] [facility] No Information 9 Raymond Aburto. [address] [place], [place] [address]way [facility], [place], [address] [place] [address], . tel:[phone] Referring Provider: Lamonte Torres, [address] [place] [address], [place], [address] [place] [address]. tel:[phone] [facility], [address] [facility], [place], [address] [place] [address], tel:[phone] [facility] No Information 8 Saji Veronica. [address] [place] [address], [address] [place] [address], . tel:[phone] Referring Provider: Jeremías Petersen, [address] [place] [address], [address] [place] [address]. tel:[phone] Offic Cons New/Estab Low Phyllis RAMIREZ, [address], [facility] [address], [place], [place], [id number], tel:[phone] Phyllis RAMIREZ No Information 8 No Information Referring Provider: Jeremías Petersen, [address] [place] [address], [address] [place] [address]. tel:[phone] [facility], [address] [facility], [place], [address] [place] [address], tel:[phone] [facility] No Information 8 Roe Cotto. [address], [place], [address] [place] [address], . tel:[phone] Referring Provider: [place], [address], [place], [address] [place] [address]. tel:[phone] [facility], [address] [place], [place], [id number], tel:[phone] [facility] No Information 8 Saji Veronica. [address], [place], [place], [id number], . tel:[phone] Referring Provider: Jeremías Petersen, [address], [address] [place] [address]. tel:[phone] [facility], [address] [facility], [place], [id number], tel:[phone] [facility] No Information 8 [facility]. [address], [address] [place] [address], . tel:[phone] Referring Provider: Jeremías Petersen, [address], [address] [place] [address]. tel:[phone] [facility], [address], [place], [place], [id number], tel:[phone] [facility] No Information 8 Keagan Oneal. [address], [address] [place] [address], . tel:[phone] Referring Provider: Jeremías Petersen, [address], [address] [place] [address]. tel:[phone] [facility], [address], [place], [place], [id number], tel:[phone] [facility] No Information 8 Saji Veronica. [address], [id number], . tel:[phone] Referring Provider: Jeremías Petersen, [address], [address]. tel:[phone] [facility], [address], [place], [place], [id number], tel:[phone] [facility] No Information 8200 8 Saji Cochran [address], [id number], . tel:[phone] Referring Provider: Jeremías Petersen, [address], [address]. tel:[phone] Family History Family Member Type Diagnosis Age At Onset Father Problem (finding) chronic obstructive jane g disease 82 Mother Problem (finding) Peritonits/ Diverticuli tis 77 Payers Payer name Insurance type Covered constitution party ID Sal espinal(s) Medicare [id number] Mail Hand[employer] Benefit Plan [id number] Social History Type Description Quantity Date Captured [...]
[2025-05-02 06:55] VITALS: BP 133/49; PULSE 50; RESP 16; TEMP 36.6; O2SAT 98; BMI 20.5
--- OUTSIDE RECORDS SUMMARY | 2025-05-02 08:04 | XMS_ITS | Clinical Summary ---
Author Organization [facility] Address [address] [place] [phone] Phone Care Team Providers Care Robot Operator Name Role Phone Liliya Holden MD Primary Care Provider [phone] Allergies Active Allergy Reactions Criticality Noted Date [...] a day. Active glucosamine/msm/c hondroit sulf (GLUCOSAMINE [id number] T ORAL) Take by mouth. Active Social [...] file Insurance MEDICARE PART A & B [facility] POS EPO MEDICARE PART A & B [facility] POS EPO MEDICARE PART A & B [facility] POS EPO MEDICARE PART A & B [facility] POS EPO MEDICARE PART A & B [facility] POS EPO MEDICARE PART A & [facility] PART A & B [facility] POS EPO MEDICARE PART A & B [facility] POS EPO MEDICARE PART A & B [employer] POS EPO Care Teams Robot Operator Relationship Specialty Start Date End Date Liliya Holden MD [address] [place] [id number] [email or web address] PCP - General Internal Medicine 06/12/21 Additional Source Comments The information contained in this document represents components of the legal health record. It is not the complete legal health record.[facility]
--- OUTSIDE RECORDS SUMMARY | 2025-05-02 08:04 | XMS_ITS | Clinical Summary ---
[facility] Organization [facility] ity Address [address] [place] [address] Care Team Providers Care Hardwood Floor Sander Name Role Phone Liliya Holden MD Primary Care Provider [phone] Family History Medical History Relation Name Comments [...] age to complete this topic Care Teams Hardwood Floor Sander Relationship Specialty Start Date End Date Liliya Holden MD PCP - General 04/12/19
--- NOTE | 2025-05-02 10:02 | ED.GENADULT ---
HPI - General Adult General Chief complaint: Wound/Laceration Stated complaint: right elbow bandage needs to be replaced Time Seen by Provider: 05/02/25 09:07 Source: patient, RN notes reviewed and old records reviewed Mode of arrival: ambulatory Limitations: no limitations History of Present Illness ED Provider: iDpesh HPI narrative: 85-year-old male presents for evaluation of right elbow wound. Patient was seen here a few days ago after a fall and returned on 04/30/2025 for a dressing change. He has 2 skin tears to his right elbow area The patient also reports that he is on Eliquis and has been for about 1 month due to a mitral valve replacement. He reports that he read the brochure and it is as not to be on Eliquis. ? He is requesting to be placed back on his warfarin Denies any fevers, chills or pain. Related Data Home Medications ?Medication ?Instructions ?Recorded ?Confirmed aspirin 81 mg tablet,delayed 81 mg PO DAILY 03/01/25 03/01/25 release cholecalciferol (vitamin D3) 25 25 mcg PO DAILY 03/01/25 03/01/25 mcg (1,000 unit) tablet (Vitamin D3) coQ10 (ubiquinol) 200 mg capsule 200 mg PO DAILY 03/01/25 03/01/25 furosemide 20 mg tablet 20 mg PO DAILY 03/01/25 03/01/25 glucosam 750 mg-chondroi 100 1 tab PO DAILY 03/01/25 03/01/25 mg-hyalur 1.65 mg-CF borate 108 mg tablet ([facility]) lisinopril 2.5 mg tablet 2.5 mg PO DAILY 03/01/25 03/01/25 multivitamin with minerals-folic 1 tab PO DAILY 03/01/25 03/01/25 acid 400 mcg-lycopene 370 mcg tablet (One-A-Day Men's 50 Plus) potassium chloride 10 mEq 10 meq PO DAILY 03/01/25 03/01/25 tablet,extended release vitamin B complex 1 tab PO DAILY 03/01/25 03/01/25 Previous Rx's ?Medication ?Instructions ?Recorded apixaban 2.5 mg tablet (Eliquis) 2.5 mg PO BID #180 tabs 03/02/25 Allergies Allergy/AdvReac Type Severity Reaction Status Date / Time Iodinated Contrast Media Allergy Unknown ANAPHYLAXIS Verified 05/02/25 06:56 (CONTRAST, IV) iodine (IODINE) Allergy Unknown RASH Verified 05/02/25 06:56 Review of Systems Constitutional: Constitutional: Denies body ache(s), Denies chills and Denies headache(s) ENT: Denies headache(s) Musculoskeletal: Musculoskeletal: Denies arthralgias, Denies joint swelling and Denies limited range of motion Integumentary/Breasts: Skin/Breast: Denies erythema and Reports wounds Neurologic: Denies headache(s) [facility] Past Medical History Medical History Cognitive impairment Mitral stenosis Surgical History S/P transcatheter mitral valve replacement (TMVR) Social History Social History Household Members: None Housing: House Do you presently have visiting nurse or other home services: No Unable to assess alcohol history related to: Unknown Alcohol intake: unknown Patient Tobacco Use Status: Never used Tobacco Advance Directives: No Advance Directives Information Provided: Yes service: No Physical Exam ED Vital Signs: Vital Signs - 24 hr 05/02/25 06:55 05/02/25 10:46 Temperature 98 F 98 F Pulse Rate 50 50 Respiratory Rate 16 16 Blood Pressure 133/49 L 133/49 L Pulse Oximetry 98 98 Oxygen Delivery Method Room Air Room Air BMI result Body Mass Index 20.5 Const General: healthy appearing, comfortable, no acute distress, alert and awake Nutritional Appearance: well nourished Orientation/consciousness: patient oriented x3 HENMT Head: Yes normocephalic and Yes atraumatic Eyes Eyelids: Yes eyelids normal Conjunctivae: conjunctivae normal Sclerae: sclerae normal Corneas: corneas normal Pupils: Equal, round and reactive pupils present EOM: EOMs intact bilaterally Neck Neck: Yes full ROM Resp Effort & Inspection: normal respiratory effort, able to speak in complete sentences and not labored Skin Other: Healing skin tears to the right upper extremity. There is minimal bleeding from a wound to the right lateral elbow. No surrounding erythema, no purulent discharge, no significant edema. Neuro General: patient oriented x3 Cranial nerves: Yes Equal, round and reactive pupils present and Yes Bilaterally intact EOM present Cognition (Neuro): normal cognition Extrem Other: Moving all extremities well without any obvious deformities Course Reevaluation(s) Reevaluation #1: The patient was ultimately discharged home. VNA was able to be set up. However recommendations for dressing changes q.o.d. with Xeroform, nonstick and dry gauze wrap around. Time: 11:35 Medical Decision Making Medical Decision Making MDM Narrative: Patient has healing skin tear to the right upper extremity. He is presenting for a dressing change. There are no obvious signs of infection. This is the patient's 3rd visit for similar complaint after a fall. We will attempt to have case management set up visiting nurse saw it the patient does not need to return to the ER for simple dressing change that do not appear infected. I did discuss with Dr. Hughes, the patient's senior behavioral scientist who reports that the patient's valve is a bioprosthesis and there was no true contraindication to Eliquis. I discussed this with the patient and we will refer him to cardiology where he can discuss what his best option is going forward Differential Diagnosis Differential Diagnoses: The differential diagnosis associated with the presentation includes Skin tear Skin avulsion Laceration Mitral valve replacement Cellulitis Discharge Plan Discharge Clinical Impression: Avulsion of skin Patient Disposition: Home, Self-Care Instructions: Skin Tear (ED) Additional Instructions: You should have visiting nurse set up to help with your dressing changes. You may follow up with your primary doctor. You can return in 48 hours if you are unable to have any dressing changes in the outpatient setting. You do not have a true contraindication to Eliquis and you can use it for your biosynthetic valve. Follow up with Cardiology to discuss your options or if you wish to be placed back on your warfarin Prescriptions: No Action potassium chloride 10 mEq tablet extended release 10 meq PO DAILY furosemide 20 mg tablet 20 mg PO DAILY lisinopril 2.5 mg tablet 2.5 mg PO DAILY aspirin 81 mg Tablet,Delayed Release (Dr/Ec) 81 mg PO DAILY vitamin B complex Tablet 1 tab PO DAILY cholecalciferol (vitamin D3) [Vitamin D3] 25 mcg (1,000 unit) Tablet 25 mcg PO DAILY [facility] 750 mg-100 mg- 1.65 mg-108 mg Tablet 1 tab PO DAILY One-A-Day Men's 50 Plus 400-370 mcg Tablet 1 tab PO DAILY coQ10 (ubiquinol) 200 mg Capsule 200 mg PO DAILY Eliquis 2.5 mg Tablet 2.5 mg PO BID Qty: 180 0RF Referrals: [facility] [Outside] Elkin Hughes MD [Physician, Cardiology] Referral Note: anticoagulation questions. Currently on eliquis Interventions: ED Discharge Assessment Last Done: 05/02/25 10:46 Discharge Date/Time: 05/02/25 10:47 Print Language: Mohawk
[2025-05-02 10:46] VITALS: BP 133/49; PULSE 50; RESP 16; TEMP 36.6; O2SAT 98
--- NOTE | 2025-05-02 11:26 | MHC.CM.ED ---
Received case management consult. Patient was in ER on Friday due to elbow wound. [facility] was arranged at that time. Patient returned to ER before being seen by VNA. T/W spoke with [facility]. [facility] is requesting wound orders and F2F. Gold RAMIREZ aware of need for wound orders. Dr Garcia will sign F2F. Continue to monitor for d/c needs.
== END 2025-05-02 10:47 | disposition home or self-care (01) ==
PROVIDERS: Emergency Provider Emergency Medicine; PCP Internal Medicine
DX: Z48.00 Encounter for change or removal of nonsurgical wound dressing (principal); S41.111D Laceration without foreign body of right upper arm, subsequent encounter; W19.XXXD Unspecified fall, subsequent encounter; Z91.81 History of falling
CPT/HCPCS: 99282; 99283

== ENCOUNTER 2025-05-15 10:51 | Emergency (ER) | payer MEDICARE, SELFPAY ==
[2025-05-15 10:56] VITALS: BP 151/71; PULSE 62; RESP 18; O2SAT 97; BMI 19.0
--- NOTE | 2025-05-15 11:01 | ED_ITS ---
HPI - General Adult General Chief complaint: General Medical Stated complaint: states he needs his bandage changed Time Seen by Provider: 05/15/25 11:05 Source: patient Mode of arrival: ambulatory Limitations: no limitations History of Present Illness ED Provider: Erum Colbert PA-C HPI narrative: Patient is an 85 year old assigned male at with a history of mitral valve prolapse s/p procedure in [place], pulmonary hypertension, and pulmonary fibrosis presenting to the emergency department today for a dressing change. Patient states that he injured his right arm on 04/27/2025 and he has been coming here for wound checks and dressing changes because he missed his visiting nurse appointment. Patient states that he is here for a wound evaluation and dressing change. Patient denies any other complaints at this time. Related Data Home Medications ?Medication ?Instructions ?Recorded ?Confirmed aspirin 81 mg tablet,delayed 81 mg PO DAILY 03/01/25 0 03/01/25 release cholecalciferol (vitamin D3) 25 25 mcg PO DAILY 03/01/25 mcg (1,000 unit) tablet (Vitamin D3) coQ10 (ubiquinol) 200 mg capsule 200 mg PO DAILY 03/0103/01/25 furosemide 20 mg tablet 20 mg PO DAILY 03/01/2502/04 glucosam 750 mg-chondroi 100 1 tab PO DAILY 03/01/25 0 03/01/25 mg-hyalur 1.65 mg-CF borate 108 mg tablet ([facility]) lisinopril 2.5 mg tablet 2.5 mg PO DAILY 03/01/25 multivitamin with minerals-folic 1 tab PO DAILY 03/01/25 acid 400 mcg-lycopene 370 mcg tablet (One-A-Day Men's 50 Plus) potassium chloride 10 mEq 10 meq PO DAILY 03/01/25 tablet,extended release vitamin B complex 1 tab PO DAILY 03/01/2502/04 Previous Rx's ?Medication ?Instructions ?Recorded apixaban 2.5 mg tablet (Eliquis) 2.5 mg PO BID #180 ta bs 03/02/25 Allergies Allergy/AdvReac Type Severity Reaction Status Date / Time Iodinated Contrast Media Allergy Unknown ANAPHYLAXIS Verified 05/15/25 10:58 (CONTRAST, IV) iodine (IODINE) Allergy Unknown RASH Verified 05/15/25 10:58 Review of Systems 2 Constitutional: Constitutional: Reports no additional constitutional complaints, Denies chills, Denies fever(s) and Denies night sweats Eyes: Eyes: Reports no additional eye complaints, Denies blurry vision, Denies change in vision, Denies diplopia, Denies eye discharge, Denies loss of vision and Denies eye pain ENT: Denies dizziness Cardiovascular: Cardiovascular: Reports no additional cardiovascular complaints, Denies chest pain, Denies lightheadedness, Denies Loss of Consciousness and Denies dyspnea Respiratory: Respiratory: Reports no additional respiratory complaints and Denies dyspnea Gastrointestinal: Gastrointestinal: Reports no additional gastrointestinal complaints, Denies abdominal pain, Denies melena, Denies hematochezia, Denies change in bowel habits and Denies change in stool character Genitourinary: Genitourinary: Reports no additional male genitourinary complaints, Denies hematuria, Denies oliguria, Denies difficulty urinating, Denies dysuria, Denies urinary frequency, Denies urinary hesitancy, Denies urinary incontinence and Denies urinary urgency Musculoskeletal: Musculoskeletal: Reports no additional musculoskeletal complaints, Denies numbness and Denies tingling Comments: right upper extremity wound Neurologic: Denies dizziness, Denies loss of vision, Denies numbness and Denies tingling Psychiatric: Psychiatric: Reports no additional psychiatric complaints Endocrine: Endocrine: Reports no additional endocrine complaints Hematologic/Lymphatic: Hematologic/Lymphatic: Reports no additional hematologic/lymphatic complaints Allergic/Immunologic: Allergic/Immunologic: Reports no additional allergic/immunologic complaints [facility] Past Medical History Attestation statement: The following information was validated with the patient. Source: old records reviewed and nursing notes reviewed Medical History Cognitive impairment Mitral stenosis Surgical History S/P transcatheter mitral valve replacement (TMVR) Social History Social History Household Members: None Housing: House Do you presently have visiting nurse or other home services: No Unable to assess alcohol history related to: Unknown Alcohol intake: unknown Patient Tobacco Use Status: Never used Tobacco Advance Directives: No Advance Directives Information Provided: Yes service: No Physical Exam ED Vital Signs: Vital Signs - 24 hr 05/15/25 10:56 05/15/25 11:10 Temperature 98.0 F Pulse Rate 62 62 Respiratory Rate 18 18 Blood Pressure 151/71 H 151/71 H Pulse Oximetry 97 97 Oxygen Delivery Method Room Air Room Air BMI result Body Mass Index 19.0 Const General: cooperative, no acute distress, alert and awake Nutritional Appearance: well nourished Orientation/consciousness: patient oriented x3 HENMT Head: Yes normal to inspection and Yes atraumatic Ears: hearing grossly normal bilaterally and external ears normal General nose exam: Normal external nose present, no nasal discharge noted and no epistaxis Face and sinus: Yes normal facial exam, No abrasion and No laceration Mouth: Normal oral and palatal mucosa present, no drooling and no muffled voice Eyes General: appearance normal, both eyes and all related structures Periorbital: periorbital findings normal Eyelids: Yes eyelids normal Conjunctivae: conjunctivae normal Pupils: Equal, round and reactive pupils present EOM: EOMs intact bilaterally Neck Neck: Yes normal visual inspection and Yes full ROM Resp Effort & Inspection: normal respiratory effort and able to speak in complete sentences Neuro General: patient oriented x3, moves all extremities and CN's II-XI intact bilaterally Cranial nerves: Yes Equal, round and reactive pupils present Cognition (Neuro): normal cognition Extrem Other: General: Yes full ROM and Yes capillary refill normal Psych Appearance: grossly normal Mental Status: mental status grossly normal Affect: normal affect Attitude: cooperative Thought process: Normal thought process present Thought content: Normal thought content present Insight: Good insight present (Psych) Medical Decision Making Medical Decision Making MDM Narrative: Patient is an 85 year old assigned male at with a history of mitral valve prolapse s/p procedure in [place], pulmonary hypertension, and pulmonary fibrosis presenting to the emergency department today for a dressing change. Patient's physical exam was as noted in the physical exam portion of this note. Patient's wound is healed - there are no open areas remaining. I explained my physical exam findings to the patient. I answered all questions asked by the patient. I stressed the importance of the patient taking his medication as directed (either prescribed or as the over the counter packaging recommends). I stressed the importance of the patient following up with his primary care provider. I stressed the importance of the patient returning to the emergency department immediately if his symptoms were to worsen or if he were to develop any dizziness, shortness of breath, difficulty breathing, chest pain, blurry vision, loss of vision, nausea, vomiting, abdominal pain, fever, chills, back pain, or any other complaints. Patient verbalized agreement and understanding with this treatment plan and discharge. Differential Diagnosis Differential Diagnoses: The differential diagnosis associated with the presentation includes Wound check Wound re-evaluation Admission/Observation Consideration of admission/observation: Escalation of care including admission/observation considered Patient would have been admitted to the hospital had his clinical presentation warranted hospital admission. Discharge Plan Discharge Clinical Impression: Visit for wound check Patient Disposition: Home, Self-Care Additional Instructions: Your wound is 99% healed and no longer needs specific dressings. IF you are prescribed medications and/or you are taking over the counter medications - it is very important you continue to do so as prescribed / directed unless told otherwise. Follow up with your primary care provider. Return to the emergency department immediately if your symptoms worsen or if you develop any numbness, tingling, dizziness, shortness of breath, difficulty breathing, chest pain, blurry vision, loss of vision, nausea, vomiting, abdominal pain, fever, chills, back pain, or any other complaints. Please see the information below about our Patient Portal. If you are not yet enrolled in the [facility] Patient Portal, you will receive an enrollment email invitation following your visit to any [facility] setting. You may also self-enroll in the Patient Portal by visiting our website: [email or web address] The following information is required to access the Patient Portal: - Your [facility] Medical Record Number - Your personal home email address (must match what is in your electronic medical record, Registration staff can assist with this) - Name - Date of Capabilities of the Patient Portal: - Message some providers - View upcoming appointments - Access your health summary, medical history, and visit history - View current conditions and allergies - View procedure and lab results - View your medications, including guidelines, side effects, and precautions - Complete pre-appointment questionnaires requested by your provider - Ready summary reports of your office visits and procedures To access the Patient Portal Mobile [employer], follow these directions: - Search [employer] in the Lizbeth Store or Google Play Store - Download the Lizbeth - Search for [facility] - Enter your login/password Prescriptions: No Action potassium chloride 10 mEq tablet extended release 10 meq PO DAILY furosemide 20 mg tablet 20 mg PO DAILY lisinopril 2.5 mg tablet 2.5 mg PO DAILY aspirin 81 mg Tablet,Delayed Release (Dr/Ec) 81 mg PO DAILY vitamin B complex Tablet 1 tab PO DAILY cholecalciferol (vitamin D3) [Vitamin D3] 25 mcg (1,000 unit) Tablet 25 mcg PO DAILY [facility] 750 mg-100 mg- 1.65 mg-108 mg Tablet 1 tab PO DAILY One-A-Day Men's 50 Plus 400-370 mcg Tablet 1 tab PO DAILY coQ10 (ubiquinol) 200 mg Capsule 200 mg PO DAILY Eliquis 2.5 mg Tablet 2.5 mg PO BID Qty: 180 0RF Referrals: Liliya Holden MD [Primary Care Provider, Medical] Interventions: ED Discharge Assessment Last Done: 05/15/25 11:10 Discharge Date/Time: 05/15/25 11:11 Print Language: Lao
[2025-05-15 11:10] VITALS: BP 151/71; PULSE 62; RESP 18; TEMP 36.7; O2SAT 97
== END 2025-05-15 11:11 | disposition home or self-care (01) ==
PROVIDERS: Emergency Provider Emergency Medicine; PCP Internal Medicine
DX: Z48.00 Encounter for change or removal of nonsurgical wound dressing (principal)
CPT/HCPCS: 99282

== ENCOUNTER 2025-05-20 09:37 | Emergency (ER) | payer MEDICARE, SELFPAY ==
[2025-05-20 09:41] VITALS: BP 113/56; PULSE 59; RESP 18; TEMP 36.6; O2SAT 98; BMI 19.0
--- NOTE | 2025-05-20 09:42 | MHC.CM.ED ---
Patient is currently in ER waiting room. Received notification patient is active with [facility]. Return referral made in [facility] so agency can follow for d/c needs.
[2025-05-20 10:04] LABS: MANUAL DIFF FLAG NO
[2025-05-20 10:09] LABS: Hematocrit 36.1 % (42.0-52.0); Hemoglobin 12.3 g/dl (14.0-18.0); Imm Gran Abs Auto 0.01 X10*3/uL (0.00-0.03); Imm Gran Pct Auto 0.2 % (0.0-0.4); Lymphocytes Absolute Auto 1.0 X10*3/uL (1.2-4.9); Mean Corpuscular HGB Conc 34.1 g/dl (31.0-36.0); Mean Corpuscular Hemoglobin 32.9 pg (27.0-33.0); Mean Corpuscular Volume 96.5 fL (80.0-98.0); NRBC Abs Auto 0.000 X10*3/uL (0.0-0.012); NRBC Pct Auto 0.0 /100WBC (0.0-0.2); Platelet Count 152 X10*3/uL (160-400); Red Blood Count 3.74 X10*6/uL (4.60-5.80); White Blood Count 4.7 X10*3/uL (4.8-10.8)
[2025-05-20 10:13] LABS: INTERNATIONAL NORM RATIO 1.8 (0.9-1.1); Prothrombin Time 21.0 SEC (10.9-12.4)
[2025-05-20 10:17] LABS: Anion Gap 14 (12-20); Blood Urea Nitrogen 27 mg/dL (9-16); Calcium 9.2 mg/dL (8.4-10.2); Carbon Dioxide 26 mmol/L (22-29); Chloride 109 mmol/L (96-108); Creatinine Clr Calc Pharmacy 51.8; Estimated Glomerular Filt Rate > 60; Potassium 4.0 mmol/L (3.3-5.1); Sodium 145 mmol/L (135-145)
--- NOTE | 2025-05-20 11:16 | ED_ITS ---
HPI - General Adult General Chief complaint: General Medical Stated complaint: med issues Time Seen by Provider: 05/20/25 11:16 Source: patient Mode of arrival: ambulatory Limitations: no limitations History of Present Illness ED Provider: HPI narrative: Patient states that [facility] instructed him not to take his warfarin for the past 3-5 days he is not able to fully remember because his levels were too high and he was waiting for VNA to come home today but they did not come and he came in to emergency department to find out his INR. Prior fall 2 right hip has been seen for that not an issue at this time Related Data Home Medications ?Medication ?Instructions ?Recorded ?Confirmed aspirin 81 mg tablet,delayed 81 mg PO DAILY 03/01/25 0 03/01/25 release cholecalciferol (vitamin D3) 25 25 mcg PO DAILY 03/01/25 mcg (1,000 unit) tablet (Vitamin D3) coQ10 (ubiquinol) 200 mg capsule 200 mg PO DAILY 03/0103/01/25 furosemide 20 mg tablet 20 mg PO DAILY 03/01/2502/04 glucosam 750 mg-chondroi 100 1 tab PO DAILY 03/01/25 0 03/01/25 mg-hyalur 1.65 mg-CF borate 108 mg tablet ([facility]) lisinopril 2.5 mg tablet 2.5 mg PO DAILY 03/01/25 multivitamin with minerals-folic 1 tab PO DAILY 03/01/25 acid 400 mcg-lycopene 370 mcg tablet (One-A-Day Men's 50 Plus) potassium chloride 10 mEq 10 meq PO DAILY 03/01/25 tablet,extended release vitamin B complex 1 tab PO DAILY 03/01/2502/04 Previous Rx's ?Medication ?Instructions ?Recorded apixaban 2.5 mg tablet (Eliquis) 2.5 mg PO BID #180 ta bs 03/02/25 Allergies Allergy/AdvReac Type Severity Reaction Status Date / Time Iodinated Contrast Media Allergy Unknown ANAPHYLAXIS Verified 05/20/25 09:47 (CONTRAST, IV) iodine (IODINE) Allergy Unknown RASH Verified 05/20/25 09:47 Milk Containing Products Allergy Unknown Verified 05/20/25 09:47 (Dairy) Review of Systems 2 Constitutional: Constitutional: Reports as per [facility] Past Medical History Medical History Cognitive impairment Mitral stenosis Surgical History S/P transcatheter mitral valve replacement (TMVR) Social History Social History Household Members: None Housing: House Do you presently have visiting nurse or other home services: No Unable to assess alcohol history related to: Unknown Alcohol intake: unknown Patient Tobacco Use Status: Never used Tobacco Smoked in Last 30 Days: No Use of substances other than those prescribed or required for medical reasons: No Advance Directives: No Advance Directives Information Provided: Yes Do you have a plan to hurt others: No Plan service: No Physical Exam ED Vital Signs: Vital Signs - 24 hr 05/20/25 09:41 05/20/25 11:32 Temperature 98 F Pulse Rate 59 55 Respiratory Rate 18 16 Blood Pressure 113/56 L 122/55 L Pulse Oximetry 98 99 Oxygen Delivery Method Room Air BMI result Body Mass Index 19.0 Const Other: * Gen: ?Overall well-appearing patient * CV: RRR, no obvious murmurs appreciated * Resp: ?No wheezing rales rhonchi no stridor moving air well * Abd: ?Bowel sounds are present, no tenderness no rebound no rigidity * MSK: FROM, strength 5/5 all extremities * Skin: Nonspecific bruising to right elbow * Neuro: ?Alert and oriented x3, moving upper and lower extremities symmetrically, no obvious facial asymmetry noted Medical Decision Making Medical Decision Making MDM Narrative: Patient is here for INR check, INR is 1.8, discussed with the patient to continue following up with a VNA For mitral valve replacement INR should be within the range of 2.5-3.5 We will update the patient, I did discuss with him to make sure that in the future he waits for his VNA to come by instead of coming to the ER for blood check he has no other concerns Differential Diagnosis Differential Diagnoses: The differential diagnosis associated with the presentation includes (Hypercoagulable state, hypoechoic we will state, spontaneous bleeding) Lab Data 05/20/25 09:56 05/20/25 09:56 Labs: Lab Results 05/20/25 Range/Units 09:56 WBC 4.7 L (4.8-10.8) X10*3/uL RBC 3.74 L (4.60-5.80) X10*6/uL Hgb 12.3 L (14.0-18.0) g/dl Hct 36.1 L (42.0-52.0) % MCV 96.5 (80.0-98.0) fL MCH 32.9 (27.0-33.0) pg MCHC 34.1 (31.0-36.0) g/dl RDW 13.0 (11.0-16.0) % Plt Count 152 L (160-400) X10*3/uL MPV 9.8 (9.4-12.4) fL Immature Gran % (Auto) 0.2 (0.0-0.4) % Neut % (Auto) 69.5 (45-73) % Lymph % (Auto) 20.9 (20-40) % Alexander % (Auto) 6.0 (2-11) % Eos % (Auto) 1.7 (0-4) % Baso % (Auto) 1.7 (0-2) % Lymph # (Auto) 1.0 L (1.2-4.9) X10*3/uL Alexander # (Auto) 0.3 (0.1-1.2) X10*3/uL Eos # (Auto) 0.1 (0.0-0.4) X10*3/uL Baso # (Auto) 0.1 (0.0-0.2) X10*3/uL Abs Immat Gran (auto) 0.01 (0.00-0.03) X10*3/uL Absolute Neuts (auto) 3.3 (2.0-8.3) x10*3/uL Absolute Nucleated RBC 0.000 (0.0-0.012) X10*3/uL Nucleated RBC % (auto) 0.0 (0.0-0.2) /100WBC PT 21.0 H D (10.9-12.4) SEC INR 1.8 H (0.9-1.1) Sodium 145 (135-145) mmol/L Potassium 4.0 (3.3-5.1) mmol/L Chloride 109 H (96-108) mmol/L Carbon Dioxide 26 (22-29) mmol/L Anion Gap 14 (12-20) BUN 27 H (9-16) mg/dL Creatinine 0.85 (0.5-1.4) mg/dL Estim Creat Clear Calc 51.8 Estimated GFR > 60 Random Glucose 136 H (60-115) mg/dL Calcium 9.2 (8.4-10.2) mg/dL Discharge Plan Discharge Clinical Impression: Low international normalized ratio (INR) Patient Disposition: Home, Self-Care Additional Instructions: Your INR is 1.8 your levels should be between 2.5 and 3.5 with the target level of 3.0 I recommend taking warfarin 3 mg twice a day for the next 2 days, then daily, your INR needs to be checked by VNA again to adjust warfarin intake Prescriptions: No Action potassium chloride 10 mEq tablet extended release 10 meq PO DAILY furosemide 20 mg tablet 20 mg PO DAILY lisinopril 2.5 mg tablet 2.5 mg PO DAILY aspirin 81 mg Tablet,Delayed Release (Dr/Ec) 81 mg PO DAILY vitamin B complex Tablet 1 tab PO DAILY cholecalciferol (vitamin D3) [Vitamin D3] 25 mcg (1,000 unit) Tablet 25 mcg PO DAILY [facility] 750 mg-100 mg- 1.65 mg-108 mg Tablet 1 tab PO DAILY One-A-Day Men's 50 Plus 400-370 mcg Tablet 1 tab PO DAILY coQ10 (ubiquinol) 200 mg Capsule 200 mg PO DAILY Eliquis 2.5 mg Tablet 2.5 mg PO BID Qty: 180 0RF Print Language: Yakut
--- OUTSIDE RECORDS SUMMARY | 2025-05-20 11:24 | XMS_ITS | Clinical Summary ---
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 Active glucosamine/msm/c hondroit sulf (GLUCOSAMINE [id number] T ORAL) Take by mouth. Active Social [...] file Insurance MEDICARE PART A & B [facility] POS EPO MEDICARE PART A & B [facility] POS EPO MEDICARE PART A & B [facility] POS EPO MEDICARE PART A & B [facility] POS EPO MEDICARE PART A & B [facility] POS EPO MED[facility] PART A & [facility] PART [facility] & B [facility] POS EPO MED[facility] PART A & B [facility] POS EPO MEDICARE PART A & B Member Subscriber Plan / Payer (Ef fective 2006-Present) Name:Ahmet Reddy Member ID:[id number] Relation to Subscriber:Self Name:Ahmet Reddy Subscriber ID:[id number] Payer ID:[id number] Group ID:Not on file Type:Medicare Address: [facility] [employer] [facility] [employer] [facility] [address] [place] [phone] [employer] HMO POS EPO Care Teams Setter Automatic Spinning Lathe Relationship Specialty Start Date End Date Liliya Holden MD [address] [place] [id number] [email or web address] PCP - General Internal Medicine 06/12/21 Additional Source Comments The information contained in this document represents components of the legal health record. It is not the complete legal health record.[facility]
[2025-05-20 11:32] VITALS: BP 122/55; PULSE 55; RESP 16; O2SAT 99
[2025-05-20 12:03] VITALS: BP 122/55; PULSE 55; RESP 16; TEMP 36.7; O2SAT 99
== END 2025-05-20 12:04 | disposition home or self-care (01) ==
PROVIDERS: Emergency Provider Emergency Medicine; PCP Internal Medicine
DX: R79.89 Other specified abnormal findings of blood chemistry (principal); Z79.899 Other long term (current) drug therapy; Z79.01 Long term (current) use of anticoagulants
CPT/HCPCS: 36415; 80048; 85025; 85610; 99283; 99284